=== PATIENT | female | born 1935 | race Caucasian/White ===

== ENCOUNTER 2016-06-01 08:04 | Inpatient (IN) ==
[2016-06-01] MEDS ORDERED: *HR* Morphine 2 MG/ML SYRINGE IVP PRN (09:42)
[2016-06-01] MEDS ORDERED: *HR* Dextrose 50 % in Water (Syg) 50 ML SYRINGE IVP PRN (09:42)
[2016-06-01] MEDS ORDERED: Dextrose Gel 15 GM PO PRN ×2 (09:42)
[2016-06-01] MEDS ORDERED: Ondansetron 4 MG/2 ML VIAL IVP PRN (09:42)
[2016-06-01] MEDS ORDERED: D5% in Water 1,000 ML IV PRN (09:42)
[2016-06-01] MEDS ORDERED: Naloxone 0.4 MG/ML INJ IVP PRN (09:42)
--- NOTE | 2016-06-01 11:36 | Internal Med History&Physical ---
<Thea Mcnally - Last Filed: 06/01/16 11:29> Date of Encounter: 06/01/16 Time of Encounter: 10:50 Assessment and Plan (1) Partial small bowel obstruction Current visit: No Status: Acute Pt had sudden onset sharp, constant,epigastric pain, n/v green and dk brown emesis last night at about 2200 at home. She states that she did not feel well for a few hours prior to that. Pt presented to [facility] for these symptoms and was transferred here. CT showed extensive colonic diverticulosis, mildly dilated proximal small bowel loops up to 3.1 cm with gradual transition to normal caliber loops in the mid abd, suggestive of low grade bowel obstruction. Pt states that her pain has subsided since the NG tube was placed. Abd distended , firm, with hyperactive bs. She is passing has and had a small bm on arrival here. NG to LIWS NPO LR @ 75ml/hr Consult Dr. Pelayo Protonix 40mg IV daily (2) Diabetes mellitus Current visit: No Status: Chronic Glucose 168. A1c 6.1% 1 month ago. Accucheck q6 and prn Sliding scale insulin Hypoglycemia protocol Qualifiers: Diabetes mellitus type: type 2 Diabetes mellitus complication status: with unspecified complications Diabetes mellitus skilled nursing insulin use: without skilled nursing use Qualified Code(s): E11.8 - Type 2 diabetes mellitus with unspecified complications (3) COPD (chronic obstructive pulmonary disease) Current visit: Yes Status: Chronic Pt states that she is well controlled on home medications. LSCTA ant and post. She wears home 02 2L. Continue 02 Continuous pulse ox Duoneb Budesonide neb Albuterol neb prn Qualifiers: COPD type: emphysema Emphysema type: unspecified Qualified Code(s): J43.9 - Emphysema, unspecified (4) Asthma Current visit: Yes Status: Acute Pt well controlled. Plan as above. Qualifiers: Asthma severity: unspecified severity Asthma complication type: uncomplicated Qualified Code(s): J45.909 - Unspecified asthma, uncomplicated (5) Anticoagulated on Coumadin Current visit: No Status: Chronic Pt denies history of stroke. CHADS2 score 3. INR therapeutic 2.8. Will hold pending surgical consult for determination of necessity of surgery. Will recheck daily. (6) Coronary artery disease Current visit: No Status: Chronic Denies chest pain. EKG shows paced rhythm. Stable. Qualifiers: Coronary Disease-Associated Artery/Lesion type: [place] artery [place] vs. transplanted heart: [place] heart Associated angina: without angina Qualified Code(s): I25.10 - Atherosclerotic heart disease of [place] coronary artery without angina pectoris (7) Pacemaker Current visit: No Status: Chronic Stable. EKG paced rhythm. (8) Paroxysmal atrial fibrillation Current visit: No Status: Chronic Plan as above. Internal Medicine - H&P: HPI Chief complaint: abd pain, n/v x 1 day Admitted From: Home Plans for Post Hospital Care: Home History of present illness: Ms. Rodas is a 80 year old female with history of COPD, DM, anemia, CAD, pacemaker, and afib, who began having nausea, vomiting, and sudden onset sharp epigastric pain at about 10pm last night. She had about 5 episodes of green and brown emesis prior to going to the ED. She denies fever, chills, or coffee ground emesis. CT shows small haital hernia, extensive diverticulosis, possible low grade bowel obstruction, reji renal cysts, and multiple scattered attenuating liver lesions. Follow up for those is recommended after pt's acute illness. Pt is now passing gas, had a small bowel movement and states that she feels better. NG on LIWS returning dk brown contents. I requested that the unit clerk call Dr. Pelayo to let him know that the pt has arrived. Past Med Surg Social Fam HX - Past Medical History Medical history: no medical history, atrial fibrillation, cancer, CHF, COPD, coronary artery disease, diabetes, GERD, hyperlipidemia, hypertension, pulmonary embolus, other Psychiatric history: no psych history - Past Surgical History Surgical History: angioplasty/stent, appendectomy, breast surgery, cataract, cholecystectomy, pacemaker/AICD - Social History Smoking Status: Former smoker Smokeless Tobacco Status: No Alcohol use: none Drug use: none - Family History Mother Living Status: Hx Family Cardiac Disorders: Yes (CHF) Hx Family Endocrine Disorder: Yes (Diabetes) Father Age: 87 Living Status: Age at : 87 Cause of : leukemia Hx Family Cardiac Disorders: Yes Hx Family Respiratory Disorders: Yes Hx Family Cancer: Yes Hx Family Endocrine Disorder: Yes Sister Living Status: Still Living Hx Family Cancer: Yes (Breast cancer) Internal Medicine - H&P: Meds Albuterol Sulfate [Albuterol Inhaler] 1 puff IH DAILY PRN 11/28/14 [History] Alendronate Sodium 70 mg PO QWEEK 11/28/14 [History] Atorvastatin [Lipitor] 80 mg PO HS 11/28/14 [History] Calcium Carbonate/Vitamin D3 [Calcium 250+D Tablet] 1 each PO BID 11/28/14 [ History] Clopidogrel [Plavix] 75 mg PO DAILY 11/28/14 [History] Ezetimibe [Zetia] 10 mg PO HS 11/28/14 [History] Formoterol Fumarate [Perforomist] 20 mcg IH BID 11/28/14 [History] Furosemide [Lasix] 20 mg PO DAILY 11/28/14 [History] GlipiZIDE [Glucotrol] 5 mg PO BIDWM 11/28/14 [History] Nitroglycerin 0.3 mg TD DAILY 11/28/14 [History] Sotalol HCl [Betapace] 120 mg PO BID 11/28/14 [History] Warfarin [Coumadin] 5 mg PO QMWF 02/23/15 [History] Budesonide 1 mg IH BID 04/28/16 [History] Cholecalciferol (D-3) [Vitamin D] 1,000 unit PO DAILY 04/28/16 [History] Diltiazem CD (24hr) [Cardizem CD] 120 mg PO BID 04/28/16 [History] Esomeprazole Magnesium [Nexium] 40 mg PO DAILY 04/28/16 [History] Isosorbide MONOnitrate (24 HR) [Imdur] 60 mg PO BID 04/28/16 [History] L.acidoph,Paracasei, B.lactis [Probiotic] 1 each PO 1200 04/28/16 [History] Warfarin [Coumadin] 7.5 mg PO QTUTHSA 04/28/16 [History] Esomeprazole Magnesium [Nexium] 40 mg PO DAILY 06/01/16 [History] Fish Oil/Dha/Epa [Fish Oil 1,200 mg Fish Oil] 2 each PO DAILY 06/01/16 [History] Tiotropium [Spiriva] 18 mcg IH 0700 06/01/16 [History] Allergies bacitracin [From Neosporin ([id number])] Allergy (Verified 06/01/16 00:13) Blister cetirizine Allergy (Verified 06/01/16 00:13) Confusion ciprofloxacin Allergy (Verified 06/01/16 00:13) Difficulty Breathing codeine Allergy (Verified 06/01/16 00:13) Drowsy diazepam [From Valium] Allergy (Verified 06/01/16 00:13) See Comments pt states it caused her to be in a trance miconazole [From Neosporin AF] Allergy (Verified 06/01/16 00:13) Blister Neomycin Allergy (Verified 06/01/16 00:13) Blister Penicillins Allergy (Verified 06/01/16 00:13) See Comments pt states she feels off balance when walking polymyxin B Allergy (Verified 06/01/16 00:13) Blister promethazine [From Phenergan] Allergy (Verified 06/01/16 00:) See Comments pt not sure, she states she received it while unconsious and her nurse told her to never take phenergan Sulfa (Sulfonamide Antibiotics) Allergy (Verified 06/01/16 00:13) Confusion All Systems PM: A 10-system review of systems was performed and is negative for pertinent findings except as documented above in the HPI. - Constitutional Constitutional: no chills, no fever(s), no weakness - Cardiovascular Cardiovascular ROS IM: chest pain, no diaphoresis, no dyspnea, no lightheadedness Additional comments: Pt states that abd pain radiated into chest last night. - Respiratory Respiratory: no cough, no dyspnea on exertion, no wheezing, no chest congestion - Gastrointestinal Gastrointestinal: abdominal pain, bloating, constipation, cramping, nausea, vomiting, no coffee ground emesis, no diarrhea, no dysphagia, no excessive flatus, no hematemesis, no hematochezia, no loose stools - Genitourinary Genitourinary: no dysuria - Integumentary Integumentary IM: rash - Constitutional Vitals: Temp Pulse Resp BP Pulse Ox 98.4 F 100 16 117/58 96 06/01/16 09:51 06/01/16 09:51 06/01/16 09:51 06/01/16 09:51 06/01/16 09:51 General appearance: Present: cooperative, A&O X 3, pleasant, no acute distress, answers questions appropriately - ENT ENT exam: Present: mucous membranes moist, normal exam, normal oropharynx - Neck Neck exam general surgery: Present: normal inspection. Absent: lymphadenopathy , tenderness - Respiratory Respiratory exam: Present: decreased breath sounds. Absent: rales, respiratory distress, rhonchi, wheezes, tachypnea - Cardiovascular Cardiovascular exam: Present: RRR, +S1, +S2. Absent: diastolic murmur, systolic murmur - GI/Abdominal GI/Abdominal exam: Present: distended, firm, hyperactive bowel sounds, tenderness - Rectal Rectal exam: Present: deferred - Extremities Exam Extremities exam: Present: normal capillary refill, normal inspection, pedal edema, warm, radial pulses palpable and symetrical. Absent: joint swelling, tenderness - Neurological Exam Neurological exam: Present: alert, oriented X3, strengths equal and symetr throughout. Absent: no focal deficits, facial droop, speech deficit Internal Med - H&P Results - EKG Data Rate: normal - EKG Data Prior EKG available for review: no Interpretation IM: normal EKG EKG comments: 06/01/16 11:39 EKG shows ventricular pacing. No prior EKGs available for comparison Rated 80 ID int 161ms QRS 118 <Nano Andujar E - Last Filed: 06/01/16 18:16> Date of Encounter: 06/01/16 Internal Medicine - H&P: HPI History of present illness: Ms. Rodas is a 80 year old female All Systems PM: A 10-system review of systems was performed and is negative for pertinent findings except as documented above in the HPI. - Constitutional Vitals: Temp Pulse Resp BP Pulse Ox 99.3 F 70 16 137/57 97 06/01/16 15:00 06/01/16 15:00 06/01/16 16:25 06/01/16 15:00 06/01/16 16:25 - Attending Attestation I examined this patient and reviewed laboratory, imaging and all diagnostic data. My medical decision-making was reviewed with SARTHAK Mcnally. I agree with the documented findings, disposition and treatment plan as described above. 80 yo F with pmh of COPD, DM, CAD, pacemaker, and afib who presented to [facility] ED with nausea, vomiting and abdominal pain. CTAP showed low grade bowel obstruction. NGT was inserted and 200 ml returned. On arrival to [facility] medicine floor, patient had a BM and is passing flatus. Abdomen is mildly distended and hyperactive bowel sounds. 1. partial SBO. IVF. Dr Pelayo is following, NGT removed. NPO. 2. Afib on anticoagulation with coumadin. INR is therapeutic. holding coumadin in case of surgery. 3. DM. ISS. npo
[2016-06-01] MEDS ORDERED: Albuterol 2.5 MG/3 ML NEBULIZER IH PRN (11:50)
[2016-06-01] MEDS ORDERED: Ipratropium/Albuterol Neb 3 ML ONE (11:59)
[2016-06-01] MEDS: Ipratropium/Albuterol Neb 3 ML IH SCH ×4 (12:03→23:45)
[2016-06-01] MEDS: Ringers Solution, Lactated 1,000 ML IVC SCH (12:15)
[2016-06-01] MEDS: Pantoprazole 40 MG VIAL IVP SCH (12:15)
[2016-06-01] MEDS: Insulin LISPRO 300 UNITS/3 ML VIAL SQ SCH ×2 (12:16→19:18)
--- NOTE | 2016-06-01 12:43 | General Surgery Consult Note ---
Date of Encounter: 06/01/16 Time of Encounter: 12:05 History of Present Illness Reason for consult: abdominal pain (Nausea, vomiting and radiologic evidence of possible low-grade bowel obstruction) Requesting physician: Jose Marrero History of present illness: 80-year-old female answered to [facility] after presenting to [facility] with new-onset nausea and vomiting followed by mid to upper abdominal pain. The patient indicates feeling somewhat poorly for approximately a week prior to the abrupt onset of severe symptoms, and once the symptoms radiated into her chest, she presented to [facility] for further evaluation and treatment. Patient describes several episodes of emesis last evening. Laboratories obtained early this morning demonstrated a white count of 10.6, hemoglobin 12.5, hematocrit 39.1. Platelet count 201,000. PT 31 with INR 2.8. Electrolytes BUN and creatinine were within normal limits ; blood sugar 168. Total bilirubin 0.4, AST 63, ALT 96, alkaline phosphatase 57. A CT of the abdomen and pelvis, which was personally reviewed with [facility], demonstrated evidence of previous cholecystectomy with mild prominence of the intrahepatic and extra hepatic biliary ducts consistent with prior cholecystectomy. Scattered hypoattenuating liver lesions are noted, these appear slightly larger when compared to previous exams (07/19/12). No obvious abnormalities to the pancreas were described, a small hiatal hernia was evident. The proximal small bowel loops were mildly dilated, measuring up to 3.1 cm. Gradual transition to normal caliber is described. The terminal ileum was unremarkable. Extensive pancolonic diverticulosis is noted. On my review of this CT - oral contrast administered for this study is evident within the colon. There was no free fluid, fluid collections or phlegmon, or obvious lymphadenopathy detected. Past medical history: Coronary artery disease, status post coronary stents. She was unaware of any previous history of NC. Diabetes mellitus; Atrial fibrillation with chronic anticoagulation; CHF; hypertension; hyperlipidemia; left breast cancer; asthma Surgical history: Open cholecystectomy, 1980; open tubal ligation 1967; excision ganglion cyst right ankle/foot; left mastectomy; pacer/AICD; cataract extraction Social history: Former smoker; quit many years ago; denies any alcohol or illicit drug use Family history: Notable for CHF, diabetes and breast cancer; father with history of leukemia. Physical examination: Age-appropriate woman resting comfortably in her hospital bed; afebrile at 98.4, pulse 96-100; respirations 16, blood pressure 117/58 Accu-Chek of 3; SPO2 on 2 L per nasal cannula 96%.. NG tube in place with poor drainage approximately 200 mL since insertion. Skin: Warm, no obvious jaundice Cardiac: Irregular rate Lungs: Clear to auscultation, no audible wheezes or rales Abdomen: Soft, nontender. No palpable intra-abdominal masses, hepatosplenomegaly, or rebound. Bowel sounds active. Patient describes flatus and a bowel movement since transfer to [facility]. Extremities without obvious clubbing cyanosis or edema. Impression: A 80-year-old female transferred to [facility] after presenting to [facility] with abrupt onset abdominal pain following several episodes of emesis. CT completed at [facility] demonstrated minimally dilated proximal small bowel with gradual transition to normal caliber mid and distal small bowel. Oral contrast administered for the study is evident within the proximal colon. Findings appear to be more likely due to a viral etiology but the possibility of a partial or low grade small bowel obstruction cannot be excluded. The patient is anticoagulated (PT 31 / INR 2.8 ) which will require reversal before any surgical intervention should such therapy be indicated. The presence of multiple medical comorbidities make the patient high risk for surgical intervention. Currently, the patient is improved with passage flatus and BM. Will follow with you. Please hold anticoagulation for now. Past Med Surg Social Fam HX - Past Medical History Medical history: no medical history, atrial fibrillation, cancer, CHF, COPD, coronary artery disease, diabetes, GERD, hyperlipidemia, hypertension, pulmonary embolus, other Psychiatric history: no psych history - Past Surgical History Surgical History: angioplasty/stent, appendectomy, breast surgery, cataract, cholecystectomy, pacemaker/AICD - Social History Smoking Status: Former smoker Smokeless Tobacco Status: No Alcohol use: none Drug use: none - Family History Mother Living Status: Hx Family Cardiac Disorders: Yes (CHF) Hx Family Endocrine Disorder: Yes (Diabetes) Father Age: 87 Living Status: Age at : 87 Cause of : leukemia Hx Family Cardiac Disorders: Yes Hx Family Respiratory Disorders: Yes Hx Family Cancer: Yes Hx Family Endocrine Disorder: Yes Sister Living Status: Still Living Hx Family Cancer: Yes (Breast cancer) Medications and Allergies Albuterol Sulfate [Albuterol Inhaler] 1 puff IH DAILY PRN 11/28/14 [History] Alendronate Sodium 70 mg PO QWEEK 11/28/14 [History] Atorvastatin [Lipitor] 80 mg PO HS 11/28/14 [History] Calcium Carbonate/Vitamin D3 [Calcium 250+D Tablet] 1 each PO BID 11/28/14 [ History] Clopidogrel [Plavix] 75 mg PO DAILY 11/28/14 [History] Ezetimibe [Zetia] 10 mg PO HS 11/28/14 [History] Formoterol Fumarate [Perforomist] 20 mcg IH BID 11/28/14 [History] Furosemide [Lasix] 20 mg PO DAILY 11/28/14 [History] GlipiZIDE [Glucotrol] 5 mg PO BIDWM 11/28/14 [History] Nitroglycerin 0.3 mg TD DAILY 11/28/14 [History] Sotalol HCl [Betapace] 120 mg PO BID 11/28/14 [History] Warfarin [Coumadin] 5 mg PO QMWF 02/23/15 [History] Budesonide 1 mg IH BID 04/28/16 [History] Cholecalciferol (D-3) [Vitamin D] 1,000 unit PO DAILY 04/28/16 [History] Diltiazem CD (24hr) [Cardizem CD] 120 mg PO BID 04/28/16 [History] Esomeprazole Magnesium [Nexium] 40 mg PO DAILY 04/28/16 [History] Isosorbide MONOnitrate (24 HR) [Imdur] 60 mg PO BID 04/28/16 [History] L.acidoph,Paracasei, B.lactis [Probiotic] 1 each PO 1200 04/28/16 [History] Warfarin [Coumadin] 7.5 mg PO QTUTHSA 04/28/16 [History] Esomeprazole Magnesium [Nexium] 40 mg PO DAILY 06/01/16 [History] Fish Oil/Dha/Epa [Fish Oil 1,200 mg Fish Oil] 2 each PO DAILY 06/01/16 [History] Tiotropium [Spiriva] 18 mcg IH 0700 06/01/16 [History] Allergies bacitracin [From Neosporin ([id number])] Allergy (Verified 06/01/16 00:13) Blister cetirizine Allergy (Verified 06/01/16 00:13) Confusion ciprofloxacin Allergy (Verified 06/01/16 00:13) Difficulty Breathing codeine Allergy (Verified 06/01/16 00:13) Drowsy diazepam [From Valium] Allergy (Verified 06/01/16 00:13) See Comments pt states it caused her to be in a trance miconazole [From Neosporin AF] Allergy (Verified 06/01/16 00:13) Blister Neomycin Allergy (Verified 06/01/16 00:13) Blister Penicillins Allergy (Verified 06/01/16 00:13) See Comments pt states she feels off balance when walking polymyxin B Allergy (Verified 06/01/16 00:13) Blister promethazine [From Phenergan] Allergy (Verified 06/01/16 00:13) See Comments pt not sure, she states she received it while unconsious and her nurse told her to never take phenergan Sulfa (Sulfonamide Antibiotics) Allergy (Verified 06/01/16 00:13) Confusion Review of Systems All systems PM: A 10-system review of systems was performed and is negative for pertinent findings except as documented above in the HPI. General Surgery Exam Initial Vital Signs Temp Pulse Resp BP Pulse Ox 98.4 F 100 16 117/58 96 06/01/16 09:51 06/01/16 09:51 06/01/16 09:51 06/01/16 09:51 06/01/16 09:51 Exam Initial Vital Signs Temp Pulse Resp BP Pulse Ox 98.4 F 100 16 117/58 96 06/01/16 09:51 06/01/16 09:51 06/01/16 09:51 06/01/16 09:51 06/01/16 09:51 Results - Labs Abnormal lab results POC Glucose 103 (58-89) H 06/01/16 11:51 All other labs normal. Consult Discharge Plan - Plan Referrals: Justice Tapia MD [Primary Care Provider] -
[2016-06-01] MEDS: Budesonide Neb 0.25 MG/2 ML IH SCH (22:44)
[2016-06-02] MEDS: Ringers Solution, Lactated 1,000 ML IVC SCH ×2 (00:26→15:03)
[2016-06-02] MEDS: Insulin LISPRO 300 UNITS/3 ML VIAL SQ SCH ×3 (00:27→20:34)
[2016-06-02] MEDS: Ipratropium/Albuterol Neb 3 ML IH SCH ×6 (04:01→22:24)
[2016-06-02 06:02] LABS: Basophils % 0.2 %; Eosinophils % 0.7 %; Hematocrit 35.8 % (35.3-44.9); Hemoglobin 11.3 g/dL (11.5-15.4); Immature Granulocytes % 0.3 % (0-4); Lymphocytes # 1.9 K/mcL (0.6-4.6); Lymphocytes % 31.7 %; Mean Corpuscular HGB Conc 31.6 g/dL (31.6-35.5); Mean Corpuscular Hemoglobin 27.9 pg (28.0-33.3); Mean Corpuscular Volume 88.4 fL (83.0-100.0); Monocytes # 0.6 K/mcL (0.0-1.3); Monocytes % 10.3 %; Neutrophils # 3.4 K/mcL (1.6-8.9); Platelet Count 194 K/mcL (140-400); Prothrombin Time 22.4 Seconds (9.4-12.1); Red Blood Count 4.05 M/mcL (3.82-4.97); Red Cell Distribution Width 15.4 % (11.5-14.5); Segmented Neutrophils % 56.8 %
[2016-06-02 06:16] LABS: Alanine Aminotransferase 58 Units/L (0-55); Albumin 2.8 g/dL (3.5-5.0); Alkaline Phosphatase 46 Units/L (38-126); Aspartate Amino Transferase 34 Units/L (5-34); BUN/Creatinine Ratio 15 (6-26); Bilirubin,Total 0.4 mg/dL (0.2-1.2); Blood Urea Nitrogen 9 mg/dL (7-20); Calcium 7.9 mg/dL (8.6-10.8); Carbon Dioxide 31 mEq/L (19-29); Chloride 102 mEq/L (98-109); Globulin 2.8 g/dL (2.4-3.5); Glucose 124 mg/dL (70-99); Magnesium 1.2 mg/dL (1.6-2.6); Osmolality,Calculated 296 (280-300); Phosphorous 2.6 mg/dL (2.3-4.7); Potassium 3.4 mEq/L (3.5-4.5); Sodium 143 mEq/L (136-145); Total Protein 5.6 g/dL (6.0-8.3); eGFR For African Americans > 60 (> 60); eGFR For Non-African Americans > 60 (> 60)
[2016-06-02] MEDS: Budesonide Neb 0.25 MG/2 ML IH SCH ×2 (07:52→20:08)
[2016-06-02] MEDS: Pantoprazole 40 MG VIAL IVP SCH (09:47)
[2016-06-02] MEDS ORDERED: Potassium Chloride Elixir 20 MEQ/15 ML UDC GTUBE ONE (11:18)
[2016-06-02] MEDS ORDERED: Magnesium Sulfate 2 GM in D5% in Water 100 ML IVPB ONE (11:18)
--- NOTE | 2016-06-02 15:52 | Internal Med Progress Note ---
Date of Encounter: 06/02/16 Time of Encounter: 12:00 - Assessment and plan (1) Small bowel obstruction Current Visit: Yes Status: Acute (2) Diabetes mellitus Current Visit: No Status: Chronic Qualifiers: Diabetes mellitus type: type 2 Diabetes mellitus complication status: with unspecified complications Diabetes mellitus care home insulin use: without care home use Qualified Code(s): E11.8 - Type 2 diabetes mellitus with unspecified complications (3) Paroxysmal atrial fibrillation Current Visit: No Status: Chronic (4) Hypokalemia Current Visit: Yes Status: Acute (5) Hypoalbuminemia Current Visit: Yes Status: Acute Assessment and plan: Plan Advance diet to full liquid diet, resume home medication, insulin sliding scale , add magnesium sulfate 2 g, potassium chloride 60 mEq. Check electrolytes next a.m.PT/OT, Ambulate .Possible discharge next AM - Time Spent With Patient 25 - 35 minutes - Subjective Interval history: patient denies any chest pain,patient denies any nausea or vomiting.had bowel movement.tolerating full liquid diet - Constitutional Vitals: Temp Pulse Resp BP Pulse Ox 98.5 F 70 18 143/70 96 06/02/16 11:19 06/02/16 11:19 06/02/16 11:19 06/02/16 11:19 06/02/16 11:19 General appearance: Present: cooperative, A&O X 3, pleasant, no acute distress, answers questions appropriately - Respiratory Respiratory exam: Present: decreased breath sounds. Absent: accessory muscle use, rales, rhonchi, wheezes - Cardiovascular Cardiovascular exam: Present: irregular rhythm, +S1, +S2. Absent: diastolic murmur, gallop, rubs, systolic murmur - GI/Abdominal GI/Abdominal exam: Present: hypoactive bowel sounds, soft, tenderness (mild left lower quadrant tendernes), no peritoneal signs. Absent: mass - Extremities Exam Extremities exam: Present: warm, radial pulses palpable and symetrical. Absent : calf tenderness, cyanotic, pedal edema - Skin Skin exam: Present: dry, intact Internal Medicine: Result - Labs CBC & Chem 7: 06/02/16 05:32 06/02/16 05:32 Labs: Short CBC 06/02/16 Range/Units 05:32 WBC 5.9 (4.3-11.1) K/mcL Hgb 11.3 L (11.5-15.4) g/dL Hct 35.8 (35.3-44.9) % Plt Count 194 (140-400) K/mcL Neutrophils # 3.4 (1.6-8.9) K/mcL BMP 06/02/16 05:32 Sodium 143 Potassium 3.4 L Chloride 102 Carbon Dioxide 31 H BUN 9 Creatinine 0.60 Glucose 124 H Calcium 7.9 L Liver Function 06/02/16 Range/Units 05:32 Total Bilirubin 0.4 (0.2-1.2) mg/dL AST 34 (5-34) Units/L ALT 58 H (0-55) Units/L Alkaline Phosphatase 46 (38-126) Units/L Albumin 2.8 L (3.5-5.0) g/dL - ABG Interpretation ABG results: PT/INR, D-dimer PT 22.4 Seconds (9.4-12.1) H 06/02/16 05:32 Consult Discharge Plan - Plan Referrals: Justice Tapia MD [Primary Care Provider] -
[2016-06-02] MEDS ORDERED: *HR* Warfarin 7.5 MG TABLET PO SCH (18:00)
--- NOTE | 2016-06-02 19:34 | General Surgery Progress Note ---
Date of Encounter: 06/02/16 Time of Encounter: 19:30 Subjective Patient reports: feels better, tolerating liquids well, bowel movement Narrative: General Surgery: delayed note - patient seen and examined at approximately 1300 and again this evening. Patient has been afebrile, no recurrent nausea vomiting since admission. Abdominal pain resolved.. Diet advanced earlier today to full liquids, the patient has tolerated well. Since last encounter with the patient (1300 hrs.) the patient has remained well and reports multiple bowel movements. This evening - maximum temperature has been 99.4; patient has remained hemodynamically stable Abdomen: Soft, nontender with active bowel sounds. Recommendations: Advance diet to regular Resume anticoagulation as it is not anticipated the patient will require surgical intervention. Plan: I will sign off but be available to you should the patient's status change. Further management per Primary Team / Hospitalists Thank you for this consultation. Objective Vital Signs - Last 8 Hours Temp Pulse Resp BP Pulse Ox 06/02/16 16:19 16 96 06/02/16 15:44 99.4 F 70 16 143/54 96 Intake and Output 06/02/16 06/02/16 06/02/16 07:59 15:59 23:59 Intake Total 707 / 707 1400 / 1400 120 / 120 Output Total 525 / 525 550 / 550 300 / 300 Balance 182 / 182 850 / 850 -180 / -180 Intake: IV Fluids 707 / 707 700 / 700 Lactated Ringers 1,000 ML 707 / 707 700 / 700 @ 75 mls/hr IVC .[id number] [facility] Rx#:[id number] Oral 0 / 0 700 / 700 120 / 120 Output: Urine 525 / 525 550 / 550 300 / 300 Other: Meal Lunch Dinner Percent of Meal Consumed 25% 10% Stool Size Moderate Small Stool Consistency soft loose Stool Color Brown Brown Green # Voids 1 # Bowel Movements 1 Blood Glucose* 127 207 - Labs 06/02/16 05:32 06/02/16 05:32 Diabetes panel 06/02/16 Range/Units 05:32 Sodium 143 (136-145) mEq/L Potassium 3.4 L (3.5-4.5) mEq/L Chloride 102 (98-109) mEq/L Carbon Dioxide 31 H (19-29) mEq/L BUN 9 (7-20) mg/dL Creatinine 0.60 (0.57-1.11) mg/dL Glucose 124 H (70-99) mg/dL Calcium 7.9 L (8.6-10.8) mg/dL AST 34 (5-34) Units/L ALT 58 H (0-55) Units/L Alkaline Phosphatase 46 (38-126) Units/L Albumin 2.8 L (3.5-5.0) g/dL Calcium panel 06/02/16 Range/Units 05:32 Calcium 7.9 L (8.6-10.8) mg/dL Phosphorus 2.6 (2.3-4.7) mg/dL Albumin 2.8 L (3.5-5.0) g/dL Pituitary panel 06/02/16 Range/Units 05:32 Sodium 143 (136-145) mEq/L Potassium 3.4 L (3.5-4.5) mEq/L Chloride 102 (98-109) mEq/L Carbon Dioxide 31 H (19-29) mEq/L BUN 9 (7-20) mg/dL Creatinine 0.60 (0.57-1.11) mg/dL Glucose 124 H (70-99) mg/dL Calcium 7.9 L (8.6-10.8) mg/dL Adrenal panel 06/02/16 Range/Units 05:32 Sodium 143 (136-145) mEq/L Potassium 3.4 L (3.5-4.5) mEq/L Chloride 102 (98-109) mEq/L Carbon Dioxide 31 H (19-29) mEq/L BUN 9 (7-20) mg/dL Creatinine 0.60 (0.57-1.11) mg/dL Glucose 124 H (70-99) mg/dL Calcium 7.9 L (8.6-10.8) mg/dL Total Bilirubin 0.4 (0.2-1.2) mg/dL AST 34 (5-34) Units/L ALT 58 H (0-55) Units/L Alkaline Phosphatase 46 (38-126) Units/L Albumin 2.8 L (3.5-5.0) g/dL Consult Discharge Plan - Plan Referrals: Justice Tapia MD [Primary Care Provider] -
[2016-06-02] MEDS: Magnesium Oxide 400 MG TABLET PO SCH (20:34)
[2016-06-02] MEDS: Diltiazem CD (24hr) 120 MG CAPSULE PO SCH (20:34)
[2016-06-03] MEDS: Ipratropium/Albuterol Neb 3 ML IH SCH ×6 (03:59→23:35)
[2016-06-03] MEDS: Ringers Solution, Lactated 1,000 ML IVC SCH (04:21)
[2016-06-03 05:45] LABS: Basophils % 0.4 %; Eosinophils % 0.6 %; Hematocrit 33.9 % (35.3-44.9); Hemoglobin 10.4 g/dL (11.5-15.4); Lymphocytes # 1.3 K/mcL (0.6-4.6); Lymphocytes % 25.4 %; Mean Corpuscular HGB Conc 30.7 g/dL (31.6-35.5); Mean Corpuscular Hemoglobin 27.4 pg (28.0-33.3); Mean Corpuscular Volume 89.4 fL (83.0-100.0); Mean Platelet Volume 10.7 fL (9.4-12.4); Monocytes # 0.6 K/mcL (0.0-1.3); Monocytes % 12.3 %; Nucleated Red Blood Cells 0.4 /100 WBC (0); Platelet Count 196 K/mcL (140-400); Red Blood Count 3.79 M/mcL (3.82-4.97); Red Cell Distribution Width 15.6 % (11.5-14.5); Segmented Neutrophils % 60.3 %
[2016-06-03 05:46] LABS: INR 1.5; Prothrombin Time 16.5 Seconds (9.4-12.1)
[2016-06-03 06:05] LABS: BUN/Creatinine Ratio 10 (6-26); Calcium 7.9 mg/dL (8.6-10.8); Carbon Dioxide 31 mEq/L (19-29); Chloride 106 mEq/L (98-109); Glucose 130 mg/dL (70-99); Magnesium 1.5 mg/dL (1.6-2.6); Osmolality,Calculated 295 (280-300); Potassium 4.1 mEq/L (3.5-4.5); Sodium 143 mEq/L (136-145); eGFR For African Americans > 60 (> 60); eGFR For Non-African Americans > 60 (> 60)
[2016-06-03 06:18] LABS: Blood Urea Nitrogen 5 mg/dL (7-20)
[2016-06-03] MEDS: Budesonide Neb 0.25 MG/2 ML IH SCH ×2 (07:59→21:04)
[2016-06-03] MEDS: Insulin LISPRO 300 UNITS/3 ML VIAL SQ SCH ×4 (08:07→20:23)
[2016-06-03] MEDS: Diltiazem CD (24hr) 120 MG CAPSULE PO SCH ×2 (08:18→20:22)
[2016-06-03] MEDS: Magnesium Oxide 400 MG TABLET PO SCH ×2 (08:18→20:22)
[2016-06-03] MEDS ORDERED: Magnesium Sulfate 2 GM in D5% in Water 100 ML IVPB ONE (09:21)
[2016-06-03] MEDS ORDERED: Furosemide 20 MG/2 ML VIAL IVP SCH (12:27)
[2016-06-03] MEDS ORDERED: Furosemide 40 MG/4 ML VIAL IVP ONE (12:30)
--- NOTE | 2016-06-03 16:14 | Internal Med Progress Note ---
Date of Encounter: 06/03/16 Time of Encounter: 11:14 - Assessment and plan (1) Small bowel obstruction Current Visit: Yes Status: Acute (2) Diabetes mellitus Current Visit: No Status: Chronic Qualifiers: Diabetes mellitus type: type 2 Diabetes mellitus complication status: with unspecified complications Diabetes mellitus usp insulin use: without usp use Qualified Code(s): E11.8 - Type 2 diabetes mellitus with unspecified complications (3) Paroxysmal atrial fibrillation Current Visit: No Status: Chronic (4) Hypoalbuminemia Current Visit: Yes Status: Acute (5) Volume overload Current Visit: Yes Status: Acute Qualifiers: Hypervolemia type: unspecified Qualified Code(s): E87.70 - Fluid overload, unspecified - Time Spent With Patient add Lasix 40 mg IV now, close monitoring of her condition, check chest x-ray, continue monitoring over next 24 . Possible discharge next a.m., monitor intake and output and weight.pharmacy to dose warfarin. Resume all home medication. Discontinue IV fluid. Possible discharge next a.m. 25 - 35 minutes - Subjective Interval history: patient denies any chest pain,patient denies any nausea or vomiting.Patient is complaining of shortness of breath and orthopnea.she is tolerating her meals - Constitutional Vitals: Temp Pulse Resp BP Pulse Ox 98.3 F 75 16 136/60 93 L 06/03/16 14:50 06/03/16 14:50 06/03/16 14:50 06/03/16 14:50 06/03/16 14:50 General appearance: Present: cooperative, A&O X 3, pleasant, no acute distress, answers questions appropriately - Head Head exam: Present: atraumatic, normocephalic - Neck Neck exam general surgery: Present: supple, trachea midline. Absent: lymphadenopathy - Respiratory Respiratory exam: Present: decreased breath sounds, respiratory distress, rhonchi. Absent: accessory muscle use, rales, wheezes - Cardiovascular Cardiovascular exam: Present: irregular rhythm, +S1, +S2. Absent: diastolic murmur, gallop, rubs, systolic murmur - GI/Abdominal GI/Abdominal exam: Present: normal bowel sounds, soft, tenderness (mild diffuse abdominal tenderness), no peritoneal signs. Absent: distended - Extremities Exam Extremities exam: Present: pedal edema, warm, radial pulses palpable and symetrical. Absent: calf tenderness, cyanotic - Neurological Exam Neurological exam: Present: CN II-XII intact, oriented X3, no focal deficits. Absent: pronater drift, facial droop, speech deficit - Skin Skin exam: Present: dry, intact Internal Medicine: Result - Labs CBC & Chem 7: 06/03/16 05:04 06/03/16 05:04 Labs: Short CBC 06/03/16 Range/Units 05:04 WBC 5.0 (4.3-11.1) K/mcL Hgb 10.4 L (11.5-15.4) g/dL Hct 33.9 L (35.3-44.9) % Plt Count 196 (140-400) K/mcL Neutrophils # 3.0 (1.6-8.9) K/mcL BMP 06/03/16 05:04 Sodium 143 Potassium 4.1 Chloride 106 Carbon Dioxide 31 H BUN 5 L Creatinine 0.52 L Glucose 130 H Calcium 7.9 L - ABG Interpretation ABG results: PT/INR, D-dimer PT 16.5 Seconds (9.4-12.1) H 06/03/16 05:04 Consult Discharge Plan - Plan Referrals: Justice Tapia MD [Primary Care Provider] -
[2016-06-03] MEDS ORDERED: Warfarin perPT PO PRN (18:00)
[2016-06-03] MEDS ORDERED: *HR* Warfarin 5 MG TABLET PO SCH (18:00)
[2016-06-04 05:40] VITALS: BP 116/58
[2016-06-04 05:41] LABS: INR 1.3; Prothrombin Time 14.2 Seconds (9.4-12.1)
[2016-06-04] MEDS: Ipratropium/Albuterol Neb 3 ML IH SCH ×3 (05:55→11:45)
[2016-06-04 06:23] LABS: Basophils % 0.2 %; Eosinophils % 0.7 %; Hematocrit 32.8 % (35.3-44.9); Hemoglobin 10.5 g/dL (11.5-15.4); Immature Platelets 4.9 % (1.1-6.1); Lymphocytes # 1.1 K/mcL (0.6-4.6); Lymphocytes % 26.4 %; Mean Corpuscular Hemoglobin 28.1 pg (28.0-33.3); Mean Corpuscular Volume 87.7 fL (83.0-100.0); Mean Platelet Volume 11.3 fL (9.4-12.4); Monocytes # 0.6 K/mcL (0.0-1.3); Monocytes % 13.4 %; Neutrophils # 2.4 K/mcL (1.6-8.9); Platelet Count 200 K/mcL (140-400); Red Blood Count 3.74 M/mcL (3.82-4.97); Red Cell Distribution Width 15.3 % (11.5-14.5); Segmented Neutrophils % 58.3 %
[2016-06-04 06:34] LABS: BUN/Creatinine Ratio 12 (6-26); Blood Urea Nitrogen 7 mg/dL (7-20); Carbon Dioxide 37 mEq/L (19-29); Chloride 100 mEq/L (98-109); Glucose 102 mg/dL (70-99); Magnesium 1.6 mg/dL (1.6-2.6); Osmolality,Calculated 294 (280-300); Phosphorous 2.9 mg/dL (2.3-4.7); Potassium 3.6 mEq/L (3.5-4.5); Sodium 143 mEq/L (136-145); eGFR For African Americans > 60 (> 60); eGFR For Non-African Americans > 60 (> 60)
[2016-06-04 06:58] LABS: Platelet Estimate Normal (Normal)
[2016-06-04] MEDS: Budesonide Neb 0.25 MG/2 ML IH SCH (07:47)
[2016-06-04] MEDS: Insulin LISPRO 300 UNITS/3 ML VIAL SQ SCH (08:07)
[2016-06-04] MEDS ORDERED: Furosemide 20 MG/2 ML VIAL IVP SCH (09:00)
[2016-06-04] MEDS ORDERED: Furosemide 20 MG TABLET PO SCH (09:00)
--- NOTE | 2016-06-04 09:05 | Discharge Summary ---
Date of Encounter: 06/04/16 Time of Encounter: 08:00 - Discharge Diagnosis (1) Small bowel obstruction Priority: Primary Status: Acute Comments: Patient need to have Follow up with evp and chief operating officer for her multiple liver lesion with change in size (2) Diabetes mellitus Priority: Secondary Status: Chronic Qualifiers: Diabetes mellitus type: type 2 Diabetes mellitus complication status: with unspecified complications Diabetes mellitus nursing home insulin use: without nursing home use Qualified Code(s): E11.8 - Type 2 diabetes mellitus with unspecified complications (3) Paroxysmal atrial fibrillation Priority: Secondary Status: Chronic (4) Hypoalbuminemia Priority: Secondary Status: Acute (5) Volume overload Priority: Secondary Status: Acute Qualifiers: Hypervolemia type: unspecified Qualified Code(s): E87.70 - Fluid overload, unspecified - Discharge Medications Prescriptions: Magnesium Oxide [Mag-Ox] 400 mg PO BID #60 tablet Home Medications: Albuterol Sulfate [Albuterol Inhaler] 1 puff IH DAILY PRN 11/28/14 [History] Alendronate Sodium 70 mg PO QWEEK 11/28/14 [History] Atorvastatin [Lipitor] 80 mg PO HS 11/28/14 [History] Calcium Carbonate/Vitamin D3 [Calcium 250+D Tablet] 1 each PO BID 11/28/14 [ History] Clopidogrel [Plavix] 75 mg PO DAILY 11/28/14 [History] Ezetimibe [Zetia] 10 mg PO HS 11/28/14 [History] Formoterol Fumarate [Perforomist] 20 mcg IH BID 11/28/14 [History] Furosemide [Lasix] 20 mg PO DAILY 11/28/14 [History] GlipiZIDE [Glucotrol] 5 mg PO BIDWM 11/28/14 [History] Nitroglycerin 0.3 mg TD DAILY 11/28/14 [History] Sotalol HCl [Betapace] 120 mg PO BID 11/28/14 [History] Warfarin [Coumadin] 5 mg PO QMWF 02/23/15 [History] Budesonide 1 ml IH BID 04/28/16 [History] Cholecalciferol (D-3) [Vitamin D] 1,000 unit PO DAILY 04/28/16 [History] Diltiazem CD (24hr) [Cardizem CD] 120 mg PO BID 04/28/16 [History] Isosorbide MONOnitrate (24 HR) [Imdur] 60 mg PO BID 04/28/16 [History] L.acidoph,Paracasei, B.lactis [Probiotic] 1 each PO 1200 04/28/16 [History] Warfarin [Coumadin] 7.5 mg PO SUTUTHSA 04/28/16 [History] Esomeprazole Magnesium [Nexium] 40 mg PO DAILY 06/01/16 [History] Fish Oil/Dha/Epa [Fish Oil 1,200 mg Fish Oil] 2 each PO DAILY 06/01/16 [History] Cyanocobalamin/FA/Pyridoxine [Folbic Tablet] 1 tab PO DAILY 06/02/16 [History] Enalapril Maleate 10 mg PO BID 06/02/16 [History] Magnesium Oxide [Mag-Ox] 400 mg PO BID #60 tablet 06/04/16 [Rx] Allergies/Adverse Reactions: Allergies bacitracin [From Neosporin ([id number])] Allergy (Verified 06/02/16 12:17) Blister cetirizine Allergy (Verified 06/02/16 12:17) Confusion ciprofloxacin Allergy (Verified 06/02/16 12:17) Difficulty Breathing codeine Allergy (Verified 06/02/16 12:17) Drowsy diazepam [From Valium] Allergy (Verified 06/02/16 12:17) See Comments pt states it caused her to be in a trance miconazole [From Neosporin AF] Allergy (Verified 06/02/16 12:17) Blister Neomycin Allergy (Verified 06/02/16 12:17) Blister Penicillins Allergy (Verified 06/02/16 12:17) See Comments pt states she feels off balance when walking polymyxin B Allergy (Verified 06/02/16 12:17) Blister promethazine [From Phenergan] Allergy (Verified 06/02/16 12:17) See Comments pt not sure, she states she received it while unconsious and her nurse told her to never take phenergan Sulfa (Sulfonamide Antibiotics) Allergy (Verified 06/02/16 12:17) Confusion Date of admission: 06/01/16 16:07 Primary care physician: Justice Tapia MD Consults: 06/01/16 09:42 Consult to Surgery [CONS] Routine Consulting Provider: [facility] Reason for Consult: KIERSTENO. [facility] called Dr Pelayo Call Completed: Yes 06/01/16 10:47 Consult to Nutrition [CONS] Routine Comment: Consulting Provider: NUTRITION Reason for Dietary Consult: Other Other:: 10 pound weight loss Discharging clinician: Adan Powell - Patient Status Disposition: Home, Self-Care Condition: Good Functional capacity at discharge: independent ambulation Overall status at discharge: patient is progressing back to baseline - Discharge Instructions Follow Up With: Justice Tapia MD [Primary Care Provider] - (Patient need to have Follow up with evp and chief operating officer for her multiple liver lesion with change in size) - Diet and Activity Activity: resume usual activities as tolerated Diet: diabetic diet, low fat, low cholesterol, low salt diet Hospital course: 80-year-old female admitted to the hospital was complaining of abdominal pain associated with her current episode of nausea and vomiting ,Laboratories obtained early this morning demonstrated a white count of 10.6, hemoglobin 12.5 , hematocrit 39.1. Platelet count 201,000. PT 31 with INR 2.8. Electrolytes BUN and creatinine were within normal limits; blood sugar 168. Total bilirubin 0.4, AST 63, ALT 96, alkaline phosphatase 57. A CT of the abdomen and pelvis, which was personally reviewed with [facility], demonstrated evidence of previous cholecystectomy with mild prominence of the intrahepatic and extra hepatic biliary ducts consistent with prior cholecystectomy. Scattered hypoattenuating liver lesions are noted, these appear slightly larger when compared to previous exams (07/19/12). No obvious abnormalities to the pancreas were described, a small hiatal hernia was evident. The proximal small bowel loops were mildly dilated, measuring up to 3.1 cm. Gradual transition to normal caliber is described. The terminal ileum was unremarkable. Extensive pancolonic diverticulosis is noted.There was no free fluid, fluid collections or phlegmon, or obvious lymphadenopathy detected. We will continue to monitor the patient, surgery was consulted. Recommended conservative management, anticoagulant was on hold for possible need for surgery, patient started to pass some gas had a bowel movement had been marketed improvement of her symptoms. By just started advanced as tolerated. Patient had symptom of fluid overload secondary to IV fluid, responded well to diuretics, and quadrant was on hold persurgery request, once stable we resumed anticoagulant, had 1 dose of Lovenox for bridging. Patient is feeling back to her baseline today, counseling patient about deep breathing, counseling about bowel regimen, counseling about constipation and risk of recurrent small bowel obstruction Patiently to follow up with evp and chief operating officer as an outpatient for her liver lesions. - Time Spent with Patient Total time spent providing and/or coordinating discharge services: - Constitutional Vitals: Temp Pulse Resp BP Pulse Ox 98.1 F 74 18 116/58 95 06/04/16 05:38 06/04/16 05:38 06/04/16 07:47 06/04/16 05:38 06/04/16 07:47 General appearance: Present: cooperative, A&O X 3, pleasant, no acute distress, answers questions appropriately - Neck Neck exam general surgery: Present: supple, trachea midline. Absent: lymphadenopathy - Respiratory Respiratory exam: Present: decreased breath sounds, CTAB. Absent: accessory muscle use, rhonchi, wheezes - Cardiovascular Cardiovascular exam: Present: RRR, +S1, +S2. Absent: diastolic murmur, gallop, rubs, systolic murmur - GI/Abdominal GI/Abdominal exam: Present: normal bowel sounds, soft, no peritoneal signs. Absent: distended, tenderness - Skin Skin exam: Present: dry, intact
[2016-06-04] MEDS ORDERED: *HR* Enoxaparin 100 MG/ML SYRINGE SQ STA (09:06)
[2016-06-04] MEDS: Magnesium Oxide 400 MG TABLET PO SCH (09:20)
[2016-06-04] MEDS: Diltiazem CD (24hr) 120 MG CAPSULE PO SCH (09:21)
== END 2016-06-04 13:54 | disposition home or self-care (01) | DRG 390 ==
LOC: 3ANU
PROVIDERS: ADMIT Internal Medicine; ATTEND Internal Medicine

== ENCOUNTER 2016-09-28 02:30 | Inpatient (IN) ==
--- NOTE | 2016-09-28 09:26 | Internal Med History&Physical ---
Date of Encounter: 09/28/16 Time of Encounter: 09:24 Assessment and Plan (1) Chronic respiratory failure with hypoxia Current visit: Yes Status: Acute We will provide oxygen by nasal cannula to maintain saturation above 92%. (2) COPD (chronic obstructive pulmonary disease) Current visit: Yes Status: Acute No evidence of acute exacerbation. Continue with inhaled bronchodilators as needed. Qualifiers: COPD type: chronic bronchitis Chronic bronchitis type: simple Qualified Code(s): J41.0 - Simple chronic bronchitis (3) Coronary artery disease Current visit: No Status: Chronic She has significant history of CAD with 16 stents placed. We will continue with aspirin and Plavix and beta iman. Continue with statin. Consult cardiology. Qualifiers: Coronary Disease-Associated Artery/Lesion type: [place] artery [place] vs. transplanted heart: nondalton heart Associated angina: without angina Qualified Code(s): I25.10 - Atherosclerotic heart disease of nondalton coronary artery without angina pectoris (4) Pacemaker Current visit: No Status: Chronic (5) Anticoagulated on Coumadin Current visit: No Status: Chronic Hold warfarin for now. She was started on IV heparin drip for treatment of non- STEMI. Monitor. Daily INR. (6) Paroxysmal atrial fibrillation Current visit: No Status: Chronic (7) NSTEMI (non-ST elevated myocardial infarction) Current visit: Yes Status: Acute Patient had chest pain which has improved with nitroglycerin, EKG is paced. Troponin at 0.1. Collectively these findings support a diagnosis of non-ST elevation MA. Plan: She was started on IV heparin drip per ACS protocol. She is currently anticoagulated with warfarin and INR was 2.4 this morning. I will hold heparin as she is therapeutically anticoagulated with warfarin and addition of heparin would subject her to unnecessary bleeding risk. We will monitor INR and resume heparin when the INR drops below the therapeutic range. Will obtain echocardiogram. Consult cardiology. Continue Plavix. Nitropaste every 6 hours. Monitor on telemetry. Internal Medicine - H&P: HPI Chief complaint: Chest pain Admitted From: Intrahospital Transfer Plans for Post Hospital Care: Home History of present illness: Ms. Rodas is a 80 year old female with past medical history significant for coronary artery disease status post multiple stent placement, atrial fibrillation on anticoagulation with Coumadin and congestive heart failure who was transferred from an outside hospital where she presented for evaluation of chest pain. Patient states that for the last 2 days she felt weaker than usual and last night around 11 PM she woke up with severe, 7/10 retrosternal chest pain described as pressure associated with shortness of breath and worse with taking deep breaths. She was taken to [facility] where initial workup revealed a troponin of 0.1. She was given aspirin and nitroglycerin and transferred to our hospital for further care. The patient reports that her chest pain right now is 3/10. Review of systems positive for chronic shortness of breath, dyspnea on exertion and lower extremity swelling. The remainder of the temporary review of systems was negative. Past Med Surg Social Fam HX - Past Medical History Medical history: atrial fibrillation, cancer, CHF, COPD, coronary artery disease , diabetes, GERD, hyperlipidemia, hypertension, pulmonary embolus, other Psychiatric history: no psych history - Past Surgical History Surgical History: angioplasty/stent, appendectomy, breast surgery, cataract, cholecystectomy, pacemaker/AICD - Social History Smoking Status: Former smoker Smokeless Tobacco Status: No Alcohol use: none Drug use: none - Family History Mother Living Status: Hx Family Cardiac Disorders: Yes (CHF) Hx Family Endocrine Disorder: Yes (Diabetes) Father History Unknown: Yes Adopted: No Family Member Ethnicity: Non- Living Status: Age at : 87 Cause of : leukemia Hx Family Cardiac Disorders: No Hx Family Respiratory Disorders: Yes Hx Family Cancer: Yes Hx Family GI Disorders: No Hx Family Genitourinary Disorders: No Hx Family Endocrine Disorder: No Hx Family Musculoskeletal Disorders: No Hx Family Neuromuscular Disorders: No Hx Family Neurologic Disorders: No Hx Family HEENT Disorders: No Hx Family Autoimmune Disorders: No Hx Family Reproductive Disorders: No Hx Family Psychosocial Disorders: No Hx Family Medical Disorders: No Sister Living Status: Still Living Hx Family Cancer: Yes (Breast cancer) Internal Medicine - H&P: Meds Albuterol Sulfate [Albuterol Inhaler] 1 puff IH DAILY PRN 11/28/14 [History] Alendronate Sodium 70 mg PO QWEEK 11/28/14 [History] Atorvastatin [Lipitor] 80 mg PO HS 11/28/14 [History] Calcium Carbonate/Vitamin D3 [Calcium 250+D Tablet] 1 each PO BID 11/28/14 [ History] Clopidogrel [Plavix] 75 mg PO DAILY 11/28/14 [History] Ezetimibe [Zetia] 10 mg PO HS 11/28/14 [History] Formoterol Fumarate [Perforomist] 20 mcg IH BID 11/28/14 [History] Furosemide [Lasix] 20 mg PO DAILY 11/28/14 [History] GlipiZIDE [Glucotrol] 5 mg PO BIDWM 11/28/14 [History] Nitroglycerin 0.3 mg TD DAILY 11/28/14 [History] Sotalol HCl [Betapace] 120 mg PO BID 11/28/14 [History] Warfarin [Coumadin] 7 mg PO QMWF 02/23/15 [History] Budesonide 1 ml IH BID 04/28/16 [History] Cholecalciferol (D-3) [Vitamin D] 1,000 unit PO DAILY 04/28/16 [History] Diltiazem CD (24hr) [Cardizem CD] 120 mg PO BID 04/28/16 [History] Isosorbide MONOnitrate (24 HR) [Imdur] 60 mg PO BID 04/28/16 [History] Warfarin [Coumadin] 7.5 mg PO SUTUTHSA 04/28/16 [History] Esomeprazole Magnesium [Nexium] 40 mg PO DAILY 06/01/16 [History] Fish Oil/Dha/Epa [Fish Oil 1,200 mg Fish Oil] 2 each PO DAILY 06/01/16 [History] Cyanocobalamin/FA/Pyridoxine [Folbic Tablet] 1 tab PO DAILY 06/02/16 [History] Enalapril Maleate 10 mg PO BID 06/02/16 [History] Allergies bacitracin [From Neosporin ([id number])] Allergy (Verified 09/28/16 01:13) Blister cetirizine Allergy (Verified 09/28/16 01:13) Confusion ciprofloxacin Allergy (Verified 09/28/16 01:13) Difficulty Breathing codeine Allergy (Verified 09/28/16 01:13) Drowsy diazepam [From Valium] Allergy (Verified 09/28/16 01:13) See Comments pt states it caused her to be in a trance miconazole [From Neosporin AF] Allergy (Verified 09/28/16 01:13) Blister Neomycin Allergy (Verified 09/28/16 01:13) Blister Penicillins Allergy (Verified 09/28/16 01:13) See Comments pt states she feels off balance when walking polymyxin B Allergy (Verified 09/28/16 01:13) Blister promethazine [From Phenergan] Allergy (Verified 09/28/16 01:13) See Comments pt not sure, she states she received it while unconsious and her nurse told her to never take phenergan Sulfa (Sulfonamide Antibiotics) Allergy (Verified 07/15/16 08:41) Confusion All Systems PM: A 10-system review of systems was performed and is negative for pertinent findings except as documented above in the HPI. - Constitutional Vitals: Temp Pulse Resp BP Pulse Ox 97.9 F 75 18 113/63 96 09/28/16 06:38 09/28/16 06:38 09/28/16 06:38 09/28/16 06:38 09/28/16 06:38 General appearance: Present: A&O X 3, no acute distress - Eye Eye exam: Present: PERRL, conjuntiva pink, sclera anicteric Pupils: Present: PERRL - Respiratory Respiratory exam: Present: rales. Absent: accessory muscle use, rhonchi, wheezes - Cardiovascular Cardiovascular exam: Present: RRR, +S1, +S2. Absent: diastolic murmur, gallop, rubs, systolic murmur - GI/Abdominal GI/Abdominal exam: Present: normal bowel sounds, soft, no peritoneal signs. Absent: distended, tenderness - Extremities Exam Extremities exam: Present: pedal edema (Trace), warm, radial pulses palpable and symetrical. Absent: calf tenderness, cyanotic - Neurological Exam Neurological exam: Present: CN II-XII intact, oriented X3, no focal deficits. Absent: pronater drift, facial droop, speech deficit - Skin Skin exam: Present: dry, intact Internal Med - H&P Results - Labs CBC & Chem 7: 09/28/16 08:53 09/28/16 08:53 - EKG Data -: EKG Interpreted by Myself (V paced rhythm at 89 bpm with no intrinsic complexes)
[2016-09-28] MEDS ORDERED: Acetaminophen 325 MG TABLET PO PRN (09:38)
[2016-09-28] MEDS ORDERED: Ondansetron 4 MG/2 ML VIAL IVP PRN (09:38)
[2016-09-28] MEDS ORDERED: Naloxone 0.4 MG/ML INJ IVP PRN (09:38)
[2016-09-28 09:50] LABS: BUN/Creatinine Ratio 32 (6-26); Blood Urea Nitrogen 20 mg/dL (7-20); Carbon Dioxide 33 mEq/L (19-29); Chloride 104 mEq/L (98-109); Glucose 108 mg/dL (70-99); Magnesium 1.6 mg/dL (1.6-2.6); Osmolality,Calculated 301 (280-300); Potassium 3.6 mEq/L (3.5-4.5); Sodium 144 mEq/L (136-145); eGFR For African Americans > 60 (> 60); eGFR For Non-African Americans > 60 (> 60)
[2016-09-28] MEDS ORDERED: *HR* Heparin 5,000 UNIT/ML VIAL IVP PRN ×2 (10:00)
[2016-09-28] MEDS ORDERED: Heparin 25,000 UNIT/500 ML D5W 25,000 UNIT/500 ML MLS IVC SCH (10:00)
[2016-09-28 10:11] LABS: Hematocrit 32.7 % (35.3-44.9); Hemoglobin 10.2 g/dL (11.5-15.4); Mean Corpuscular HGB Conc 31.2 g/dL (31.6-35.5); Mean Corpuscular Hemoglobin 26.6 pg (28.0-33.3); Mean Corpuscular Volume 85.4 fL (83.0-100.0); Platelet Count 229 K/mcL (140-400); Red Blood Count 3.83 M/mcL (3.82-4.97); Red Cell Distribution Width 13.6 % (11.5-14.5)
[2016-09-28 10:17] LABS: INR 2.4
--- NOTE | 2016-09-28 10:48 | Cardiology Consult Note ---
Date of Encounter: 09/28/16 Time of Encounter: 10:46 Assessment and Plan (1) Paroxysmal atrial fibrillation Current Visit: No Status: Chronic Patient has a history of PAF anticoagulated on coumadin. Rhythm is presently paced. She is on sotalol and cardizem. Coumadin will be held in anticipation of [facility]. (2) Elevated troponin Current Visit: Yes Status: Acute Patient has chest pain that is somewhat atypical consisting both of chest tightness which has resolved but ongoing abdominal pain. She is also tender to palpation of the mid epigastric region which has persisted since her admission. However, troponin elevation is concerning for NSTEMI. She has a history of PCI with in-stent restenosis documented on most recent [facility] in 2013. We discussed proceeding with [facility]. The R/B/A of the procedure were discussed with the patient who expressed understanding and verbalized agreement. However, we will wait until her INR level lowers to <2 (presently 2.4). Recommend restarting heparin when INR <2. Continue statin and isosorbide. Discussion w patient/family: The assessment and plan as outlined above was discussed with the patient and/or family members who expressed understanding and agreement. All questions were answered. Thank you for involving us in the care of your patient. Please call with any questions. History of Present Illness Consult date: 09/28/16 Requesting physician: Tayo Bush Consult reason: Chest pain Chief complaint: Chest pain History of present illness: Ms. Rodas is a 80 year old female presenting with chest pain. Patient states that she woke up yesterday feeling weak and just not herself. She decided to lay down for bed at 7:30PM and then woke up suddenly at 11PM with chest tightness located substernally without radiation. She went to [place] [facility] then was transferred to [place]. Her peak troponin was 0.1. There were no acute ECG findings-paced rhythm. At the bedside the patient describes ongoing chest pain that has lessened in severity. She is in no acute distress. Past Med Surg Social Fam HX - Past Medical History Attestation: Yes The following information was validated with the patient. Medical history: atrial fibrillation, cancer, CHF, COPD, coronary artery disease , diabetes, GERD, hyperlipidemia, hypertension, pulmonary embolus, other Psychiatric history: no psych history - Past Surgical History Surgical History: angioplasty/stent, appendectomy, breast surgery, cataract, cholecystectomy, pacemaker/AICD - Social History Smoking Status: Former smoker Smokeless Tobacco Status: No Alcohol use: none Drug use: none - Family History Mother Living Status: Hx Family Cardiac Disorders: Yes (CHF) Hx Family Endocrine Disorder: Yes (Diabetes) Father History Unknown: Yes Adopted: No Family Member Ethnicity: Non- Living Status: Age at : 87 Cause of : leukemia Hx Family Cardiac Disorders: No Hx Family Respiratory Disorders: Yes Hx Family Cancer: Yes Hx Family GI Disorders: No Hx Family Genitourinary Disorders: No Hx Family Endocrine Disorder: No Hx Family Musculoskeletal Disorders: No Hx Family Neuromuscular Disorders: No Hx Family Neurologic Disorders: No Hx Family HEENT Disorders: No Hx Family Autoimmune Disorders: No Hx Family Reproductive Disorders: No Hx Family Psychosocial Disorders: No Hx Family Medical Disorders: No Sister Living Status: Still Living Hx Family Cancer: Yes (Breast cancer) Medications and Allergies Albuterol Sulfate [Albuterol Inhaler] 1 puff IH DAILY PRN 11/28/14 [History] Alendronate Sodium 70 mg PO QWEEK 11/28/14 [History] Atorvastatin [Lipitor] 80 mg PO HS 11/28/14 [History] Calcium Carbonate/Vitamin D3 [Calcium 250+D Tablet] 1 each PO BID 11/28/14 [ History] Clopidogrel [Plavix] 75 mg PO DAILY 11/28/14 [History] Ezetimibe [Zetia] 10 mg PO HS 11/28/14 [History] Formoterol Fumarate [Perforomist] 20 mcg IH BID 11/28/14 [History] Furosemide [Lasix] 20 mg PO DAILY 11/28/14 [History] GlipiZIDE [Glucotrol] 5 mg PO BIDWM 11/28/14 [History] Nitroglycerin 0.3 mg TD DAILY 11/28/14 [History] Sotalol HCl [Betapace] 120 mg PO BID 11/28/14 [History] Warfarin [Coumadin] 7 mg PO QMWF 02/23/15 [History] Budesonide 1 ml IH BID 04/28/16 [History] Cholecalciferol (D-3) [Vitamin D] 1,000 unit PO DAILY 04/28/16 [History] Diltiazem CD (24hr) [Cardizem CD] 120 mg PO BID 04/28/16 [History] Isosorbide MONOnitrate (24 HR) [Imdur] 60 mg PO BID 04/28/16 [History] Warfarin [Coumadin] 7.5 mg PO SUTUTHSA 04/28/16 [History] Esomeprazole Magnesium [Nexium] 40 mg PO DAILY 06/01/16 [History] Fish Oil/Dha/Epa [Fish Oil 1,200 mg Fish Oil] 2 each PO DAILY 06/01/16 [History] Cyanocobalamin/FA/Pyridoxine [Folbic Tablet] 1 tab PO DAILY 06/02/16 [History] Enalapril Maleate 10 mg PO BID 06/02/16 [History] Allergies bacitracin [From Neosporin ([id number])] Allergy (Verified 09/28/16 01:13) Blister cetirizine Allergy (Verified 09/28/16 01:13) Confusion ciprofloxacin Allergy (Verified 09/28/16 01:13) Difficulty Breathing codeine Allergy (Verified 09/28/16 01:13) Drowsy diazepam [From Valium] Allergy (Verified 09/28/16 01:13) See Comments pt states it caused her to be in a trance miconazole [From Neosporin AF] Allergy (Verified 09/28/16 01:13) Blister Neomycin Allergy (Verified 09/28/16 01:13) Blister Penicillins Allergy (Verified 09/28/16 01:13) See Comments pt states she feels off balance when walking polymyxin B Allergy (Verified 09/28/16 01:13) Blister promethazine [From Phenergan] Allergy (Verified 09/28/16 01:13) See Comments pt not sure, she states she received it while unconsious and her nurse told her to never take phenergan Sulfa (Sulfonamide Antibiotics) Allergy (Verified 07/15/16 08:41) Confusion All Systems Review: A 10-system review of systems was performed and is negative for pertinent findings except as documented above in the HPI. - Cardiovascular Cardiovascular: as per HPI Physical Examination Vital signs reviewed. General: Conversant, No Apparent Distress HEENT: Atraumatic, Mucus Membranes Moist Neck: No JVD, Other (right sided carotid bruit) Cardiac: Reg Rate and Rhythm, No Murmur, Other Lungs: Normal Breath Sounds, No Wheeze, Rales, Rhonchi Neuro: Alert and responsive, No focal deficits noted Abdomen: Soft, Other (tender to palpation in mid epigastrum with normal bowel sounds) Extremities: No Clubbing, Normal Pulses, Other (no significant LE edema) Results 09/28/16 08:53 09/28/16 08:53 Lab Results 09/28/16 09/28/16 09/28/16 08:53 08:53 08:53 WBC Hgb Hct Plt Count INR APTT 57.3 H Sodium 144 Potassium 3.6 Chloride 104 Carbon Dioxide 33 H BUN 20 Creatinine 0.63 Glucose 108 H Calcium 9.0 Magnesium 1.6 Troponin I 0.06 H* 09/28/16 09/28/16 08:53 08:53 WBC 6.1 Hgb 10.2 L Hct 32.7 L Plt Count 229 INR 2.4 APTT Sodium Potassium Chloride Carbon Dioxide BUN Creatinine Glucose Calcium Magnesium Troponin I - Imaging and Cardiology Cardiac cath: report reviewed (2013) - EKG Interpretation EKG results cardiology: personally reviewed (paced rhythm, no acute findings) Consult Discharge Plan - Plan Referrals: Justice Tapia MD [Primary Care Provider] -
[2016-09-28] MEDS: Pantoprazole 40 MG VIAL IVP SCH (10:50)
[2016-09-28] MEDS: Diltiazem CD (24hr) 120 MG CAPSULE PO SCH ×2 (10:50→20:55)
[2016-09-28] MEDS ORDERED: GI Cocktail 40 ML EACH PO ONE (11:19)
[2016-09-28] MEDS: Beclomethasone 80mcg MDI IH SCH ×2 (11:22→22:27)
[2016-09-28] MEDS: Nitroglycerin 1 INCH/GM PACKET TP SCH (12:09)
[2016-09-28] MEDS: Aspirin 81 MG TAB.CHEW PO SCH (12:09)
[2016-09-28 17:08] LABS: INR 2.4; Prothrombin Time 26.2 Seconds (9.4-12.1)
[2016-09-28] MEDS: Isosorbide MONOnitrate (24 HR) 30 MG TAB.ER.24H PO SCH (20:55)
[2016-09-28] MEDS: Formoterol Fumarate [Perforomist] 20 MCG IH SCH (20:56)
[2016-09-29] MEDS: Nitroglycerin 1 INCH/GM PACKET TP SCH ×2 (05:57→11:56)
[2016-09-29 06:14] LABS: Basophils % 0.2 %; Eosinophils # 0.1 K/mcL (0.0-0.6); Eosinophils % 1.7 %; Hemoglobin 9.7 g/dL (11.5-15.4); Immature Granulocytes % 0.2 % (0-4); Lymphocytes # 1.6 K/mcL (0.6-4.6); Lymphocytes % 25.6 %; Mean Corpuscular HGB Conc 30.3 g/dL (31.6-35.5); Mean Corpuscular Volume 85.8 fL (83.0-100.0); Mean Platelet Volume 10.7 fL (9.4-12.4); Monocytes # 0.7 K/mcL (0.0-1.3); Monocytes % 10.9 %; Neutrophils # 3.7 K/mcL (1.6-8.9); Platelet Count 206 K/mcL (140-400); Red Blood Count 3.73 M/mcL (3.82-4.97); Red Cell Distribution Width 13.5 % (11.5-14.5); Segmented Neutrophils % 61.4 %
[2016-09-29 06:20] LABS: INR 2.1
[2016-09-29 06:33] LABS: BUN/Creatinine Ratio 23 (6-26); Blood Urea Nitrogen 14 mg/dL (7-20); Calcium 8.5 mg/dL (8.6-10.8); Carbon Dioxide 36 mEq/L (19-29); Chloride 104 mEq/L (98-109); Chol/HDL Ratio 2.9 (0-4.9); Cholesterol 121 mg/dL (< 200); Glucose 108 mg/dL (70-99); HDL Cholesterol 42 mg/dL (40-59); LDL Cholesterol,Calculated 53 mg/dL (0-99); Magnesium 1.6 mg/dL (1.6-2.6); Osmolality,Calculated 301 (280-300); Potassium 3.8 mEq/L (3.5-4.5); Sodium 145 mEq/L (136-145); Triglycerides 132 mg/dL (< 150); eGFR For African Americans > 60 (> 60); eGFR For Non-African Americans > 60 (> 60)
[2016-09-29] MEDS: Formoterol Fumarate [Perforomist] 20 MCG IH SCH (06:57)
[2016-09-29] MEDS: Pantoprazole 40 MG VIAL IVP SCH ×2 (08:08→08:13)
[2016-09-29] MEDS: Aspirin 81 MG TAB.CHEW PO SCH (08:08)
[2016-09-29] MEDS: Isosorbide MONOnitrate (24 HR) 30 MG TAB.ER.24H PO SCH ×2 (08:09→21:15)
[2016-09-29] MEDS: Diltiazem CD (24hr) 120 MG CAPSULE PO SCH ×2 (08:09→21:15)
--- NOTE | 2016-09-29 10:52 | Cardiology Progress Note ---
Date of Encounter: 09/29/16 Time of Encounter: 10:50 Assessment and Plan (1) Paroxysmal atrial fibrillation Current Visit: No Status: Chronic Patient has a history of PAF anticoagulated on coumadin. Rhythm is presently paced. She is on sotalol and cardizem. Coumadin is being held in anticipation of [facility]. (2) Elevated troponin Current Visit: Yes Status: Acute Patient had episodes of chest tightness overnight that she feels is different in quality than her stomach discomfort/nausea that improved with GI cocktail. Her troponin peaked at 0.10 which is concerning for NSTEMI in setting of known CAD. We have held her coumadin in anticipation of [facility] but INR still >2. We discussed proceeding with [facility] tomorrow. The patient has agreed. Continue aspirin, plavix, statin and imdur. Recommend using SL NTG prn. Will not add beta iman since she is already on sotalol for antiarrhythmic therapy. Discussion w patient/family: The assessment and plan as outlined above was discussed with the patient and/or family members who expressed understanding and agreement. All questions were answered. Thank you for involving us in the care of your patient. Please call with any questions. Subjective Principal diagnosis: Elevated troponin, chest pain Interval history: Patient reports having a few episodes of chest tightness when walking to the bathroom overnight. She did also report improvement in nausea and stomach discomfort from GI cocktail given yesterday. Objective Vital Signs, Last 4 Hours Temp Pulse Resp BP 09/29/16 08:10 98.0 F 73 18 134/76 General: Conversant, No Apparent Distress HEENT: Mucus Membranes Moist Neck: No JVD, Normal carotid pulses Cardiac: Reg Rate and Rhythm, Normal S1 and S2, No Murmur Lungs: Normal Breath Sounds, No Wheeze, Rales, Rhonchi Neuro: Alert and responsive, No focal deficits noted Abdomen: Soft, Other (tender to palpation in midepigatrum) Results 09/29/16 05:27 09/29/16 05:27 Lab Results 09/28/16 09/28/16 09/28/16 16:28 16:28 20:39 WBC Hgb Hct Plt Count INR 2.4 Sodium Potassium Chloride Carbon Dioxide BUN Creatinine Glucose Calcium Magnesium Troponin I 0.03 0.03 09/29/16 09/29/16 09/29/16 05:27 05:27 05:27 WBC 6.1 Hgb 9.7 L Hct 32.0 L Plt Count 206 INR 2.1 Sodium 145 Potassium 3.8 Chloride 104 Carbon Dioxide 36 H BUN 14 Creatinine 0.60 Glucose 108 H Calcium 8.5 L Magnesium 1.6 Troponin I - Imaging and Cardiology Echo: report reviewed - EKG Interpretation EKG results cardiology: other (24h telemetry demonstrates average heart rate 76 bpm, mainly paced, no concerning dysrhythmia) Consult Discharge Plan - Plan Referrals: Justice Tapia MD [Primary Care Provider] - 10/07/16 2:30 pm (please follow up as schedule....)
[2016-09-29] MEDS: Albuterol 2.5 MG/3 ML NEBULIZER IH SCH ×2 (11:14→17:35)
[2016-09-29] MEDS: Beclomethasone 80mcg MDI IH SCH ×2 (11:14→22:04)
--- NOTE | 2016-09-29 15:58 | Internal Med Progress Note ---
Date of Encounter: 09/29/16 Time of Encounter: 10:00 - Assessment and plan (1) Diabetes mellitus Current Visit: No Status: Chronic Assessment and plan: On by mouth medication at home. Will place patient on sliding scale. Qualifiers: Diabetes mellitus type: type 2 Diabetes mellitus complication status: with unspecified complications Diabetes mellitus terminal operations manager insulin use: without terminal operations manager use Qualified Code(s): E11.8 - Type 2 diabetes mellitus with unspecified complications (2) Coronary artery disease Current Visit: No Status: Chronic Assessment and plan: Patient has multiple stent previously. Elevated troponin. Cardiology consult appreciated. Plan for [facility], waiting for INR < 2.0. Continue medical treatment with aspirin, Plavix, nitrates, beta iman, and atorvastatin. Qualifiers: Coronary Disease-Associated Artery/Lesion type: [place] artery [place] vs. transplanted heart: [place] heart Associated angina: without angina Qualified Code(s): I25.10 - Atherosclerotic heart disease of [place] coronary artery without angina pectoris (3) Paroxysmal atrial fibrillation Current Visit: No Status: Chronic Assessment and plan: Rate is controlled. On Coumadin which is on hold now for [facility]. (4) COPD (chronic obstructive pulmonary disease) Current Visit: No Status: Chronic Qualifiers: COPD type: emphysema Emphysema type: unspecified Qualified Code(s): J43.9 - Emphysema, unspecified (5) NSTEMI (non-ST elevated myocardial infarction) Current Visit: Yes Status: Acute Assessment and plan: Plan for [facility]. Continue medical treatment, may restart heparin drip if INR < 2.0 (6) DVT prophylaxis Current Visit: Yes Status: Acute Assessment and plan: Patient is on Coumadin now - Time Spent With Patient 25 - 35 minutes - Subjective Interval history: Patient is a 80-year-old female admitted for chest pain. Patient has history of CAD S/P stent. She has elevated troponin, which is considered NSTEMI. Past medical history is significant for A. fib on Coumadin, CAD, DM, CHF. Patient was seen and examined. Feels comfortable, no more chest pain or shortness of breath. Coumadin is on hold. LHC is planned as INR is getting lower than 2.0. Continue medical treatment for CAD and close monitoring. - Constitutional Vitals: Temp Pulse Resp BP Pulse Ox 97.9 F 66 16 138/68 97 09/29/16 11:28 09/29/16 11:28 09/29/16 11:28 09/29/16 11:28 09/29/16 11:28 General appearance: Present: A&O X 3, no acute distress, answers questions appropriately - Head Head exam: Present: atraumatic, normocephalic - Eye Eye exam: Present: PERRL, conjuntiva pink, sclera anicteric Pupils: Present: PERRL - Neck Neck exam general surgery: Present: supple, trachea midline. Absent: lymphadenopathy - Respiratory Respiratory exam: Present: CTAB. Absent: accessory muscle use, rales, rhonchi, wheezes - Cardiovascular Cardiovascular exam: Present: RRR, +S1, +S2. Absent: diastolic murmur, gallop, rubs, systolic murmur - GI/Abdominal GI/Abdominal exam: Present: normal bowel sounds, soft, no peritoneal signs. Absent: distended, tenderness - Extremities Exam Extremities exam: Present: warm, radial pulses palpable and symetrical. Absent : calf tenderness, cyanotic, pedal edema - Neurological Exam Neurological exam: Present: CN II-XII intact, oriented X3, no focal deficits. Absent: pronater drift, facial droop, speech deficit - Skin Skin exam: Present: dry, intact Internal Medicine: Result - Labs CBC & Chem 7: 09/29/16 05:27 09/29/16 05:27 Labs: Short CBC 09/29/16 Range/Units 05:27 WBC 6.1 (4.3-11.1) K/mcL Hgb 9.7 L (11.5-15.4) g/dL Hct 32.0 L (35.3-44.9) % Plt Count 206 (140-400) K/mcL Neutrophils # 3.7 (1.6-8.9) K/mcL BMP 09/29/16 05:27 Sodium 145 Potassium 3.8 Chloride 104 Carbon Dioxide 36 H BUN 14 Creatinine 0.60 Glucose 108 H Calcium 8.5 L Cardiac Enzymes 09/28/16 09/28/16 Range/Units 16:28 20:39 Troponin I 0.03 0.03 (0-0.03) ng/mL - ABG Interpretation ABG results: PT/INR, D-dimer PT 23.0 Seconds (9.4-12.1) H 09/29/16 05:27 Consult Discharge Plan - Plan Referrals: Justice Tapia MD [Primary Care Provider] - 10/07/16 2:30 pm (please follow up as schedule....)
[2016-09-29] MEDS ORDERED: *HR* Dextrose 50 % in Water (Syg) 50 ML SYRINGE IVP PRN (16:04)
[2016-09-29] MEDS ORDERED: D5% in Water 1,000 ML IVC PRN (16:04)
[2016-09-29] MEDS ORDERED: Dextrose Gel 15 GM PO PRN ×2 (16:04)
[2016-09-29] MEDS: Insulin LISPRO 300 UNITS/3 ML VIAL SQ SCH ×2 (17:17→21:15)
[2016-09-30] MEDS: Nitroglycerin 1 INCH/GM PACKET TP SCH ×2 (04:54→11:39)
[2016-09-30 05:07] LABS: Basophils % 0.2 %; Eosinophils # 0.1 K/mcL (0.0-0.6); Eosinophils % 1.3 %; Hematocrit 32.2 % (35.3-44.9); Immature Granulocytes % 0.5 % (0-4); Lymphocytes # 1.5 K/mcL (0.6-4.6); Lymphocytes % 24.6 %; Mean Corpuscular HGB Conc 31.1 g/dL (31.6-35.5); Mean Corpuscular Hemoglobin 26.6 pg (28.0-33.3); Mean Corpuscular Volume 85.6 fL (83.0-100.0); Mean Platelet Volume 10.2 fL (9.4-12.4); Monocytes # 0.6 K/mcL (0.0-1.3); Monocytes % 9.8 %; Neutrophils # 3.8 K/mcL (1.6-8.9); Platelet Count 216 K/mcL (140-400); Red Blood Count 3.76 M/mcL (3.82-4.97); Red Cell Distribution Width 13.5 % (11.5-14.5); Segmented Neutrophils % 63.6 %
[2016-09-30 05:11] LABS: INR 1.4; Prothrombin Time 14.9 Seconds (9.4-12.1)
[2016-09-30 05:26] LABS: BUN/Creatinine Ratio 21 (6-26); Blood Urea Nitrogen 13 mg/dL (7-20); Calcium 8.7 mg/dL (8.6-10.8); Carbon Dioxide 35 mEq/L (19-29); Chloride 102 mEq/L (98-109); Glucose 118 mg/dL (70-99); Osmolality,Calculated 295 (280-300); Potassium 3.9 mEq/L (3.5-4.5); Sodium 142 mEq/L (136-145); eGFR For African Americans > 60 (> 60); eGFR For Non-African Americans > 60 (> 60)
[2016-09-30] MEDS ORDERED: *HR* Heparin 5,000 UNIT/ML VIAL IVP ONE (07:21)
[2016-09-30] MEDS ORDERED: *HR* Heparin 5,000 UNIT/ML VIAL IVP PRN ×2 (07:21)
[2016-09-30] MEDS: Insulin LISPRO 300 UNITS/3 ML VIAL SQ SCH ×4 (07:58→23:14)
[2016-09-30] MEDS: Isosorbide MONOnitrate (24 HR) 30 MG TAB.ER.24H PO SCH ×2 (08:06→22:44)
[2016-09-30] MEDS: Diltiazem CD (24hr) 120 MG CAPSULE PO SCH ×2 (08:06→22:45)
[2016-09-30] MEDS: Aspirin 81 MG TAB.CHEW PO SCH (08:06)
[2016-09-30] MEDS: Heparin 25,000 UNIT/500 ML D5W 25,000 UNIT/500 ML MLS IVC SCH (08:07)
[2016-09-30] MEDS: Beclomethasone 80mcg MDI IH SCH ×2 (08:35→21:32)
[2016-09-30] MEDS: Albuterol 2.5 MG/3 ML NEBULIZER IH SCH ×4 (08:43→21:33)
[2016-09-30 09:14] LABS: Hemoglobin 10.8 g/dL (11.5-15.4); Mean Corpuscular HGB Conc 30.9 g/dL (31.6-35.5); Mean Corpuscular Hemoglobin 26.5 pg (28.0-33.3); Mean Platelet Volume 10.7 fL (9.4-12.4); Platelet Count 230 K/mcL (140-400); Red Blood Count 4.07 M/mcL (3.82-4.97); Red Cell Distribution Width 13.3 % (11.5-14.5)
--- NOTE | 2016-09-30 09:29 | Event Note ---
Date of Encounter: 09/30/16 Time of Encounter: 09:25 - Cardiology Event Note Patient's INR is 1.4 today. Renal function is normal. She will proceed with [facility] for elevated troponin, chest pain and history of CAD-NSTEMI. She did describe episodes of chest tightness overnight. The R/B/A of the procedure were again discussed. Patient expressed understanding and agreement to proceed.
--- NOTE | 2016-09-30 09:37 | Pre-Sedation Evaluation ---
Pre-sedation evaluation - Pre-sedation checklist Date of procedure: 09/30/16 Procedure: [facility] Recent Vitals: Last Vital Signs Temp 97.5 F L 09/30/16 07:17 Pulse 74 09/30/16 07:17 Resp 16 09/30/16 07:17 BP 149/73 09/30/16 07:17 Pulse Ox 97 09/30/16 08:23 H&P (including ROS) documented in medical record: Yes Previous reaction to sedatives/anesthetics: No Dietary Status: NPO after Midnight Dentition: No loose teeth or bridges ASA Classification *see protocol: CLASS II-Mild systemic disease Plan of Care: Pt appropriate candidate for procedure/moderate/conscious sedation , Risks/benefits of procedure/sedation discussed w/ patient/family
[2016-09-30] MEDS: 0.9 % Sodium Chloride 1,000 ML IVC SCH (11:33)
[2016-09-30] MEDS ORDERED: *HR* Heparin 10,000 UNIT/10 ML VIAL ONE (11:51)
[2016-09-30] MEDS ORDERED: 0.9 % Sodium Chloride 1,000 ML ONE (11:51)
[2016-09-30] MEDS ORDERED: Nitroglycerin 1,000 MCG/10 ML VIAL IV ONE (11:51)
[2016-09-30] MEDS ORDERED: Verapamil 5 MG/2 ML VIAL ONE (11:51)
[2016-09-30] MEDS ORDERED: Heparin 1,000 UNITS/500 mL NS 500 ML ONE (11:51)
[2016-09-30] MEDS ORDERED: *HR* Midazolam HCl 2 MG/2 ML VIAL ONE (13:14)
[2016-09-30] MEDS ORDERED: *HR* FentaNYL (PF) 100 MCG/2 ML VIAL ONE (13:14)
--- NOTE | 2016-09-30 14:04 | Invasive Diagnostic Lab Proc ---
Name: Antoinette Rodas Date of Study: 09/30/2016 Date: 1935 Ht: 59.8in Medical Record#: [id number] Age: 80 Wt: 151.68lb Gender: Female BSA: 1.66 Order #: [id number] BMI: 29.78 Physicians Procedure Physician: Timothy Mckeon MD, FACC Referring MD: Referring MD: Staff Name Position Time In Malia Lopez RT (R) Monitor 01:16 PM Jeaneth Yoo RN Manager Traffic 01:16 PM [facility] Sc[facility] 01:16 PM Indications Indication Non-Stemi Procedures Performed Procedure L HRT ARTERY/VENTRICLE ANGIO Pre-Procedure Checklist Informed consent is complete signed and on chart. H\\T\\P is on chart. ID band is on and ID verified with patient. Patient NPO for procedure The procedure was described for the patient and questions were answered. ECG is on chart. Plan of Care Patient will tolerate the procedure without complications. Adequate level of comfort will be maintained. Hemodynamics will remain stable Patient will recover from procedure without complications. Respiratory function will be maintained. Cardiac rhythm will remain stable. Patient temperature will be maintained. Patient and/or family have verbalized understanding of the procedure. Patient Education Chief Complaint/Reason for Test: Cardiac Cath Developmental Category: Geriatric (65+ years) Developmentally Appropriate for Age: Yes Learning Barriers: None Education Needs: Procedure Education Method: Verbal Information Taught: Cardiac Cath Educational Evaluation: Able to repeat information Intravenous Access Time IV Size Location DC'd Fluid/Drip Rate Units RN 09:44 AM 22g 1" Patent On Arrival Rt Hand 0.9NaCl Allergies Bacitracin Cipro Codeine Valium Miconazole PCN Neomycin Polymyxin Phenergan Sulfa Vital Signs Time BP (mmHg) HR (bpm) O2 Sat. RR (bpm) LOC / % 5 = Fully awake and oriented or at pre-proc level 01:17 PM / % 4 = Oriented but drowsy 01:17 PM / % 4 = Oriented but drowsy 01:32 PM / % 4 = Oriented but drowsy Procedural Medications Time Medication Dose Units Method Given By 01:18 PM Oxygen 2 L/min nasal cannula Jeaneth Yoo RN 01:18 PM Versed 2 mg Intravenous Jeaneth Yoo RN 01:18 PM Fentanyl 25 mcg Intravenous Jeaneth Yoo RN 01:33 PM Lidocaine 2% 19 ml Subcutaneous Timothy Mckeon MD, [facility] Patsy Score Preprocedure Postprocedure Activity 2- Moves 4 extremities sustained head lift Activity 2- Moves 4 extremities sustained head lift Circulation 2- SBP +/= 20 points of pre-anesthetic level Circulation 2- SBP +/= 20 points of pre-anesthetic level Consciousness 2- Awake and alert oriented x 3 Consciousness 2- Awake and alert oriented x 3 O2 Saturation 2- Able to maintain O2 satruation of 92% on room air O2 Saturation 2- Able to maintain O2 satruation of 92% on room air Respiratory 2- Able to deep breathe and cough well Respiratory 2- Able to deep breathe and cough well Total Score 10 Total Score 10 Contrast Agent: Isovue Diagnostic Contrast: 57 ml Total Contrast: 57 ml Fluoro Dose: 148 mGy Procedure Log Time Note Enter By 01:16 PM 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 Bilateral groin prepped with Chloraprep by Elisa Hurley RT (R), safety strap applied then patient was draped. Skin intact. [email or web address] :17 PM Physican paged/called 13:17. [email or web address] 01:17 PM Physician arrived 13:17 [email or web address] :17 PM Cholo and keith completed 3 :17 PM Sign in performed according to hospital policy. [email or web address] 01:17 PM Procedure start 13:17 [email or web address] :[email or web address] PM Time: 13:17 Patient comfortable and pain free: Yes [email or web address] :17 PM Time: 13:17LOC: 4 = Oriented but drowsy [email or web address] 01:18 PM Time: 13:18 Oxygen on at 2 L/min per nasal cannula by Jeaneth Yoo RN [email or web address] 01:18 PM Time: 13:18 Versed 2 mg Intravenous Given by Jeaneth Yoo RN [email or web address] 01:18 PM Time: 13:18 Fentanyl 25 mcg Intravenous Given by Jeaneth Yoo RN [email or web address] 01:32 PM Time out performed according to hospital policy [email or web address] 01:32 PM Time: 13:17LOC: 4 = Oriented but drowsy [email or web address] 01:33 PM Time: 13:33 19 ml Lidocaine 2% to right groin Subcutaneous Given by Timothy Mckeon MD, [facility] [email or web address] 01:34 PM 0.035 150cm VSI Maxwell-Torque wire [id number] [email or web address] 01:35 PM Wire removed [email or web address] 01:35 PM Manual presurre held by Dr. Mckeon. [email or web address] 01:38 PM Access obtained by percutaneous puncture. 5Fr 10cm Terumo [place] sheath placed in right Femoral artery. [id number] [email or web address] 01:38 PM 5Fr FL 4 catheter inserted over the wire DN [email or web address] 01:39 PM LCA angiography performed in multiple views. [email or web address] 01:41 PM Catheter removed [email or web address] 01:41 PM 5Fr FR 4 catheter inserted over the wire DNC [email or web address] 01:41 PM Lesion found in Mid Circumflex. Pre Stenosis: 50 Pre LEIF Flow: 3: Complete and Brisk Flow/Perfusion [email or web address] 01:41 PM Lesion found in Distal Circumflex. Pre Stenosis: 60 Pre LEIF Flow: [email or web address] 01:43 PM Catheter removed [email or web address] 01:43 PM RCA angiography performed in multiple views. [email or web address] 01:43 PM Coronary Dominance: Co-dominant [email or web address] 01:44 PM Catheter removed [email or web address] 01:44 PM 5Fr Pigtail catheter inserted over the wire DN [email or web address] 01:44 PM Lesion found in Mid RCA. Pre Stenosis: 30 Pre LEIF Flow: 3: Complete and Brisk Flow/Perfusion [email or web address] 01:44 PM Lesion found in Distal RCA. Pre Stenosis: 40 Pre LEIF Flow: 3: Complete and Brisk Flow/Perfusion [email or web address] 01:46 PM Catheter selectively placed in left ventricle [email or web address] 01:47 PM Bolus angiogram of left Ventricle complete: 8 ml/sec for a total of 24 mls [email or web address] 01:47 PM Catheter removed [email or web address] 01:47 PM Bolus angiogram of right Femoral complete: 4 ml/sec for a total of 7 mls [email or web address] 01:48 PM Time: 13:32LOC: 4 = Oriented but drowsy [email or web address] 01:48 PM Procedure completed at 13:48 [email or web address] 01:48 PM Sign out completed: Radiation Dose 147.82 mGy Fluoro Time: 2.2 Isovue 370 - 56.7ml contrast ml given by Timothy Mckeon MD, FACC. Complications: NoneCardiac Rehab Consult needed: NoConfirmed administered medications: Yes [email or web address] 01:49 PM Arterial sheath pulled, Mynx closure device used and was Successful S/N. [email or web address] 01:49 PM Post ECG Paced [email or web address] 01:49 PM Post Blood Pressure 154/66 [email or web address] 01:49 PM Information taught Cardiac Cath and Mynx [email or web address] 01:49 PM Education needs Procedure, Plan of Care, and Disease Process [email or web address] 01:49 PM Learning barriers :None [email or web address] 01:50 PM Education Methods Verbal [email or web address] 01:51 PM Site status No bleeding/hematoma - Rt Groin as reported by Sites, Elisa RT (R) at 13:51 [email or web address] 01:51 PM Opsite applied [email or web address] 01:51 PM Delay to floor No [email or web address] 01:51 PM Family placed in consult room. [email or web address] 01:51 PM Complications: None [email or web address] 01:51 PM Fluoro Time: 2.2 [email or web address] 01:51 PM Isovue 370 - 200ml contrast 56.7 ml given by Timothy Mckeon MD, FACC. [email or web address] 01:51 PM Radiation Dose 147.82 mGy [email or web address] 01:58 PM Report given to Janie JORGE Pt taken to 2A Room #24. 13:58 [email or web address] 01:58 PM Patient out of room: 13:58 [email or web address] Complications Complication None None Hemodynamics Pressures Site Systolic/A Wave Diastolic/V Wave Mean AO 134 64 93 AO 129 76 100 AO 127 63 91 LV 139 3 13 LV 132 23 54 Post Procedure Information Blood Pressure: 154/66 mmHg Rhythm: Paced Post procedural instructions were given Closure Device Time Device Success/Fail 09/30/2016 1:51:00 PM MynxGrip Yes Site Checks Time Location Status Staff Sheath In? Note 01:51 PM Rt Groin No bleeding/hematoma Sites, Elisa RT (R) Pulses Time Site Pre-Procedure Post-Procedure Note 09/30/2016 9:44:00 AM Bilateral DP 2+ 2+ 09/30/2016 9:44:00 AM Bilateral radial 2+ Updated by Malia Lopez RT(R) on 09/30/2016 2:00:20 PM electronically signed on 09/30/2016 2:00:57 PM with status of Final
--- NOTE | 2016-09-30 15:10 | Invasive Diagnostic Lab ---
Name: Antoinette Rodas Date of Study: 09/30/2016 Date: 1935 Ht: 152.0 cm /59.8 in Medical Record#: [id number] Age: 80 Wt: 68.8 kg / 151.68 lb Account/Order#: [id number] Gender: Female BSA: 1.66 Order #: [id number] Fluoro Dose: 148 mGy BMI: 29.78 Procedure Physician: Timothy Mckeon MD, FACC Referring MD: Referring MD: Procedures Performed: LEFT HEART CATH Indications: Non-Stemi Impressions: There is mild three vessel coronary artery disease. The left ventricle is normal and has normal contractility EF 60% Patent LAD, LCx, and OM stents Recommendations: Optimal medical therapy of patient's disease. Aggressive risk factor modification. History/Risk Factors: a fib cancer COPD CAD GERD PE PPM/AICD Diabetes Hypertension Dyslipidemia CHF Family History of CAD Chronic Lung Disease Previous PCI Procedure Access obtained in the right Femoral artery by percutaneous puncture Complications: None, None Contrast: Isovue 57ml Closure Device: MynxGrip Hemodynamics: Pressures Site Systolic/ A Wave Diastolic/ V Wave End Diastolic/ Mean HR AO 134 64 93 AO 129 76 100 AO 127 63 91 LV 139 3 13 LV 132 23 54 LV Ventriculography Ejection Method: LV Gram Ejection Fraction: 60% Wall Motion: [place] Anterobasal Normal Anterolateral Normal Apical: Normal Inferoapical Normal Inferobasal Normal Coronary Dominance: Co-dominant Lesion Findings/Interventions * Left Main Coronary Artery The LMCA is angiographically free of disease. * Left Anterior Descending The LAD has mid 30% stenosis. Patent proximal stent. The 1st Diagonal is angiographically free of disease. * Circumflex There is a 50% stenosis in the Mid Circumflex - instent restenosis. The lesion has a LEIF flow of 3. OM patent stent There is a 50-60% stenosis in the Distal Circumflex. * Right Coronary Artery There is a 30% stenosis in the Mid RCA. The lesion has a LEIF flow of 3. There is a 40% stenosis in the Distal RCA. The lesion has a LEIF flow of 3. Updated by RT Collins(R) on 09/30/2016 1:59:22 PM Timothy Mckeon MD, FACC electronically signed on 09/30/2016 3:05:49 PM with status of Final
--- NOTE | 2016-09-30 15:55 | Event Note ---
Date of Encounter: 09/30/16 Time of Encounter: 15:52 - Cardiology Event Note C did not reveal any new cardiac findings to explain patient's symptoms. Recommend continuing cardiac meds (asa, statin, nitrate, sotalol for AF). Recommend restarting coumadin for anticoagulation of AFIB. Consider treatment for dyspepsia. She's been having mid epigastric discomfort that improved with a GI cocktail that may be contributing to "chest tightness." We will sign off. Recommend outpatient follow up.
[2016-09-30] MEDS ORDERED: *HR* Warfarin 7.5 MG TABLET PO ONE (16:30)
--- NOTE | 2016-09-30 16:34 | Internal Med Progress Note ---
Date of Encounter: 09/30/16 Time of Encounter: 10:00 - Assessment and plan (1) Diabetes mellitus Current Visit: No Status: Chronic Assessment and plan: On by mouth medication at home. Will place patient on sliding scale. Qualifiers: Diabetes mellitus type: type 2 Diabetes mellitus complication status: with unspecified complications Diabetes mellitus automobile sales consultant insulin use: without automobile sales consultant use Qualified Code(s): E11.8 - Type 2 diabetes mellitus with unspecified complications (2) Coronary artery disease Current Visit: No Status: Chronic Assessment and plan: Patient has multiple stent previously. Elevated troponin. Cardiology consult appreciated. LHC done, no positive finding. Continue medical treatment with aspirin, Plavix, nitrates, beta iman, and atorvastatin. Qualifiers: Coronary Disease-Associated Artery/Lesion type: [place] artery [place] vs. transplanted heart: [place] heart Associated angina: without angina Qualified Code(s): I25.10 - Atherosclerotic heart disease of [place] coronary artery without angina pectoris (3) Paroxysmal atrial fibrillation Current Visit: No Status: Chronic Assessment and plan: Rate is controlled. On Coumadin now, INR subtherapeutic, bridged by heparin drip. (4) COPD (chronic obstructive pulmonary disease) Current Visit: No Status: Chronic Assessment and plan: Stable, cont home med. Qualifiers: COPD type: emphysema Emphysema type: unspecified Qualified Code(s): J43.9 - Emphysema, unspecified (5) NSTEMI (non-ST elevated myocardial infarction) Current Visit: Yes Status: Acute Assessment and plan: LHC find no stenosis to explain pt's symptoms. Three stes of troponin 0.06/0.03/ 0.03 (6) DVT prophylaxis Current Visit: Yes Status: Acute Assessment and plan: Patient is on Coumadin/heparin drip now - Subjective Interval history: Patient is a 80-year-old female admitted for chest pain. Patient has history of CAD S/P stent. She has elevated troponin, which is considered NSTEMI. Past medical history is significant for A. fib on Coumadin, CAD, DM, CHF. Patient was seen and examined. Feels comfortable, no more chest pain or shortness of breath. LHC done today, no positive finding. Will cont medical management for CAD. Cont heparin drip and coumadin until INR therapeutic. - Constitutional Vitals: Temp Pulse Resp BP Pulse Ox 97.4 F L 67 18 151/74 98 09/30/16 15:59 09/30/16 15:59 09/30/16 15:59 09/30/16 15:59 09/30/16 15:59 General appearance: Present: A&O X 3, no acute distress, answers questions appropriately - Head Head exam: Present: atraumatic, normocephalic - Eye Eye exam: Present: PERRL, conjuntiva pink, sclera anicteric Pupils: Present: PERRL - Neck Neck exam general surgery: Present: supple, trachea midline. Absent: lymphadenopathy - Respiratory Respiratory exam: Present: CTAB. Absent: accessory muscle use, rales, rhonchi, wheezes - Cardiovascular Cardiovascular exam: Present: RRR, +S1, +S2. Absent: diastolic murmur, gallop, rubs, systolic murmur - GI/Abdominal GI/Abdominal exam: Present: normal bowel sounds, soft, no peritoneal signs. Absent: distended, tenderness - Extremities Exam Extremities exam: Present: warm, radial pulses palpable and symetrical. Absent : calf tenderness, cyanotic, pedal edema - Neurological Exam Neurological exam: Present: CN II-XII intact, oriented X3, no focal deficits. Absent: pronater drift, facial droop, speech deficit - Skin Skin exam: Present: dry, intact Internal Medicine: Result - Labs CBC & Chem 7: 09/30/16 08:16 09/30/16 04:44 Labs: Short CBC 09/30/16 09/30/16 Range/Units 04:44 08:16 WBC 6.0 6.1 (4.3-11.1) K/mcL Hgb 10.0 L 10.8 L (11.5-15.4) g/dL Hct 32.2 L 35.0 L (35.3-44.9) % Plt Count 216 230 (140-400) K/mcL Neutrophils # 3.8 (1.6-8.9) K/mcL BMP 09/30/16 04:44 Sodium 142 Potassium 3.9 Chloride 102 Carbon Dioxide 35 H BUN 13 Creatinine 0.63 Glucose 118 H Calcium 8.7 - ABG Interpretation ABG results: PT/INR, D-dimer PT 14.9 Seconds (9.4-12.1) H 09/30/16 04:44 Consult Discharge Plan - Plan Referrals: Justice Tapia MD [Primary Care Provider] - 10/07/16 2:30 pm (please follow up as schedule....)
[2016-09-30] MEDS ORDERED: Warfarin perPT PO PRN (18:00)
[2016-09-30] MEDS ORDERED: Simethicone 80 MG TAB.CHEW PO PRN (19:28)
[2016-10-01 03:41] LABS: Basophils % 0.3 %; Eosinophils # 0.1 K/mcL (0.0-0.6); Eosinophils % 1.9 %; Hematocrit 32.6 % (35.3-44.9); Hemoglobin 10.1 g/dL (11.5-15.4); Immature Granulocytes % 0.5 % (0-4); Lymphocytes # 1.5 K/mcL (0.6-4.6); Lymphocytes % 23.2 %; Mean Corpuscular Hemoglobin 26.6 pg (28.0-33.3); Mean Platelet Volume 10.3 fL (9.4-12.4); Monocytes # 0.7 K/mcL (0.0-1.3); Monocytes % 11.1 %; Platelet Count 208 K/mcL (140-400); Red Blood Count 3.79 M/mcL (3.82-4.97); Red Cell Distribution Width 13.5 % (11.5-14.5)
[2016-10-01 03:42] LABS: INR 1.2; Prothrombin Time 12.7 Seconds (9.4-12.1)
[2016-10-01 03:50] LABS: BUN/Creatinine Ratio 21 (6-26); Blood Urea Nitrogen 13 mg/dL (7-20); Calcium 8.7 mg/dL (8.6-10.8); Carbon Dioxide 33 mEq/L (19-29); Chloride 103 mEq/L (98-109); Glucose 95 mg/dL (70-99); Osmolality,Calculated 294 (280-300); Potassium 3.9 mEq/L (3.5-4.5); Sodium 142 mEq/L (136-145); eGFR For African Americans > 60 (> 60); eGFR For Non-African Americans > 60 (> 60)
[2016-10-01] MEDS: Albuterol 2.5 MG/3 ML NEBULIZER IH SCH ×2 (04:15→09:43)
[2016-10-01] MEDS: 0.9 % Sodium Chloride 1,000 ML IVC SCH (05:09)
[2016-10-01] MEDS: Insulin LISPRO 300 UNITS/3 ML VIAL SQ SCH ×2 (07:54→11:40)
[2016-10-01] MEDS: Diltiazem CD (24hr) 120 MG CAPSULE PO SCH (08:00)
[2016-10-01] MEDS: Aspirin 81 MG TAB.CHEW PO SCH (08:00)
[2016-10-01] MEDS: Isosorbide MONOnitrate (24 HR) 30 MG TAB.ER.24H PO SCH (08:00)
[2016-10-01] MEDS: Nitroglycerin 1 INCH/GM PACKET TP SCH (08:01)
[2016-10-01] MEDS: Heparin 25,000 UNIT/500 ML D5W 25,000 UNIT/500 ML MLS IVC SCH (08:01)
[2016-10-01] MEDS: Beclomethasone 80mcg MDI IH SCH (09:43)
[2016-10-01 10:42] VITALS: BP 128/70
[2016-10-01] MEDS ORDERED: *HR* Enoxaparin 80 MG/0.8 ML SYRINGE SQ SCH (11:00)
--- NOTE | 2016-10-01 13:35 | Discharge Summary ---
Date of Encounter: 10/01/16 Time of Encounter: 11:00 - Discharge Diagnosis (1) Diabetes mellitus Priority: Secondary Status: Chronic Qualifiers: Diabetes mellitus type: type 2 Diabetes mellitus complication status: with unspecified complications Diabetes mellitus supervisor intermediates insulin use: without supervisor intermediates use Qualified Code(s): E11.8 - Type 2 diabetes mellitus with unspecified complications (2) Coronary artery disease Priority: Secondary Status: Chronic Qualifiers: Coronary Disease-Associated Artery/Lesion type: [place] artery [place] vs. transplanted heart: [place] heart Associated angina: without angina Qualified Code(s): I25.10 - Atherosclerotic heart disease of [place] coronary artery without angina pectoris (3) Paroxysmal atrial fibrillation Priority: Secondary Status: Chronic (4) COPD (chronic obstructive pulmonary disease) Priority: Secondary Status: Chronic Qualifiers: COPD type: emphysema Emphysema type: unspecified Qualified Code(s): J43.9 - Emphysema, unspecified (5) NSTEMI (non-ST elevated myocardial infarction) Priority: Primary Status: Acute (6) DVT prophylaxis Priority: Secondary Status: Acute - Discharge Medications Prescriptions: Enoxaparin [Lovenox] 70 mg SQ Q12H #4 syringe Home Medications: Albuterol Sulfate [Albuterol Inhaler] 1 puff IH DAILY PRN 11/28/14 [History] Alendronate Sodium 70 mg PO QWEEK 11/28/14 [History] Atorvastatin [Lipitor] 80 mg PO HS 11/28/14 [History] Calcium Carbonate/Vitamin D3 [Calcium 250+D Tablet] 1 each PO BID 11/28/14 [ History] Clopidogrel [Plavix] 75 mg PO DAILY 11/28/14 [History] Ezetimibe [Zetia] 10 mg PO HS 11/28/14 [History] Formoterol Fumarate [Perforomist] 20 mcg IH BID 11/28/14 [History] Furosemide [Lasix] 20 mg PO DAILY 11/28/14 [History] GlipiZIDE [Glucotrol] 5 mg PO BIDWM 11/28/14 [History] Nitroglycerin 0.3 mg TD DAILY 11/28/14 [History] Sotalol HCl [Betapace] 120 mg PO BID 11/28/14 [History] Warfarin [Coumadin] 7 mg PO QMWF 02/23/15 [History] Budesonide 1 ml IH BID 04/28/16 [History] Cholecalciferol (D-3) [Vitamin D] 1,000 unit PO DAILY 04/28/16 [History] Diltiazem CD (24hr) [Cardizem CD] 120 mg PO BID 04/28/16 [History] Isosorbide MONOnitrate (24 HR) [Imdur] 60 mg PO BID 04/28/16 [History] Warfarin [Coumadin] 7.5 mg PO SUTUTHSA 04/28/16 [History] Esomeprazole Magnesium [Nexium] 40 mg PO DAILY 06/01/16 [History] Fish Oil/Dha/Epa [Fish Oil 1,200 mg Fish Oil] 2 each PO DAILY 06/01/16 [History] Cyanocobalamin/FA/Pyridoxine [Folbic Tablet] 1 tab PO DAILY 06/02/16 [History] Enalapril Maleate 10 mg PO BID 06/02/16 [History] Enoxaparin [Lovenox] 70 mg SQ Q12H #4 syringe 10/01/16 [Rx] Allergies/Adverse Reactions: Allergies bacitracin [From Neosporin ([id number])] Allergy (Verified 09/28/16 01:13) Blister cetirizine Allergy (Verified 09/28/16 01:13) Confusion ciprofloxacin Allergy (Verified 09/28/16 01:13) Difficulty Breathing codeine Allergy (Verified 09/28/16 01:13) Drowsy diazepam [From Valium] Allergy (Verified 09/28/16 01:13) See Comments pt states it caused her to be in a trance miconazole [From Neosporin AF] Allergy (Verified 09/28/16 01:13) Blister Neomycin Allergy (Verified 09/28/16 01:13) Blister Penicillins Allergy (Verified 09/28/16 01:13) See Comments pt states she feels off balance when walking polymyxin B Allergy (Verified 09/28/16 01:13) Blister promethazine [From Phenergan] Allergy (Verified 09/28/16 01:13) See Comments pt not sure, she states she received it while unconsious and her nurse told her to never take phenergan Sulfa (Sulfonamide Antibiotics) Allergy (Verified 07/15/16 08:41) Confusion Procedures/tests Complete & Pending: Procedures Performed prior 72 hours Category Date Time Status Left Heart Cath [CL Cardiac Catheterization] [CL] [employer] 09/29/16 11:00 Completed Routine Date of admission: 09/28/16 09:38 Primary care physician: Justice Tapia MD Consults: 09/28/16 09:40 Consult to Physician [CONS] Routine Consulting Provider: Vinny Celeste Reason for Consult: Non-ST elevation myocardial infarction Time Notified: 09:41 Call Completed: Yes Discharging clinician: Giancarlo Valente Anticipated date of discharge: 10/01/16 - Patient Status Disposition: Home, Self-Care Condition: Good Functional capacity at discharge: independent ambulation Overall status at discharge: patient is back to baseline - Discharge Instructions Follow Up With: Justice Tapia MD [Primary Care Provider] - 10/07/16 2:30 pm (please follow up as schedule....) - Diet and Activity Activity: increase activity as tolerated Diet: diabetic diet Interval History: Ms. Rodas is a 80 year old female with past medical history significant for coronary artery disease status post multiple stent placement, atrial fibrillation on anticoagulation with Coumadin and congestive heart failure who was transferred from an outside hospital where she presented for evaluation of chest pain. Patient states that for the last 2 days she felt weaker than usual and last night around 11 PM she woke up with severe, 7/10 retrosternal chest pain described as pressure associated with shortness of breath and worse with taking deep breaths. She was taken to [facility] where initial workup revealed a troponin of 0.1. She was given aspirin and nitroglycerin and transferred to our hospital for further care. The patient reports that her chest pain right now is 3/10. Hospital course: Ms. Rodas is a 80 year old female admitted for chest pain with elevated troponin. Consider NSTEMI because patient have several stent placed previously. Cardiology consult was called and saw patient. LHC has been done, no intervention is necessary. After LHC, patient had no further chest pain. Patient is on Coumadin for A. fib, which is interrupted because of LHC. Today INR is 1.2. Patient will resume Coumadin and bridged by Lovenox and discharged home. I saw and examined the patient. Patient is awake alert, oriented 3. Denies chest pain or shortness of breath. Vitals are stable. Patient said she has used to Lovenox subcutaneously previously and now how to inject it by herself. Patient will receive 1 dose of Lovenox today and prescribe 4 dose of Lovenox, continue Coumadin and follow up at the anticoagulation clinic on Wednesday. - Time Spent with Patient Total time spent providing and/or coordinating discharge services: 25 min Less than 30 minutes - Constitutional Vitals: Temp Pulse Resp BP Pulse Ox 97.5 F L 63 14 128/70 98 10/01/16 10:40 10/01/16 10:40 10/01/16 10:40 10/01/16 10:40 10/01/16 10:40 General appearance: Present: A&O X 3, no acute distress, answers questions appropriately - Head Head exam: Present: atraumatic, normocephalic - Eye Eye exam: Present: PERRL, conjuntiva pink, sclera anicteric Pupils: Present: PERRL - Neck Neck exam general surgery: Present: supple, trachea midline. Absent: lymphadenopathy - Respiratory Respiratory exam: Present: CTAB. Absent: accessory muscle use, rales, rhonchi, wheezes - Cardiovascular Cardiovascular exam: Present: RRR, +S1, +S2. Absent: diastolic murmur, gallop, rubs, systolic murmur - GI/Abdominal GI/Abdominal exam: Present: normal bowel sounds, soft, no peritoneal signs. Absent: distended, tenderness - Extremities Exam Extremities exam: Present: warm, radial pulses palpable and symetrical. Absent : calf tenderness, cyanotic, pedal edema - Neurological Exam Neurological exam: Present: CN II-XII intact, oriented X3, no focal deficits. Absent: pronater drift, facial droop, speech deficit - Skin Skin exam: Present: dry, intact
[2016-10-01] MEDS ORDERED: *HR* Warfarin 7.5 MG TABLET PO ONE (18:00)
== END 2016-10-01 15:00 | disposition home or self-care (01) | DRG 281 ==
LOC: 2ANU → SUATTDRO 09:38
PROVIDERS: ADMIT Hospitalist; ATTEND Internal Medicine

== ENCOUNTER 2017-08-24 09:04 | Observation (INO) ==
[2017-08-24] MEDS ORDERED: Ondansetron 4 MG/2 ML VIAL IVP PRN (13:00)
--- NOTE | 2017-08-24 13:28 | Internal Med History&Physical ---
<Bree Gentile - Last Filed: 08/24/17 17:25> Date of Encounter: 08/24/17 Internal Medicine - H&P: HPI History of present illness: Ms. Rodas is a 81 year old female Internal Medicine - H&P: Meds Albuterol Sulfate [Albuterol Inhaler] 1 puff IH DAILY PRN 11/28/14 [History] Alendronate Sodium 70 mg PO QWEEK 11/28/14 [History] Atorvastatin [Lipitor] 80 mg PO HS 11/28/14 [History] Calcium Carbonate/Vitamin D3 [Calcium 250+D Tablet] 1 each PO BID 11/28/14 [ History] Clopidogrel [Plavix] 75 mg PO DAILY 11/28/14 [History] Ezetimibe [Zetia] 10 mg PO HS 11/28/14 [History] Formoterol Fumarate [Perforomist] 20 mcg IH BID 11/28/14 [History] Furosemide [Lasix] 20 mg PO DAILY 11/28/14 [History] GlipiZIDE [Glucotrol] 5 mg PO BIDWM 11/28/14 [History] Nitroglycerin 0.3 mg TD DAILY 11/28/14 [History] Sotalol HCl [Betapace] 120 mg PO BID 11/28/14 [History] Warfarin [Coumadin] 7 mg PO DAILY 02/23/15 [History] Cholecalciferol (D-3) [Vitamin D] 1,000 unit PO DAILY 04/28/16 [History] Diltiazem CD (24hr) [Cardizem CD] 120 mg PO BID 04/28/16 [History] Isosorbide MONOnitrate (24 HR) [Imdur] 60 mg PO BID 04/28/16 [History] Esomeprazole Magnesium [Nexium] 40 mg PO DAILY 06/01/16 [History] Fish Oil/Dha/Epa [Fish Oil 1,200 mg Fish Oil] 2 each PO DAILY 06/01/16 [History] Cyanocobalamin/FA/Pyridoxine [Folbic Tablet] 1 tab PO DAILY 06/02/16 [History] Enalapril Maleate 10 mg PO BID 06/02/16 [History] Vit A/Vit C/Vit E/Zinc/Copper [Preservision Areds Tablet] 1 each PO DAILY [History] Budesonide Neb [Pulmicort Neb] 0.25 mg IH BID 08/24/17 [History] Ferrous Sulfate [Iron] 325 mg PO DAILY 08/24/17 [History] Loratadine [Allergy Relief] 10 mg PO DAILY 08/24/17 [History] Tiotropium [Spiriva] 18 mcg IH DAILY 08/24/17 [History] 3 Allergy/AdvReac Type Severity Reaction Status Date / Time bacitracin Allergy Blister Verified 08/24/17 05:53 [From Neosporin ([id number])] cetirizine Allergy Confusion Verified 08/24/17 05:53 ciprofloxacin Allergy Difficulty Verified 08/24/17 05:53 Breathing codeine Allergy Drowsy Verified 08/24/17 05:53 diazepam [From Valium] Allergy See Verified 08/24/17 05:53 Comments miconazole Allergy Blister Verified 08/24/17 05:53 [From Neosporin AF] Neomycin Allergy Blister Verified 08/24/17 05:53 Penicillins Allergy See Verified 08/24/17 05:53 Comments polymyxin B Allergy Blister Verified 08/24/17 05:53 promethazine [From Phenergan] Allergy See Verified 08/24/17 05:53 Comments Sulfa (Sulfonamide Allergy Confusion Verified 08/24/17 05:53 Antibiotics) All Systems PM: A 10-system review of systems was performed and is negative for pertinent findings except as documented above in the HPI. - Constitutional Vitals: Temp Pulse Resp BP Pulse Ox 98.1 F 88 16 150/70 97 08/24/17 16:09 08/24/17 16:09 08/24/17 16:09 08/24/17 16:09 08/24/17 16:09 Internal Med - H&P Results - Labs Labs: Cardiac Enzymes 08/24/17 Range/Units 13:22 Troponin I < 0.03 (< 0.04) ng/mL - Attending Attestation examined the pt. reviewed the note. not convinced much about pneumonia at this time but continue zithromax. needs the cardiac work up. cash sales audit clerk on board. - Time Spent With Patient Total time spent is greater than 50% in coordination of care (as documented) at patient's floor/unit and/or counseling patient: <Jeaneth Sung - Last Filed: 08/25/17 10:52> Date of Encounter: 08/24/17 Time of Encounter: 13:17 Internal Medicine - H&P: HPI Admitted From: Home Plans for Post Hospital Care: Home History of present illness: Ms. Rodas is a 81 year old female who presented to [place] with complaints of chest pain that began at 11 PM last evening. 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 Patient sees Dr. Melo You cash sales audit clerk and states she had a stress test done 3-4 years ago. She indicated when she is stressed it has to be chemical. EKG showed paced rhythm rate of 104. First pacer placed in 1997, patient currently on third pacer, no defibrillator. Reports chest pain began midsternal radiation to bilateral shoulders and back. She indicated she has a history of angina and began Zetia many years ago that has controlled this. She reports the pain was sharp and deep and constricting, states she was slightly short of breath during episodes. She denied having history of [place]. Patient has indicated when she lies down at night she has chest pain, almost nightly she indicated she is supposed to have an appointment with Dr. Stratton due to her severe GERD. Consult to Dr. Peres for cardiology. Patient has nitro paste on and will continue every 6 hours. The [facility] CXR showed bibasilar actelectasis and/or pneumonia. Azithromycin and rocephin started. Past Med Surg Social Fam HX - Past Medical History Medical history: atrial fibrillation, cancer, CHF, COPD, coronary artery disease , diabetes, GERD, hyperlipidemia, hypertension, pulmonary embolus, other Psychiatric history: no psych history - Past Surgical History Surgical History: angioplasty/stent, appendectomy, breast surgery, cataract, cholecystectomy, pacemaker/AICD - Social History Smoking Status: Former smoker Smokeless Tobacco Status: No Alcohol use: none Drug use: none - Family History Mother Living Status: Hx Family Cardiac Disorders: Yes (CHF) Hx Family Endocrine Disorder: Yes (Diabetes) Father Adopted: No Family Member Ethnicity: Non- Living Status: Hx Family Cardiac Disorders: No Hx Family Respiratory Disorders: Yes Hx Family Cancer: Yes Hx Family GI Disorders: No Hx Family Endocrine Disorder: No Hx Family Neuromuscular Disorders: No Hx Family Neurologic Disorders: No Hx Family HEENT Disorders: No Hx Family Autoimmune Disorders: No Sister Living Status: Still Living Hx Family Cancer: Yes (Breast cancer) All Systems PM: A 10-system review of systems was performed and is negative for pertinent findings except as documented above in the HPI. - Constitutional Constitutional: no chills, no fever(s), no night sweats - EENT Eyes: no change in vision, no discharge, no pain, no photophobia Ears: no ear discharge, no ear pain, no tinnitus Nose, mouth and throat: no dysphagia, no nasal discharge, no neck pain, no sore throat - Cardiovascular Cardiovascular ROS IM: dyspnea (With chest pain), no chest pain, no diaphoresis , no lightheadedness, no palpitations, no syncope - Respiratory Respiratory: no cough, no dyspnea, no wheezing, no excessive phlegm production - Gastrointestinal Gastrointestinal: bloating, excessive flatus, heartburn, nausea (With chest pain ), no diarrhea, no hematemesis, no hematochezia, no melena, no vomiting - Genitourinary Genitourinary: no change in urinary stream, no dysuria, no flank pain, no hematuria - Musculoskeletal Musculoskeletal ROS IM: no numbness, no tingling - Integumentary Integumentary IM: no rash, no unusual bruising - Neurological Neurological ROS: no confusion, no convulsions, no focal weakness, no numbness, no tingling, no tremor(s) - Hematologic/Lymphatic Hematologic/Lymphatic: no easy bruising - Constitutional Vitals: Temp Pulse Resp BP Pulse Ox 97.8 F 77 16 128/65 98 08/24/17 11:02 08/24/17 11:02 08/24/17 11:02 08/24/17 11:02 08/24/17 11:02 General appearance: Present: A&O X 3, answers questions appropriately - Head Head exam: Present: atraumatic, normocephalic - Eye Eye exam: Present: PERRL, conjuntiva pink, sclera anicteric Pupils: Present: PERRL - Neck Neck exam general surgery: Present: supple, trachea midline. Absent: lymphadenopathy - Respiratory Respiratory exam: Present: decreased breath sounds (Home O2 2 L daily), CTAB. Absent: accessory muscle use, rales, rhonchi, wheezes - Cardiovascular Cardiovascular exam: Present: RRR, +S1, +S2. Absent: diastolic murmur, gallop, rubs, systolic murmur - GI/Abdominal GI/Abdominal exam: Present: distended, normal bowel sounds, soft, tenderness, no peritoneal signs - Extremities Exam Extremities exam: Present: warm, radial pulses palpable and symmetrical. Absent : calf tenderness, cyanotic, pedal edema - Neurological Exam Neurological exam: Present: CN II-XII intact, oriented X3, no focal deficits. Absent: pronater drift, facial droop, speech deficit - Skin Skin exam: Present: dry, intact Internal Med - H&P Results - Labs CBC & Chem 7: 08/25/17 02:01 08/25/17 02:01 - Assessment and plan (1) Pneumonia Current Visit: Yes Status: Acute Assessment and plan: Patient chest x-ray showed bibasilar atelectasis versus pneumonia. We will treat with azithromycin and Rocephin. Qualifiers: Pneumonia type: due to unspecified organism Laterality: bilateral Lung location: unspecified part of lung Qualified Code(s): J18.9 - Pneumonia, unspecified organism (2) COPD (chronic obstructive pulmonary disease) Current Visit: No Status: Acute Assessment and plan: Patient uses home O2 2 L daily. We will continue home meds Qualifiers: COPD type: chronic bronchitis Chronic bronchitis type: simple Qualified Code(s): J41.0 - Simple chronic bronchitis (3) Pacemaker Current Visit: No Status: Chronic Assessment and plan: EKG showed paced rhythm with rate of 104. Patient baseline rhythm is atrial fibrillation patient currently on warfarin and Plavix. (4) Diabetes mellitus Current Visit: No Status: Chronic Assessment and plan: We will continue home meds Accu-Cheks before meals at bedtime. Blood sugar 126 on admission. Patient only takes glyburide no insulin. 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
[2017-08-24] MEDS ORDERED: Azithromycin 500 MG in D5% in Water 250 ML IVPB SCH (15:00)
--- NOTE | 2017-08-24 15:27 | Cardiology Consult Note ---
Date of Encounter: 08/24/17 Time of Encounter: 15:25 Assessment and Plan (1) Chest pain Current Visit: Yes Status: Acute Negative LHC a year ago with preserved EF and atypical chest pain. Negative CE' s on admission. Will consider chemical stress test prior to discharge Qualifiers: Chest pain type: unspecified Qualified Code(s): R07.9 - Chest pain, unspecified Discussion w patient/family: The assessment and plan as outlined above was discussed with the patient and/or family members who expressed understanding and agreement. All questions were answered. Thank you for involving us in the care of your patient. Please call with any questions. History of Present Illness Consult date: 08/24/17 Consult reason: Chest Pain Chief complaint: Chest pain History of present illness: Ms. Rodas is a 81 year old female with extensive hx of CAD presents with atypical chest pain. Patient with a LHC 09/2016 unremarkable with patent stents and preserved EF. Patient also has GERD likely culprit as her pain starts while laying in bed relieved with NTG. Past Med Surg Social Fam HX - Past Medical History Medical history: atrial fibrillation, cancer, CHF, COPD, coronary artery disease , diabetes, GERD, hyperlipidemia, hypertension, pulmonary embolus, other Psychiatric history: no psych history - Past Surgical History Surgical History: angioplasty/stent, appendectomy, breast surgery, cataract, cholecystectomy, pacemaker/AICD - Social History Smoking Status: Former smoker Smokeless Tobacco Status: No Alcohol use: none Drug use: none - Family History Mother Living Status: Hx Family Cardiac Disorders: Yes (CHF) Hx Family Endocrine Disorder: Yes (Diabetes) Father Adopted: No Family Member Ethnicity: Non- Living Status: Hx Family Cardiac Disorders: No Hx Family Respiratory Disorders: Yes Hx Family Cancer: Yes Hx Family GI Disorders: No Hx Family Endocrine Disorder: No Hx Family Neuromuscular Disorders: No Hx Family Neurologic Disorders: No Hx Family HEENT Disorders: No Hx Family Autoimmune Disorders: No Sister Living Status: Still Living Hx Family Cancer: Yes (Breast cancer) Medications and Allergies Albuterol Sulfate [Albuterol Inhaler] 1 puff IH DAILY PRN 11/28/14 [History] Alendronate Sodium 70 mg PO QWEEK 11/28/14 [History] Atorvastatin [Lipitor] 80 mg PO HS 11/28/14 [History] Calcium Carbonate/Vitamin D3 [Calcium 250+D Tablet] 1 each PO BID 11/28/14 [ History] Clopidogrel [Plavix] 75 mg PO DAILY 11/28/14 [History] Ezetimibe [Zetia] 10 mg PO HS 11/28/14 [History] Formoterol Fumarate [Perforomist] 20 mcg IH BID 11/28/14 [History] Furosemide [Lasix] 20 mg PO DAILY 11/28/14 [History] GlipiZIDE [Glucotrol] 5 mg PO BIDWM 11/28/14 [History] Nitroglycerin 0.3 mg TD DAILY 11/28/14 [History] Sotalol HCl [Betapace] 120 mg PO BID 11/28/14 [History] Warfarin [Coumadin] 7 mg PO DAILY 02/23/15 [History] Budesonide 1 ml IH BID 04/28/16 [History] Cholecalciferol (D-3) [Vitamin D] 1,000 unit PO DAILY 04/28/16 [History] Diltiazem CD (24hr) [Cardizem CD] 120 mg PO BID 04/28/16 [History] Isosorbide MONOnitrate (24 HR) [Imdur] 60 mg PO BID 04/28/16 [History] Esomeprazole Magnesium [Nexium] 40 mg PO DAILY 06/01/16 [History] Fish Oil/Dha/Epa [Fish Oil 1,200 mg Fish Oil] 2 each PO DAILY 06/01/16 [History] Cyanocobalamin/FA/Pyridoxine [Folbic Tablet] 1 tab PO DAILY 06/02/16 [History] Enalapril Maleate 10 mg PO BID 06/02/16 [History] Vit A/Vit C/Vit E/Zinc/Copper [Preservision Areds Tablet] 1 each PO DAILY [History] Miconazole/Skin Cleanser No.17 [Monistat 3 Combo Pack] 1 each VG ONCE #1 kit 02/27 [Rx] 3 Allergy/AdvReac Type Severity Reaction Status Date / Time bacitracin Allergy Blister Verified 08/24/17 05:53 [From Neosporin ([id number])] cetirizine Allergy Confusion Verified 08/24/17 05:53 ciprofloxacin Allergy Difficulty Verified 08/24/17 05:53 Breathing codeine Allergy Drowsy Verified 08/24/17 05:53 diazepam [From Valium] Allergy See Verified 08/24/17 05:53 Comments miconazole Allergy Blister Verified 08/24/17 05:53 [From Neosporin AF] Neomycin Allergy Blister Verified 08/24/17 05:53 Penicillins Allergy See Verified 08/24/17 05:53 Comments polymyxin B Allergy Blister Verified 08/24/17 05:53 promethazine [From Phenergan] Allergy See Verified 08/24/17 05:53 Comments Sulfa (Sulfonamide Allergy Confusion Verified 08/24/17 05:53 Antibiotics) All Systems Review: The remainder of the systems were reviewed and are negative Physical Examination General: Conversant, No Apparent Distress HEENT: Atraumatic, Normocephaly, Mucus Membranes Moist Neck: No JVD, Normal carotid pulses Cardiac: Reg Rate and Rhythm, Normal S1 and S2, No Murmur Lungs: Normal Breath Sounds, No Wheeze, Rales, Rhonchi Neuro: Alert and responsive, No focal deficits noted Abdomen: Soft, Non-Tender Skin: No rashes noted on visualized skin Musculoskeletal: No Chest Wall Tenderness Extremities: No Clubbing, No Cyanosis, No Edema, Normal Pulses Results Lab Results 08/24/17 13:22 Troponin I < 0.03 Consult Discharge Plan - Plan Referrals: Justice Tapia MD [Primary Care Provider] -
[2017-08-24] MEDS: Azithromycin 500 MG in D5% in Water 250 ML IVPB SCH ×2 (16:40→18:13)
[2017-08-24] MEDS ORDERED: NON-FORMULARY MEDICATION 1 EACH EACH (Alendronate Sodium [Alendronate Sodium] 70 MG) PO SCH (22:00)
[2017-08-24] MEDS ORDERED: Lisinopril 20 MG TABLET PO SCH (23:15)
[2017-08-25] MEDS: Diltiazem CD (24hr) 120 MG CAPSULE PO SCH ×2 (00:39→09:17)
[2017-08-25] MEDS: Isosorbide MONOnitrate (24 HR) 30 MG TAB.ER.24H PO SCH ×2 (00:40→09:18)
[2017-08-25 02:37] LABS: Basophils % 0.3 %; Eosinophils # 0.2 K/mcL (0.0-0.6); Eosinophils % 2.2 %; Hematocrit 28.5 % (35.3-44.9); Hemoglobin 8.5 g/dL (11.5-15.4); Immature Granulocytes % 0.3 % (0-4); Lymphocytes # 2.2 K/mcL (0.6-4.6); Lymphocytes % 30.4 %; Mean Corpuscular HGB Conc 29.8 g/dL (31.6-35.5); Mean Corpuscular Hemoglobin 23.4 pg (28.0-33.3); Mean Corpuscular Volume 78.3 fL (83.0-100.0); Mean Platelet Volume 10.2 fL (9.4-12.4); Monocytes # 0.7 K/mcL (0.0-1.3); Monocytes % 9.4 %; Neutrophils # 4.1 K/mcL (1.6-8.9); Nucleated Red Blood Cells 0.4 /100 WBC (0); Platelet Count 262 K/mcL (140-400); Red Blood Count 3.64 M/mcL (3.82-4.97); Red Cell Distribution Width 16.8 % (11.5-14.5); Segmented Neutrophils % 57.4 %
[2017-08-25 02:49] LABS: INR 1.5; Prothrombin Time 16.2 Seconds (9.4-12.1)
[2017-08-25 03:00] LABS: Alanine Aminotransferase 19 Units/L (7-52); Albumin 3.6 g/dL (3.5-5.7); Alkaline Phosphatase 49 Units/L (34-104); Aspartate Amino Transferase 16 Units/L (13-39); BUN/Creatinine Ratio 32 (6-26); Bilirubin,Total 0.3 mg/dL (0.3-1.0); Blood Urea Nitrogen 17 mg/dL (8-23); Calcium 9.1 mg/dL (8.6-10.3); Carbon Dioxide 34 mEq/L (23-29); Chloride 106 mEq/L (98-107); Globulin 1.8 g/dL (2.4-3.5); Glucose 105 mg/dL (70-105); Magnesium 1.7 mg/dL (1.6-2.6); Osmolality,Calculated 304 (280-300); Potassium 4.2 mEq/L (3.5-5.1); Sodium 146 mEq/L (136-145); Total Protein 5.4 g/dL (6.4-8.9); eGFR For African Americans > 60 (> 60); eGFR For Non-African Americans > 60 (> 60)
[2017-08-25] MEDS ORDERED: Regadenoson 0.4 MG/5 ML SYRINGE IVP ONE (05:27)
[2017-08-25] MEDS ORDERED: Nitroglycerin 1 INCH/GM PACKET TP SCH (06:00)
[2017-08-25] MEDS ORDERED: Budesonide Neb 0.25 MG/2 ML ONE (07:46)
[2017-08-25] MEDS ORDERED: *HR* GlipiZIDE 5 MG TABLET PO SCH (08:00)
[2017-08-25] MEDS ORDERED: Aspirin 81 MG TAB.CHEW PO SCH (09:00)
[2017-08-25] MEDS ORDERED: Lisinopril 20 MG TABLET PO SCH (09:00)
[2017-08-25] MEDS ORDERED: Loratadine 10 MG TABLET PO SCH (09:00)
[2017-08-25] MEDS ORDERED: Nitroglycerin 0.3 MG PATCH.TD24 TD SCH (09:00)
[2017-08-25] MEDS ORDERED: FISH OIL PO SCH (09:00)
[2017-08-25] MEDS ORDERED: Multivit/Ca/Min/Fe/FA 1 TAB TABLET PO SCH (09:00)
[2017-08-25] MEDS ORDERED: EPA PO SCH (09:00)
[2017-08-25] MEDS ORDERED: Tiotropium 18 MCG inhalation IH SCH ×2 (09:00→10:00)
[2017-08-25] MEDS ORDERED: Cholecalciferol (D-3) 1,000 UNIT TABLET PO SCH (09:00)
[2017-08-25] MEDS ORDERED: Levofloxacin 500 MG/100 ML 500 MG/100 ML BAG IVPB SCH (09:00)
[2017-08-25] MEDS ORDERED: cefTRIAXone 1,000 MG in Water for inj. (sterile) 20 ML 10 ML IVP SCH (09:00)
[2017-08-25] MEDS ORDERED: DHA PO SCH (09:00)
[2017-08-25] MEDS ORDERED: Levofloxacin 250 MG/50 ML 250 MG/50 ML BAG IVPB SCH (09:00)
[2017-08-25] MEDS ORDERED: (Formoterol Fumarate [Perforomist] 20 MCG) IH SCH (09:00)
[2017-08-25] MEDS ORDERED: Furosemide 20 MG TABLET PO SCH (09:00)
[2017-08-25] MEDS ORDERED: Vitamin B Complex/Vit C/Vit E 1 EACH TABLET PO SCH (09:00)
[2017-08-25] MEDS ORDERED: Dextrose Gel 15 GM/37.5 ML TUBE PO PRN ×2 (09:18)
[2017-08-25] MEDS ORDERED: *HR* Dextrose 50 % in Water (Syg) 50 ML SYRINGE IVP PRN (09:18)
[2017-08-25] MEDS ORDERED: D5% in Water 1,000 ML IVC PRN (09:18)
[2017-08-25] MEDS ORDERED: Budesonide Neb 0.25 MG/2 ML IH SCH (10:00)
[2017-08-25] MEDS: Albuterol 2.5 MG/3 ML NEBULIZER IH SCH ×2 (10:45→15:16)
[2017-08-25] MEDS: Insulin LISPRO 300 UNITS/3 ML VIAL SQ SCH ×2 (12:23→17:03)
[2017-08-25] MEDS: Doxycycline 100 MG in 0.9 % Sodium Chloride Mini Bag 100 ML IVPB SCH ×2 (12:24→17:04)
--- NOTE | 2017-08-25 14:45 | Event Note ---
Date of Encounter: 08/25/17 Time of Encounter: 14:42 - Cardiology Event Note Stress test today was negative for ischemia or infarct. Device interrogated due to being tachycardic this morning. On Sotalol 120mg BID for PAF. Device interrogation revealed pacemaker mediated tachycardia and device visitor services representative recommends adjusting PVARP settings. Device rep is coming this afternoon to adjust. Once that is completed, okay to d/c home from a cardiac standpoint. Will coordinate outpt follow-up with Cardiology/EP in 2-3 weeks. Cardiology signing off. Reconsult PRN.
[2017-08-25 16:18] VITALS: BP 135/75
--- NOTE | 2017-08-25 17:09 | Discharge Summary ---
- NOTES TO OUTPATIENT PROVIDER Notes to Outpatient Provider: f/u with PCP in one week. Please go for BMP in 2 days on Wednesday Orders not resulted at time of discharge: Pending orders 08/25/17 06:00 NM nataly perf SPECT multi [NM] Routine ECG 12 lead ECG [ECG] AM 0600 08/26/17 04:00 Complete Blood Count [HEME] AM 0400 Comprehensive Metabolic Panel AM 0400 PT/INR [Prothrombin Time INR] [COAG] AM 04008/27/17 04:00 Complete Blood Count [HEME] AM 0400 Comprehensive Metabolic Panel AM 0400 PT/INR [Prothrombin Time INR] [COAG] AM 0400 08/28/17 04:00 PT/INR [Prothrombin Time INR] [COAG] AM 0400 Date of Encounter: 08/25/17 Time of Encounter: 17:07 - Discharge Diagnosis (1) Chest pain Priority: Primary Status: Acute Qualifiers: Chest pain type: unspecified Qualified Code(s): R07.9 - Chest pain, unspecified (2) Mild bibasilar atelectasis Priority: Primary Status: Acute (3) Pneumonia Priority: Primary Status: Acute Qualifiers: Pneumonia type: due to unspecified organism Laterality: bilateral Lung location: unspecified part of lung Qualified Code(s): J18.9 - Pneumonia, unspecified organism (4) COPD (chronic obstructive pulmonary disease) Priority: Secondary Status: Acute Qualifiers: COPD type: chronic bronchitis Chronic bronchitis type: simple Qualified Code(s): J41.0 - Simple chronic bronchitis (5) Chronic respiratory failure with hypoxia Priority: Secondary Status: Acute (6) Paroxysmal atrial fibrillation Priority: Secondary Status: Chronic Hospital course: Ms. Rodas is a 81 year old female who presented to [place] with complaints of chest pain that began at 11 PM night before. 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 Patient has indicated when she lies down at night she has chest pain, almost nightly she indicated she is supposed to have an appointment with Dr. Stratton due to her severe GERD. [facility] CXR showed bibasilar actelectasis and/or pneumonia. Azithromycin and rocephin started. Pt was admitted in the hospital and placed her on cardiac montior and checked serial troponin. All her trops were negative, she was evaluated by Card who recommend stress test. Her pharmacological stress test came back as negative for ischemia. She does have tachycardia during stress test time, so Card interogate her pacemaker which showed mediated tachycardia and so adjusted PVARP settings. Also recommend to continue her Sotalol 120mg BID. Her CXR findings seems more like atelectasis, however since she felt better with abx, will continue pO Keflex 4 more days. She does have slightly elevated Na, recommend to hydrate well. Also gave Rx for BMP in 2 days - Time Spent with Patient Total time spent providing and/or coordinating discharge services: - Discharge Medications Home Medications: Albuterol Sulfate [Albuterol Inhaler] 1 puff IH DAILY PRN 11/28/14 [History] Alendronate Sodium 70 mg PO QWEEK 11/28/14 [History] Atorvastatin [Lipitor] 80 mg PO HS 11/28/14 [History] Calcium Carbonate/Vitamin D3 [Calcium 250+D Tablet] 1 each PO BID 11/28/14 [ History] Clopidogrel [Plavix] 75 mg PO DAILY 11/28/14 [History] Ezetimibe [Zetia] 10 mg PO HS 11/28/14 [History] Formoterol Fumarate [Perforomist] 20 mcg IH BID 11/28/14 [History] Furosemide [Lasix] 20 mg PO DAILY 11/28/14 [History] GlipiZIDE [Glucotrol] 5 mg PO BIDWM 11/28/14 [History] Nitroglycerin 0.3 mg TD DAILY 11/28/14 [History] Sotalol HCl [Betapace] 120 mg PO BID 11/28/14 [History] Warfarin [Coumadin] 7 mg PO DAILY 02/23/15 [History] Cholecalciferol (D-3) [Vitamin D] 1,000 unit PO DAILY 04/28/16 [History] Diltiazem CD (24hr) [Cardizem CD] 120 mg PO BID 04/28/16 [History] Isosorbide MONOnitrate (24 HR) [Imdur] 60 mg PO BID 04/28/16 [History] Esomeprazole Magnesium [Nexium] 40 mg PO DAILY 02/20/17 [History] Fish Oil/Dha/Epa [Fish Oil 1,200 mg Fish Oil] 2 each PO DAILY 06/01/16 [History] Cyanocobalamin/FA/Pyridoxine [Folbic Tablet] 1 tab PO DAILY 06/02/16 [History] Enalapril Maleate 10 mg PO BID 06/02/16 [History] Vit A/Vit C/Vit E/Zinc/Copper [Preservision Areds Tablet] 1 each PO DAILY [History] Budesonide Neb [Pulmicort Neb] 0.25 mg IH BID 08/24/17 [History] Ferrous Sulfate [Iron] 325 mg PO DAILY 08/24/17 [History] Loratadine [Allergy Relief] 10 mg PO DAILY 08/24/17 [History] Tiotropium [Spiriva] 18 mcg IH DAILY 08/24/17 [History] Cephalexin [Keflex] 500 mg PO TID #12 capsule 08/25/17 [Rx] Allergies/Adverse Reactions: 3 Allergy/AdvReac Type Severity Reaction Status Date / Time bacitracin Allergy Blister Verified 08/24/17 05:53 [From Neosporin ([id number])] cetirizine Allergy Confusion Verified 08/24/17 05:53 ciprofloxacin Allergy Difficulty Verified 08/24/17 05:53 Breathing codeine Allergy Drowsy Verified 08/24/17 05:53 diazepam [From Valium] Allergy See Verified 08/24/17 05:53 Comments miconazole Allergy Blister Verified 08/24/17 05:53 [From Neosporin AF] Neomycin Allergy Blister Verified 08/24/17 05:53 Penicillins Allergy See Verified 08/24/17 05:53 Comments polymyxin B Allergy Blister Verified 08/24/17 05:53 promethazine [From Phenergan] Allergy See Verified 08/24/17 05:53 Comments Sulfa (Sulfonamide Allergy Confusion Verified 08/24/17 05:53 Antibiotics) Date of admission: 08/24/17 10:28 Primary care physician: Justice Tapia MD Consults: 08/24/17 13:00 Consult to Cardiology [CONS] Routine Comment: Consulting Provider: Cardiology [place] Reason for Consult: Chest pain Time Notified: 13:08 Call Completed: No - Constitutional Vitals: Temp Pulse Resp BP Pulse Ox 99.3 F 82 20 135/75 97 08/25/17 16:16 08/25/17 16:16 08/25/17 16:16 08/25/17 16:16 08/25/17 16:16 General appearance: Present: A&O X 3, answers questions appropriately - Head Head exam: Present: atraumatic, normal inspection - Neck Neck exam general surgery: Present: supple - Respiratory Respiratory exam: Present: chest wall tenderness. Absent: respiratory distress , rhonchi, wheezes - Cardiovascular Cardiovascular exam: Present: irregular rhythm, +S1, +S2. Absent: tachycardia - GI/Abdominal GI/Abdominal exam: Present: normal bowel sounds, soft. Absent: rebound, rigid, tenderness - Extremities Exam Extremities exam: Absent: pedal edema, tenderness - Patient Status Disposition: Home, Self-Care Condition: Good Overall status at discharge: patient is back to baseline - Discharge Instructions Follow Up With: Justice Tapia MD [Primary Care Provider] - - Diet and Activity Activity: increase activity as tolerated Diet: low salt diet
[2017-08-25] MEDS ORDERED: *HR* Warfarin 5 MG TABLET PO SCH (18:00)
[2017-08-25] MEDS ORDERED: Warfarin perPT PO PRN (18:00)
[2017-08-25] MEDS ORDERED: Insulin LISPRO 300 UNITS/3 ML VIAL SQ SCH (21:00)
== END 2017-08-25 18:06 | disposition home or self-care (01) ==
LOC: 2ANU
PROVIDERS: ADMIT General Practice; ATTEND General Practice

== ENCOUNTER 2018-04-15 07:50 | Inpatient (IN) ==
[2018-04-15] MEDS ORDERED: Naloxone 0.4 MG/ML INJ IVP PRN (12:35)
[2018-04-15] MEDS ORDERED: Acetaminophen 325 MG TABLET PO PRN (12:35)
[2018-04-15] MEDS ORDERED: Ondansetron 4 MG/2 ML VIAL IVP PRN (12:35)
[2018-04-15] MEDS: Ipratropium/Albuterol Neb 3 ML IH SCH ×3 (15:29→23:26)
[2018-04-15 16:01] LABS: Adenovirus Not Detected (Not Detect); Bordetella Pertussis Not Detected (Not Detect); Chlamydophila pneumoniae Not Detected (Not Detect); Coronavirus 229E Not Detected (Not Detect); Coronavirus HKU1 Not Detected (Not Detect); Coronavirus NL63 Not Detected (Not Detect); Coronavirus OC43 Not Detected (Not Detect); Human Metapneumovirus Not Detected (Not Detect); Human Rhinovirus/Enterovirus Not Detected (Not Detect); Influenza A Subtype 2009 H1 Not Detected (Not Detect); Influenza A Untypeable Not Detected (Not Detect); Influenza B Not Detected (Not Detect); Mycoplasma pneumoniae Not Detected (Not Detect); Parainfluenza Virus 1 Not Detected (Not Detect); Parainfluenza Virus 2 Not Detected (Not Detect); Parainfluenza Virus 3 Not Detected (Not Detect); Parainfluenza Virus 4 Not Detected (Not Detect); Respiratory Syncytial Virus Not Detected (Not Detect)
[2018-04-15] MEDS: Cefepime HCl 1,000 MG in Water for inj. (sterile) 20 ML 10 ML IVP SCH (16:36)
[2018-04-15] MEDS ORDERED: *HR* Dextrose 50 % in Water (Syg) 50 ML SYRINGE IVP PRN (16:58)
[2018-04-15] MEDS ORDERED: Dextrose Gel 15 GM/37.5 ML TUBE PO PRN ×2 (16:58)
[2018-04-15] MEDS ORDERED: D5% in Water 1,000 ML IVC PRN (16:58)
[2018-04-15] MEDS ORDERED: Nitroglycerin 0.4 MG TAB.SUBL SL ONE (17:00)
[2018-04-15] MEDS ORDERED: Warfarin perPT PO PRN (18:00)
[2018-04-15] MEDS ORDERED: *HR* Warfarin 4 MG TABLET PO ONE (18:00)
--- NOTE | 2018-04-15 18:02 | Internal Med History&Physical ---
Date of Encounter: 04/15/18 Time of Encounter: 17:00 Internal Medicine - H&P: HPI Chief complaint: Shortness of breath and chest pressure Admitted From: Emergency Dept Plans for Post Hospital Care: Home History of present illness: Ms. Rodas is a 82 year old female with known history of CAD and multiple stents, paroxysmal atrial fibrillation on Coumadin for anti coag, diabetes mellitus, COPD and chronic hypoxic resp failure on 2 lit oxygen dependent pt who was recently discharged from [facility] [place] after she was treated for pneumonia, now she presented to [place] ER with worsening shortness of breath and chest pressure. Patient also complaining about cough with expectoration. Her chest x-ray showed bilateral lower lobe infiltrates as well as left pleural effusion. She is currently on 3 lit O2 with SPo2 @ 92. She also complaining about intermittent chest pressure for a while, which seems to progressive worsening now. She feels like of chest tightness. She does take Nitro patch on a daily basis at home, which she is off since last night. Patient started complaining about chest pain this evening which improved with sublingual Nitro. Past Med Surg Social Fam HX - Past Medical History Medical history: atrial fibrillation, cancer, CHF, COPD, coronary artery disease, diabetes, GERD, hyperlipidemia, hypertension, pulmonary embolus, other Additional medical history: MACULAR DEGENERATION Psychiatric history: no psych history - Past Surgical History Surgical History: angioplasty/stent, appendectomy, breast surgery, cataract, cholecystectomy, pacemaker/AICD Additional surgical history: Left mastectomy, Cardiac stents X 5, PACEMAKER, RT FOOT SURG, BASAL CELL SURG FROM FACE, Multiple heart caths - Social History Smoking Status: Former smoker Smokeless Tobacco Status: No Alcohol use: none Drug use: none - Family History Mother Living Status: Hx Family Cardiac Disorders: Yes Hx Family Endocrine Disorder: Yes Father Adopted: No Family Member Ethnicity: Non- Living Status: Hx Family Cardiac Disorders: No Hx Family Respiratory Disorders: Yes Hx Family Cancer: Yes Hx Family GI Disorders: No Hx Family Endocrine Disorder: No Hx Family Neuromuscular Disorders: No Hx Family Neurologic Disorders: No Hx Family HEENT Disorders: No Hx Family Autoimmune Disorders: No Sister Living Status: Still Living Hx Family Cancer: Yes (Breast cancer) Internal Medicine - H&P: Meds Albuterol Sulfate [Albuterol Inhaler] 2 puff IH Q4H PRN 11/28/14 [History] Alendronate Sodium 70 mg PO QWEEK 11/28/14 [History] Atorvastatin [Lipitor] 80 mg PO HS 11/28/14 [History] Calcium Carbonate/Vitamin D3 [Calcium 250+D Tablet] 1 each PO BID 11/28/14 [History] Clopidogrel [Plavix] 75 mg PO DAILY 11/28/14 [History] Ezetimibe [Zetia] 10 mg PO HS 11/28/14 [History] Formoterol Fumarate [Perforomist] 20 mcg IH BID 11/28/14 [History] Furosemide [Lasix] 20 mg PO DAILY 11/28/14 [History] GlipiZIDE [Glucotrol] 5 mg PO BIDWM 11/28/14 [History] Nitroglycerin 0.2 mg TD DAILY 11/28/14 [History] Sotalol HCl [Betapace] 120 mg PO BID 11/28/14 [History] Warfarin [Coumadin] 8 mg PO DAILY 02/23/15 [History] Cholecalciferol (D-3) [Vitamin D] 1,000 unit PO DAILY 04/28/16 [History] Diltiazem CD (24hr) [Cardizem CD] 120 mg PO BID 04/28/16 [History] Isosorbide MONOnitrate (24 HR) [Imdur] 90 mg PO BID 04/28/16 [History] Esomeprazole Magnesium [Nexium] 40 mg PO DAILY 06/01/16 [History] Fish Oil/Dha/Epa [Fish Oil 1,200 mg Fish Oil] 2 each PO DAILY 06/01/16 [History] Tiotropium [Spiriva] 18 mcg IH DAILY 08/24/17 [History] Aspirin [Lo-Dose Aspirin EC] 81 mg PO DAILY 01/18/18 [History] Cyanocobalamin/Folic AC/Vit B6 [Folbic Tablet] 1 each PO DAILY 01/18/18 [History] Budesonide Neb [Pulmicort Neb] 0.25 mg IH BIDR 03/30/18 [History] Nitroglycerin 0.1 mg TD DAILY 03/30/18 [History] Acetaminophen [Tylenol] 650 mg PO Q6HR PRN tablet 04/04/18 [Rx] Potassium Chloride 10 meq PO BIDWM #60 tab.er.prt 04/04/18 [Rx] Allergy/AdvReac Type Severity Reaction Status Date / Time bacitracin Allergy Blister Verified 04/15/18 05:32 [From Neosporin ([id number])] cetirizine Allergy Confusion Verified 04/15/18 05:32 ciprofloxacin Allergy Difficulty Verified 04/15/18 05:32 Breathing codeine Allergy Drowsy Verified 04/15/18 05:32 diazepam [From Valium] Allergy See Verified 04/15/18 05:32 Comments miconazole Allergy Blister Verified 04/15/18 05:32 [From Neosporin AF] Neomycin Allergy Blister Verified 04/15/18 05:32 Penicillins Allergy See Verified 04/15/18 05:32 Comments polymyxin B Allergy Blister Verified 04/15/18 05:32 promethazine [From Phenergan] Allergy See Verified 04/15/18 05:32 Comments ranolazine [From Ranexa] Allergy See Verified 03/23/18 17:06 Comments Sulfa (Sulfonamide Allergy Confusion Verified 08/24/17 05:53 Antibiotics) All Systems PM: A 10-system review of systems was performed and is negative for pertinent findings except as documented above in the HPI. Review of systems: All the systems are reviewed everything is benign except the systems and symptoms I mentioned in the history of present illness - Constitutional Vitals: Temp Pulse Resp BP Pulse Ox 99.0 F 96 18 167/70 93 04/15/18 16:20 04/15/18 16:20 04/15/18 16:20 04/15/18 16:20 04/15/18 16:20 General appearance: Present: cooperative, mild distress (With chest pain), A&O X 3, answers questions appropriately Exam: See below - Head Head exam: Present: atraumatic, normal inspection - Neck Neck exam general surgery: Present: supple - Respiratory Respiratory exam: Present: decreased breath sounds, wheezes (Mild). Absent: rales, respiratory distress, rhonchi - Cardiovascular Cardiovascular exam: Present: RRR, +S1, +S2. Absent: tachycardia - GI/Abdominal GI/Abdominal exam: Present: normal bowel sounds, soft. Absent: rebound, rigid, tenderness - Back Exam Back exam: Absent: CVA tenderness (L), CVA tenderness (R) - Neurological Exam Neurological exam: Present: alert, oriented X3 - Psychiatric Psychiatric exam: Present: normal affect, normal mood - Skin Skin exam: Absent: rash Internal Med - H&P Results - Labs Labs: Cardiac Enzymes 04/15/18 Range/Units 15:23 Troponin I < 0.03 (< 0.04) ng/mL - Assessment and plan (1) Bilateral pneumonia Current Visit: No Status: Acute Assessment and plan: Admit the pt into tele reviewed her chest x-ray showed bilateral lower lobe infiltrates mostly bacterial pneumonia will check sputum culture, respiratory viral panel, step pneumonia and Legionella antigen since patient finished 7 days course of azithromycin, no need of atypical coverage now started her on empirical abx Cefepime will f/u sputum cx cont Duoneb Qualifiers: Pneumonia type: due to unspecified organism Lung location: lower lobe of lung Qualified Code(s): J18.1 - Lobar pneumonia, unspecified organism (2) Acute and chronic respiratory failure with hypoxia Current Visit: Yes Status: Acute Assessment and plan: Due to pneumonia and COPD exacerbation continue symptomatic and supportive care with the bronchodilator, antibiotic and oral steroids (3) Acute exacerbation of chronic obstructive pulmonary disease (COPD) Current Visit: No Status: Acute Assessment and plan: Mild COPD exacerbation due to PNA cont STEFANIE Duoneb and Steroid INH started her on low dose systemic steroids too try to wean her off the O2 to baseline (4) Chest pain Current Visit: No Status: Acute Assessment and plan: place pt on rn cardiac rehab check serial troponin so far negative troponin EKG reviewed no acute ischemic changes noticed patient has been having intermittent chest pain for a while and her CP seems to be more like angina equivalent also patient is chronic Nitro dependent.. so resumed her Nitro patch if pain does not improve will start her on Nitro gtt Consulted card for further eval Will defer to cardiology regarding further workup Qualifiers: Chest pain type: unspecified Qualified Code(s): R07.9 - Chest pain, unspecified (5) Coronary artery disease Current Visit: No Status: Chronic Assessment and plan: Resumed all home medications Qualifiers: Coronary Disease-Associated Artery/Lesion type: unspecified vessel or lesion type [place] vs. transplanted heart: [place] heart Associated angina: angina presence unspecified Qualified Code(s): I25.10 - Atherosclerotic heart disease of [place] coronary artery without angina pectoris (6) Diabetes mellitus Current Visit: No Status: Chronic Assessment and plan: On insulin sliding scale ADA diet Qualifiers: Diabetes mellitus type: type 2 Diabetes mellitus correction insulin use: without correction use Diabetes mellitus complication status: with unspecified complications Qualified Code(s): E11.8 - Type 2 diabetes mellitus with unspecified complications (7) Paroxysmal atrial fibrillation Current Visit: No Status: Chronic Assessment and plan: Rate controlled with Sotalol and cardizem on Coumadin for anti coag PT / INR in AM (8) Chronic diastolic CHF (congestive heart failure) Current Visit: Yes Status: Acute Assessment and plan: Not in exacerbation resumed all home meds reviewed her 2D Echo from 08/27 will repeat another 2D Echo now - Time Spent With Patient Total time spent is greater than 50% in coordination of care (as documented) at patient's floor/unit and/or counseling patient:
[2018-04-15] MEDS: Diltiazem CD (24hr) 120 MG CAPSULE PO SCH (19:58)
[2018-04-15] MEDS: Isosorbide MONOnitrate (24 HR) 60 MG TAB.ER.24H PO SCH (19:58)
[2018-04-15] MEDS: Nitroglycerin 0.4 MG TAB.SUBL SL PRN (20:07)
[2018-04-15] MEDS: Insulin LISPRO 300 UNITS/3 ML VIAL SQ SCH (20:19)
[2018-04-15] MEDS: predniSONE 20 MG TABLET PO SCH (20:19)
[2018-04-15] MEDS: Nitroglycerin 0.3 MG PATCH.TD24 TD SCH (20:25)
[2018-04-15] MEDS: (Ezetimibe [Zetia] 10 MG) PO SCH (20:40)
[2018-04-15] MEDS: Budesonide Neb 0.25 MG/2 ML IH SCH (23:26)
[2018-04-16] MEDS: Cefepime HCl 1,000 MG in Water for inj. (sterile) 20 ML 10 ML IVP SCH ×3 (01:31→16:33)
[2018-04-16] MEDS: Ipratropium/Albuterol Neb 3 ML IH SCH ×5 (03:40→20:48)
[2018-04-16 04:35] LABS: Basophils % 0.1 %
[2018-04-16 04:41] LABS: INR 2.5; Prothrombin Time 28.7 Seconds (9.4-12.1)
[2018-04-16 04:43] LABS: Hematocrit 28.3 % (35.3-44.9); Hemoglobin 8.2 g/dL (11.5-15.4); Immature Granulocytes % 0.6 % (0-4); Immature Platelets 1.9 % (1.1-6.1); Lymphocytes % 9.8 %; Mean Corpuscular Hemoglobin 21.4 pg (28.0-33.3); Mean Corpuscular Volume 73.7 fL (83.0-100.0); Monocytes # 0.3 K/mcL (0.0-1.3); Monocytes % 2.6 %; Neutrophils # 8.8 K/mcL (1.6-8.9); Platelet Count 449 K/mcL (140-400); Red Blood Count 3.84 M/mcL (3.82-4.97); Red Cell Distribution Width 17.9 % (11.5-14.5); Segmented Neutrophils % 86.9 %
[2018-04-16 04:55] LABS: BUN/Creatinine Ratio 33 (6-26); Blood Urea Nitrogen 17 mg/dL (8-23); Calcium 8.8 mg/dL (8.6-10.3); Carbon Dioxide 31 mEq/L (23-29); Chloride 104 mEq/L (98-107); Chol/HDL Ratio 2.9 (0-4.9); Cholesterol 155 mg/dL (< 200); Glucose 174 mg/dL (70-105); HDL Cholesterol 53 mg/dL (40-59); LDL Cholesterol,Calculated 82 mg/dL (0-99); Osmolality,Calculated 296 (280-300); Potassium 3.9 mEq/L (3.5-5.1); Sodium 140 mEq/L (136-145); Triglycerides 101 mg/dL (< 150); eGFR For Non-African Americans > 60 (> 60)
[2018-04-16] MEDS: Budesonide Neb 0.25 MG/2 ML IH SCH ×2 (07:28→20:48)
[2018-04-16] MEDS ORDERED: Nitroglycerin 0.1 MG PATCH.TD24 TD SCH (07:30)
[2018-04-16] MEDS: Isosorbide MONOnitrate (24 HR) 60 MG TAB.ER.24H PO SCH ×2 (08:39→21:17)
[2018-04-16] MEDS: Diltiazem CD (24hr) 120 MG CAPSULE PO SCH ×2 (08:40→21:17)
[2018-04-16] MEDS: Cholecalciferol (D-3) 1,000 UNIT TABLET PO SCH (08:40)
[2018-04-16] MEDS: Loratadine 10 MG TABLET PO SCH (08:41)
[2018-04-16] MEDS: Nitroglycerin 0.3 MG PATCH.TD24 TD SCH (08:41)
[2018-04-16] MEDS: Aspirin Enteric Coated 81 MG Tablet PO SCH (08:41)
[2018-04-16] MEDS: Furosemide 20 MG TABLET PO SCH (08:41)
[2018-04-16] MEDS: predniSONE 20 MG TABLET PO SCH (08:41)
[2018-04-16] MEDS: Insulin LISPRO 300 UNITS/3 ML VIAL SQ SCH ×4 (08:42→21:48)
[2018-04-16] MEDS: (Formoterol Fumarate [Perforomist] 20 MCG) IH SCH ×3 (08:43→21:48)
[2018-04-16] MEDS: CYANOCOBALAMIN PO SCH (08:43)
[2018-04-16] MEDS: FOLIC AC PO SCH (08:43)
[2018-04-16] MEDS: VIT B6 PO SCH (08:43)
--- NOTE | 2018-04-16 10:50 | Internal Med Progress Note ---
Hospitalist Progress Note - Encounter Date of Encounter: 04/16/18 Time of Encounter: 10:30 - Subjective Interval History: Ms Rodas is currently admitted for respiratory failure and pneumonia. She remains moderate to high risk due to potential for worsening clinical and respiratory status. Ms Rodas is beginning to feel better. She is up in chair. She feels like she is breathing better and can get better air down in L lung. No fever or chills. On steroids and aerosols. No further chest pain. - Exam Vitals: Temp Pulse Resp BP Pulse Ox 98.4 F 89 14 148/68 94 04/16/18 06:46 04/16/18 06:46 04/16/18 07:27 04/16/18 06:46 04/16/18 07:27 Exam: General: Alert and oriented. Comfortable at this time. Up in chair. Skin: Normal color, no rash, no lesions. H: Normocephalic. EENT: EOMI, pupils equal. Mucus membranes moist. No lesion. Cardiovascular: Normal S1 & S2, no murmurs or gallops. Pulse regular. Not tachycardic at this time. Lungs: Normal breath sounds. Crackles heard in L base area. No wheeze or rhonchi. Abdomen: Soft, non-tender, no rigidity. Normal bowel sounds. Extremities: No deformity, no edema or tenderness, no joint swelling or clubbing. Neurological: Normal cognition and motor skills. Pulses: Carotid and radial pulses normal +2. Rest of the physical exam is non contributory - Assessment and Plan (1) Acute and chronic respiratory failure with hypoxia Current Visit: Yes Status: Acute Assessment and Plan: Related to acute pneumonia and COPD. Continue IV Cefipime, steroids, aerosols. Wean oxygen as able. (2) Bilateral pneumonia Current Visit: No Status: Suspected Assessment and Plan: Pt presented to ED with recurrent respiratory symptoms. Respiratory panel is negative, strep and legionella negative. Overall slowly improving with IV Cefipime which will continue today. Increase activity. (3) Acute exacerbation of chronic obstructive pulmonary disease (COPD) Current Visit: No Status: Acute Assessment and Plan: Respiratory symptoms related to acute pneumonia. Continue steroids, aerosols, abx. (4) Diabetes mellitus Current Visit: No Status: Chronic Assessment and Plan: On insulin sliding scale ADA diet Blood sugars elevated now - most likely due to steroids. (5) Coronary artery disease Current Visit: No Status: Chronic Assessment and Plan: Had chest pain at presentation but has resolved with treatment of pneumonia. Troponin negative. Will arrange cardiology follow up. (6) Paroxysmal atrial fibrillation Current Visit: No Status: Chronic Assessment and Plan: Rate controlled with Sotalol and cardizem on Coumadin for anti coag INR therapeutic. (7) Chest pain Current Visit: No Status: Acute Assessment and Plan: At this time her chest pain has improved. Spoke with cardiology - will defer any further work up to outpatient. (8) Chronic diastolic CHF (congestive heart failure) Current Visit: Yes Status: Acute Assessment and Plan: Not in exacerbation On home meds. Echo ordered. DVT Prophylaxis: Coumadin - Time Spent with Patient Total time spent is greater than 50% in coordination of care (as documented) at patient's floor/unit and/or counseling patient: Internal Medicine: Result - Labs CBC & Chem 7: 04/16/18 03:51 04/16/18 03:51 Labs: Short CBC 04/16/18 Range/Units 03:51 WBC 10.1 (4.3-11.1) K/mcL Hgb 8.2 L (11.5-15.4) g/dL Hct 28.3 L (35.3-44.9) % Plt Count 449 H (140-400) K/mcL Neutrophils # 8.8 (1.6-8.9) K/mcL BMP 04/16/18 03:51 Sodium 140 Potassium 3.9 Chloride 104 Carbon Dioxide 31 H BUN 17 Creatinine 0.51 L Glucose 174 H Calcium 8.8 Cardiac Enzymes 04/15/18 04/15/18 Range/Units 15:23 20:47 Troponin I < 0.03 < 0.03 (< 0.04) ng/mL - ABG Interpretation ABG results: PT/INR, D-dimer PT 28.7 Seconds (9.4-12.1) H 04/16/18 03:51 Consult Discharge Plan - Plan Referrals: Justice Tapia MD [Primary Care Provider] - (2) Bilateral pneumonia Qualifiers: Pneumonia type: due to other aerobic Gram-negative bacteria Lung location: lower lobe of lung Qualified Code(s): J15.6 - Pneumonia due to other Gram- negative bacteria (4) Diabetes mellitus Qualifiers: Diabetes mellitus type: type 2 Diabetes mellitus usp insulin use: without barrel handler use Diabetes mellitus complication status: with hyperglycemia Qualified Code(s): E11.65 - Type 2 diabetes mellitus with hyperglycemia (5) Coronary artery disease Qualifiers: Coronary Disease-Associated Artery/Lesion type: [place] artery [place] vs. transplanted heart: [place] heart Associated angina: without angina Qualified Code(s): I25.10 - Atherosclerotic heart disease of [place] coronary artery without angina pectoris (7) Chest pain Qualifiers: Chest pain type: unspecified Qualified Code(s): R07.9 - Chest pain, unspecified
[2018-04-16] MEDS ORDERED: *HR* Warfarin 4 MG TABLET PO ONE (18:00)
[2018-04-16] MEDS: Latanoprost 2.5 ML BOTTLE BOTH EYES SCH (21:21)
[2018-04-16] MEDS: (Ezetimibe [Zetia] 10 MG) PO SCH (21:48)
[2018-04-17] MEDS: Ipratropium/Albuterol Neb 3 ML IH SCH ×7 (00:31→23:10)
[2018-04-17] MEDS: Budesonide Neb 0.25 MG/2 ML IH SCH ×2 (07:18→20:00)
[2018-04-17] MEDS: Isosorbide MONOnitrate (24 HR) 60 MG TAB.ER.24H PO SCH ×2 (08:14→21:25)
[2018-04-17] MEDS: Loratadine 10 MG TABLET PO SCH (08:14)
[2018-04-17] MEDS: Aspirin Enteric Coated 81 MG Tablet PO SCH (08:15)
[2018-04-17] MEDS: Nitroglycerin 0.3 MG PATCH.TD24 TD SCH (08:16)
[2018-04-17] MEDS: Cholecalciferol (D-3) 1,000 UNIT TABLET PO SCH (08:16)
[2018-04-17] MEDS: Diltiazem CD (24hr) 120 MG CAPSULE PO SCH ×2 (08:16→21:24)
[2018-04-17] MEDS: Furosemide 20 MG TABLET PO SCH (08:16)
[2018-04-17] MEDS: Cefepime HCl 1,000 MG in Water for inj. (sterile) 20 ML 10 ML IVP SCH ×4 (08:16→23:59)
[2018-04-17] MEDS: (Formoterol Fumarate [Perforomist] 20 MCG) IH SCH ×2 (08:17→23:59)
[2018-04-17] MEDS: FOLIC AC PO SCH (08:17)
[2018-04-17] MEDS: VIT B6 PO SCH (08:17)
[2018-04-17] MEDS: CYANOCOBALAMIN PO SCH (08:17)
[2018-04-17] MEDS: Insulin LISPRO 300 UNITS/3 ML VIAL SQ SCH ×4 (08:17→21:31)
[2018-04-17] MEDS: predniSONE 20 MG TABLET PO SCH (08:20)
[2018-04-17 09:33] LABS: Red Cell Distribution Width 18.2 % (11.5-14.5)
[2018-04-17 09:34] LABS: Hematocrit 31.5 % (35.3-44.9); Hemoglobin 8.7 g/dL (11.5-15.4); Mean Corpuscular HGB Conc 27.6 g/dL (31.6-35.5); Mean Corpuscular Hemoglobin 21.3 pg (28.0-33.3); Mean Platelet Volume 9.8 fL (9.4-12.4); Platelet Count 418 K/mcL (140-400); Red Blood Count 4.09 M/mcL (3.82-4.97)
[2018-04-17 09:43] LABS: INR 2.4; Prothrombin Time 27.5 Seconds (9.4-12.1)
[2018-04-17 09:45] LABS: BUN/Creatinine Ratio 37 (6-26); Blood Urea Nitrogen 22 mg/dL (8-23); Carbon Dioxide 30 mEq/L (23-29); Chloride 103 mEq/L (98-107); Glucose 120 mg/dL (70-105); Magnesium 1.9 mg/dL (1.6-2.6); Osmolality,Calculated 297 (280-300); Potassium 3.8 mEq/L (3.5-5.1); Sodium 141 mEq/L (136-145); eGFR For Non-African Americans > 60 (> 60)
--- NOTE | 2018-04-17 12:05 | Internal Med Progress Note ---
Hospitalist Progress Note - Encounter Date of Encounter: 04/17/18 Time of Encounter: 11:30 - Subjective Interval History: Ms Rodas is currently admitted for respiratory failure and pneumonia. She remains moderate to high risk due to potential for worsening clinical and respiratory status. Ms Rodas is up in the chair. No further chest pain after nitro patches applied. Has a lot of chest congestion and can't get secretions mobilized. No fever or chills. No abd pain. - Exam Vitals: Temp Pulse Resp BP Pulse Ox 97.8 F 72 15 139/77 95 04/17/18 11:03 04/17/18 11:03 04/17/18 11:03 04/17/18 11:03 04/17/18 11:03 Exam: General: Alert and oriented. Comfortable at this time. Up in chair. Skin: Normal color, no rash, no lesions. H: Normocephalic. EENT: EOMI, pupils equal. Mucus membranes moist. No lesion. Cardiovascular: Normal S1 & S2, no murmurs or gallops. No tachycardia. Lungs: Good air movement. Scattered rales L base. Moist cough. Abdomen: Soft, non-tender, no rigidity. Normal bowel sounds. Extremities: No deformity, no edema or tenderness, no joint swelling or clubbing. Neurological: Normal cognition and motor skills. Pulses: Carotid and radial pulses normal +2. Rest of the physical exam is non contributory - Assessment and Plan (1) Acute and chronic respiratory failure with hypoxia Current Visit: Yes Status: Acute Assessment and Plan: Continues to slowly improve but still with secretions. Wean oxygen as able. (2) Bilateral pneumonia Current Visit: No Status: Suspected Assessment and Plan: Pt presented to ED with recurrent respiratory symptoms. Respiratory panel is negative, strep and legionella negative. Slowly improving with IV Cefipime. Add Mucinex and mucomyst. (3) Acute exacerbation of chronic obstructive pulmonary disease (COPD) Current Visit: No Status: Acute Assessment and Plan: Respiratory symptoms related to acute pneumonia. Continue steroids, aerosols, abx. Add mucolytic. (4) Diabetes mellitus Current Visit: No Status: Chronic Assessment and Plan: On insulin sliding scale ADA diet Blood sugars improving with improved condition. (5) Coronary artery disease Current Visit: No Status: Chronic Assessment and Plan: Had chest pain at presentation but has resolved with treatment of pneumonia. Troponin negative. Will arrange cardiology follow up. Continue home dose of nitroglycerin. (6) Paroxysmal atrial fibrillation Current Visit: No Status: Chronic Assessment and Plan: Rate controlled with Sotalol and cardizem on Coumadin for anti coag INR therapeutic. (7) Chest pain Current Visit: No Status: Resolved Assessment and Plan: Asymptomatic now. (8) Chronic diastolic CHF (congestive heart failure) Current Visit: Yes Status: Chronic Assessment and Plan: Not in exacerbation On home meds. DVT Prophylaxis: Coumadin - Time Spent with Patient Total time spent is greater than 50% in coordination of care (as documented) at patient's floor/unit and/or counseling patient: Internal Medicine: Result - Labs CBC & Chem 7: 04/17/18 08:46 04/17/18 08:46 Labs: Short CBC 04/17/18 Range/Units 08:46 WBC 9.0 (4.3-11.1) K/mcL Hgb 8.7 L (11.5-15.4) g/dL Hct 31.5 L (35.3-44.9) % Plt Count 418 H (140-400) K/mcL BMP 04/17/18 08:46 Sodium 141 Potassium 3.8 Chloride 103 Carbon Dioxide 30 H BUN 22 Creatinine 0.60 Glucose 120 H Calcium 9.0 - ABG Interpretation ABG results: PT/INR, D-dimer PT 27.5 Seconds (9.4-12.1) H 04/17/18 08:46 Consult Discharge Plan - Plan Referrals: Justice Tapia MD [Primary Care Provider] - (2) Bilateral pneumonia Qualifiers: Pneumonia type: due to other aerobic Gram-negative bacteria Lung location: lower lobe of lung Qualified Code(s): J15.6 - Pneumonia due to other Gram-negative bacteria (4) Diabetes mellitus Qualifiers: Diabetes mellitus type: type 2 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 transplanted heart: [place] heart Associated angina: without angina Qualified Code(s): I25.10 - Atherosclerotic heart disease of [place] coronary artery without angina pectoris (7) Chest pain Qualifiers: Chest pain type: chest pain due to myocardial ischemia Ischemic chest pain type: stable angina pectoris Qualified Code(s): I20.8 - Other forms of angina pectoris
[2018-04-17] MEDS: Acetylcysteine 10% 2 ML INHSOL IH SCH ×4 (13:03→23:10)
[2018-04-17] MEDS ORDERED: *HR* Warfarin 4 MG TABLET PO ONE (18:00)
[2018-04-17] MEDS: Latanoprost 2.5 ML BOTTLE BOTH EYES SCH (21:30)
[2018-04-17] MEDS: (Ezetimibe [Zetia] 10 MG) PO SCH (21:32)
[2018-04-18] MEDS: Ipratropium/Albuterol Neb 3 ML IH SCH ×6 (03:04→22:58)
[2018-04-18] MEDS: Acetylcysteine 10% 2 ML INHSOL IH SCH ×6 (03:04→22:58)
[2018-04-18 04:37] LABS: Hematocrit 30.1 % (35.3-44.9); Hemoglobin 8.6 g/dL (11.5-15.4); Mean Corpuscular HGB Conc 28.6 g/dL (31.6-35.5); Mean Corpuscular Volume 73.6 fL (83.0-100.0); Platelet Count 464 K/mcL (140-400); Red Blood Count 4.09 M/mcL (3.82-4.97); Red Cell Distribution Width 18.1 % (11.5-14.5)
[2018-04-18 04:49] LABS: INR 2.2; Prothrombin Time 25.1 Seconds (9.4-12.1)
[2018-04-18 04:55] LABS: BUN/Creatinine Ratio 44 (6-26); Blood Urea Nitrogen 27 mg/dL (8-23); Calcium 9.4 mg/dL (8.6-10.3); Carbon Dioxide 30 mEq/L (23-29); Chloride 102 mEq/L (98-107); Glucose 112 mg/dL (70-105); Osmolality,Calculated 296 (280-300); Sodium 140 mEq/L (136-145); eGFR For Non-African Americans > 60 (> 60)
[2018-04-18] MEDS: Budesonide Neb 0.25 MG/2 ML IH SCH ×2 (07:21→19:34)
[2018-04-18] MEDS: Aspirin Enteric Coated 81 MG Tablet PO SCH (10:09)
[2018-04-18] MEDS: Furosemide 20 MG TABLET PO SCH (10:09)
[2018-04-18] MEDS: Isosorbide MONOnitrate (24 HR) 60 MG TAB.ER.24H PO SCH (10:09)
[2018-04-18] MEDS: Loratadine 10 MG TABLET PO SCH (10:10)
[2018-04-18] MEDS: Diltiazem CD (24hr) 120 MG CAPSULE PO SCH ×2 (10:10→20:48)
[2018-04-18] MEDS: Cefepime HCl 1,000 MG in Water for inj. (sterile) 20 ML 10 ML IVP SCH ×2 (10:11→16:04)
[2018-04-18] MEDS: Cholecalciferol (D-3) 1,000 UNIT TABLET PO SCH (10:11)
[2018-04-18] MEDS: VIT B6 PO SCH (10:12)
[2018-04-18] MEDS: Nitroglycerin 0.3 MG PATCH.TD24 TD SCH (10:12)
[2018-04-18] MEDS: FOLIC AC PO SCH (10:12)
[2018-04-18] MEDS: CYANOCOBALAMIN PO SCH (10:12)
[2018-04-18] MEDS: (Formoterol Fumarate [Perforomist] 20 MCG) IH SCH (10:13)
[2018-04-18] MEDS: predniSONE 20 MG TABLET PO SCH (10:13)
[2018-04-18] MEDS: Insulin LISPRO 300 UNITS/3 ML VIAL SQ SCH ×4 (10:16→23:00)
--- NOTE | 2018-04-18 10:43 | Internal Med Progress Note ---
<JadenclarkNaveed - Last Filed: 04/18/18 13:32> Hospitalist Progress Note - Encounter Date of Encounter: 04/18/18 Time of Encounter: 10:39 - Subjective Interval History: Patient is an 82-year-old female with a past medical history of atrial fibrillation, congestive heart failure, COPD, CAD, diabetes mellitus, GERD, h ypertension, pulmonary embolism, and cancer anticoagulated on Coumadin requiring 2 L/m of oxygen via nasal cannula. Patient has significant history of heart disease stating that she has had 17 cardiac catheterizations and 5 stent placements. Patient wears 2 nitroglycerin patches at home for hypertension plus unstable angina, patient is also on Imdur. Was seen at [place] ED on March 30 for left lower lobe pneumonia with pleural effusion. It is noted in documentation during that encounter that the patient had previously failed outpatient treatment twice by that time. Patient was hospitalized for 6 days and was released on April 04 after receiving IV Rocephin and Zithromax while in hospital and discharged home with 5 days of oral Keflex. Patient again presented to [place] ED on April 15 due to increasing dyspnea and noted desaturations intubated percent range - requiring additional home oxygen use. Patient was found to have "left pleural effusion with bibasilar atelectasis and/or pneumonia, left greater than right" on chest x-ray and was transferred to [facility] for further evaluation and care. Upon initial evaluation 20 patient sitting upright in hospital chair, she is well-dressed and well-groomed, awake, alert, pleasant, engaged to conversation and answering questions appropriately. Patient's is in room and acting as co-historian. Patient states that she feels much better today but that she still is having a great deal of difficulty with chest congestion and says that she has only been coughing up scant amount of thick sputum which she describes being rubbery in texture that she has to "pull from her mouth". The patient admits to lower back pain which she feels is associated with positioning between her bed and hospital chair patient rates pain 6 out of 10 states that she takes Tylenol at home for management. Patient denies headache, vision change, tinnitus, fever/chills, chest pain, new shortness of breath, abdo rudy pain/nausea/vomiting, dizziness or difficulty with ambulation, - Exam Vitals: Temp Pulse Resp BP Pulse Ox 97.7 F 73 16 156/68 98 04/18/18 06:38 04/18/18 06:38 04/18/18 07:24 04/18/18 06:38 04/18/18 07:24 Exam: Constitutional: Patient sitting upright in chair, awake, alert, pleasant, engaged to conversation, answers questions appropriately. HEENT: Atraumatic, normocephalic, PERRL, EOMI, non-icteric sclera. CV: RRR, S1 + S2, no murmurs, gallops, or rubs appreciated. Resp: Coarse rhonchi in RIGHT lung base, diffuse reverberations noted. Abd: Soft, rotund, non-tender, non-distended, no guarding or rebound appreciated. Skin: Warm, dry, intact. Extremities: Moves all 4 extremities spontaneously. - Assessment and Plan (1) Bilateral pneumonia Current Visit: No Status: Suspected Assessment and Plan: Patient found to have bilateral lower lobe infiltrate with a left pleural effusion at [place] [facility] Patient is currently expressing productive cough of scant thick, rubbery mucous-feels as though she is unable to cough up mucus secretions Patient is currently at 98% oxygen saturation on 2 L by minute nasal cannula with respiratory rate of 16, nonlabored and regular. Plan: Continue IV cefepime (day 4) Continue Mucinex and Mucomyst (day 2) + chest percussion plus a cappella (2) Acute exacerbation of chronic obstructive pulmonary disease (COPD) Current Visit: No Status: Acute Assessment and Plan: Patient with known history of COPD Plan: As above Continue prednisone 40 mg by mouth daily Continue DuoNeb plus Pulmicort nebs (3) Diabetes mellitus Current Visit: No Status: Chronic Assessment and Plan: Patient with known history of diabetes mellitus type 2 Patient is on corrective low-dose sliding scale insulin regimen Glucose is well-managed in-hospital is currently stable 112 Plan: Continue sliding scale insulin Continue ADA diet Continue to monitor glucose (4) Coronary artery disease Current Visit: No Status: Chronic Assessment and Plan: Patient with known past medical history of CAD Has had 17 heart catheterizations with 5 stents placed Troponin negative at less than 0.03 Plan: Continue home nitroglycerin sublingual and transdermal Patient will follow up with cardiology as outpatient (5) Paroxysmal atrial fibrillation Current Visit: No Status: Chronic Assessment and Plan: Heart rate is currently 73 and regular Plan: Continue rate control with sotalol and cardizem (6) Anticoagulated on Coumadin Current Visit: No Status: Chronic Assessment and Plan: Patient anticoagulation with Coumadin for the treatment of atrial fibrillation Plan: Patient INR is currently therapeutic at 2.2 Continue to monitor (7) Acute low back pain Current Visit: No Status: Acute Assessment and Plan: Patient complains today of low back pain 6 out of 10 on the pain scale associated with positional change Patient states that she uses Tylenol at home for pain management Plan: Patient will be given 500 mg Tylenol and reassessed for pain control Continue to monitor (8) Chronic diastolic CHF (congestive heart failure) Current Visit: Yes Status: Chronic Assessment and Plan: Continue home medications DVT Prophylaxis: Coumadin 4 mg by mouth daily - Time Spent with Patient Total time spent is greater than 50% in coordination of care (as documented) at patient's floor/unit and/or counseling patient: Internal Medicine: Result - Labs CBC & Chem 7: 04/18/18 04:03 04/18/18 04:03 Labs: Short CBC 04/18/18 Range/Units 04:03 WBC 9.9 (4.3-11.1) K/mcL Hgb 8.6 L (11.5-15.4) g/dL Hct 30.1 L (35.3-44.9) % Plt Count 464 H (140-400) K/mcL BMP 04/18/18 04:03 Sodium 140 Potassium 4.0 Chloride 102 Carbon Dioxide 30 H BUN 27 H Creatinine 0.61 Glucose 112 H Calcium 9.4 - ABG Interpretation ABG results: PT/INR, D-dimer PT 25.1 Seconds (9.4-12.1) H 04/18/18 04:03 Consult Discharge Plan - Plan Referrals: Justice Tapia MD [Primary Care Provider] - <Tono Henley - Last Filed: 04/18/18 14:48> Hospitalist Progress Note - Encounter Date of Encounter: 04/18/18 - Exam Vitals: Temp Pulse Resp BP Pulse Ox 97.7 F 73 16 156/68 98 04/18/18 06:38 04/18/18 06:38 04/18/18 07:24 04/18/18 06:38 04/18/18 07:24 - Assessment and Plan (1) Acute and chronic respiratory failure with hypoxia Current Visit: Yes Status: Acute (2) Bilateral pneumonia Current Visit: No Status: Suspected (3) Acute exacerbation of chronic obstructive pulmonary disease (COPD) Current Visit: No Status: Acute (4) Diabetes mellitus Current Visit: No Status: Chronic (5) Coronary artery disease Current Visit: No Status: Chronic (6) Paroxysmal atrial fibrillation Current Visit: No Status: Chronic (7) Chronic diastolic CHF (congestive heart failure) Current Visit: Yes Status: Chronic - Time Spent with Patient Total time spent is greater than 50% in coordination of care (as documented) at patient's floor/unit and/or counseling patient: Internal Medicine: Result - Labs CBC & Chem 7: 04/18/18 04:03 04/18/18 04:03 Labs: Short CBC 04/18/18 Range/Units 04:03 WBC 9.9 (4.3-11.1) K/mcL Hgb 8.6 L (11.5-15.4) g/dL Hct 30.1 L (35.3-44.9) % Plt Count 464 H (140-400) K/mcL BMP 04/18/18 04:03 Sodium 140 Potassium 4.0 Chloride 102 Carbon Dioxide 30 H BUN 27 H Creatinine 0.61 Glucose 112 H Calcium 9.4 - ABG Interpretation ABG results: PT/INR, D-dimer PT 25.1 Seconds (9.4-12.1) H 04/18/18 04:03 - Attending Attestation I examined this patient and my medical decision-making was reviewed with the Resident Physician on 04/18/18. I agree with the documented findings, disposition and treatment plan as described except to the extent set forth below. Ms Rodas is currently admitted for acute on chronic resp failure and COPD exacerbation. She remains moderate to high risk due to potential for worsening clinical status. Ms Rodas is up in chair. She is still having a lot of secretions in her L chest. Nothing seems to get it out. No fever or chills. No CP now. No GI issues. Exam alert Comfortable up in chair. Mucus membranes dry Heart reg and not tachy No wheeze but rhonchi heard EARLINE area Abd soft No edema Moves all extremities I/P 1. Acute on chronic resp failure - slowly improving 2. Add percussion for secretions. Continue mucinex and mucomyst 3. Stable angina Further diagnoses and plan as above. <JadenclarkNaveed - Last Filed: 04/18/18 13:32> (1) Bilateral pneumonia Qualifiers: Pneumonia type: due to other aerobic Gram-negative bacteria Lung location: lower lobe of lung Qualified Code(s): J15.6 - Pneumonia due to other Gram- negative bacteria (3) Diabetes mellitus Qualifiers: Diabetes mellitus type: type 2 Diabetes mellitus dial buffer insulin use: without assisted use Diabetes mellitus complication status: with hyperglycemia Qualified Code(s): E11.65 - Type 2 diabetes mellitus with hyperglycemia (4) Coronary artery disease Qualifiers: Coronary Disease-Associated Artery/Lesion type: [place] artery [place] vs. transplanted heart: [place] heart Associated angina: without angina Qualified Code(s): I25.10 - Atherosclerotic heart disease of [place] coronary artery without angina pectoris (7) Acute low back pain Qualifiers: Back pain laterality: right Sciatica presence: without sciatica Qualified Code(s): M54.5 - Low back pain <Tono Henley - Last Filed: 04/18/18 14:48> (2) Bilateral pneumonia Qualifiers: Pneumonia type: due to other aerobic Gram-negative bacteria Lung location: lower lobe of lung Qualified Code(s): J15.6 - Pneumonia due to other Gram- negative bacteria (4) Diabetes mellitus Qualifiers: Diabetes mellitus type: type 2 Diabetes mellitus dial buffer insulin use: without dial buffer use Diabetes mellitus complication status: with hyperglycemia Qualified Code(s): E11.65 - Type 2 diabetes mellitus with hyperglycemia (5) Coronary artery disease Qualifiers: Coronary Disease-Associated Artery/Lesion type: [place] artery [place] vs. transplanted heart: [place] heart Associated angina: with stable angina Qualified Code(s): I25.118 - Atherosclerotic heart disease of [place] coronary artery with other forms of angina pectoris
--- NOTE | 2018-04-18 13:56 | Electrocardiograph Report ---
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
[2018-04-18] MEDS ORDERED: *HR* Warfarin 4 MG TABLET PO ONE (18:00)
[2018-04-18] MEDS: Latanoprost 2.5 ML BOTTLE BOTH EYES SCH (20:53)
[2018-04-18] MEDS: (Ezetimibe [Zetia] 10 MG) PO SCH (20:54)
[2018-04-18] MEDS: Nitroglycerin 0.4 MG TAB.SUBL SL PRN (23:25)
[2018-04-19] MEDS: Cefepime HCl 1,000 MG in Water for inj. (sterile) 20 ML 10 ML IVP SCH ×3 (00:05→16:38)
[2018-04-19] MEDS: Acetylcysteine 10% 2 ML INHSOL IH SCH ×3 (03:30→11:30)
[2018-04-19] MEDS: Ipratropium/Albuterol Neb 3 ML IH SCH ×6 (03:31→23:47)
[2018-04-19] MEDS: Nitroglycerin 0.4 MG TAB.SUBL SL PRN (03:57)
[2018-04-19 05:45] LABS: Basophils % 0.1 %; Nucleated Red Blood Cells 0.2 /100 WBC (0); Red Cell Distribution Width 17.9 % (11.5-14.5)
[2018-04-19 05:47] LABS: Eosinophils % 0.1 %; Hemoglobin 8.1 g/dL (11.5-15.4); Immature Granulocytes % 0.7 % (0-4); Lymphocytes # 2.1 K/mcL (0.6-4.6); Lymphocytes % 25.2 %; Mean Corpuscular HGB Conc 28.9 g/dL (31.6-35.5); Mean Corpuscular Hemoglobin 21.1 pg (28.0-33.3); Mean Corpuscular Volume 72.9 fL (83.0-100.0); Mean Platelet Volume 9.6 fL (9.4-12.4); Monocytes # 0.8 K/mcL (0.0-1.3); Neutrophils # 5.4 K/mcL (1.6-8.9); Platelet Count 377 K/mcL (140-400); Red Blood Count 3.84 M/mcL (3.82-4.97); Segmented Neutrophils % 64.9 %
[2018-04-19 06:10] LABS: Alanine Aminotransferase 32 Units/L (7-52); Albumin 3.5 g/dL (3.5-5.7); Albumin/Globulin Ratio 1.6 (1.1-2.2); Alkaline Phosphatase 55 Units/L (34-104); Aspartate Amino Transferase 17 Units/L (13-39); BUN/Creatinine Ratio 40 (6-26); Bilirubin,Total 0.3 mg/dL (0.3-1.0); Blood Urea Nitrogen 23 mg/dL (8-23); Calcium 9.1 mg/dL (8.6-10.3); Carbon Dioxide 31 mEq/L (23-29); Chloride 103 mEq/L (98-107); Globulin 2.2 g/dL (2.4-3.5); Glucose 113 mg/dL (70-105); Osmolality,Calculated 296 (280-300); Potassium 3.7 mEq/L (3.5-5.1); Sodium 141 mEq/L (136-145); Total Protein 5.7 g/dL (6.4-8.9); eGFR For Non-African Americans > 60 (> 60)
[2018-04-19 06:43] LABS: Anisocytosis 1+ (Not Present)
[2018-04-19 06:44] LABS: Hypochromasia Present (Not Present); Microcytosis Present (Not Present); Ovalocytes 1+ (Not Present); Platelet Estimate Normal (Normal)
[2018-04-19] MEDS: Budesonide Neb 0.25 MG/2 ML IH SCH ×2 (07:21→20:00)
[2018-04-19] MEDS: Insulin LISPRO 300 UNITS/3 ML VIAL SQ SCH ×4 (08:47→22:07)
[2018-04-19] MEDS: Nitroglycerin 0.3 MG PATCH.TD24 TD SCH (08:49)
[2018-04-19] MEDS: Diltiazem CD (24hr) 120 MG CAPSULE PO SCH ×2 (08:50→22:06)
[2018-04-19] MEDS: Cholecalciferol (D-3) 1,000 UNIT TABLET PO SCH (08:50)
[2018-04-19] MEDS: Aspirin Enteric Coated 81 MG Tablet PO SCH (08:50)
[2018-04-19] MEDS: Furosemide 20 MG TABLET PO SCH (08:50)
[2018-04-19] MEDS: Loratadine 10 MG TABLET PO SCH (08:50)
[2018-04-19] MEDS: predniSONE 20 MG TABLET PO SCH (08:50)
[2018-04-19] MEDS ORDERED: Isosorbide MONOnitrate (24 HR) 60 MG TAB.ER.24H PO SCH (09:00)
[2018-04-19] MEDS ORDERED: Ipratropium/Albuterol Neb 3 ML IH ONE (12:11)
[2018-04-19] MEDS ORDERED: Isovue-370 500 ML INFUS..BTL IV ONE (12:15)
--- NOTE | 2018-04-19 13:30 | Internal Med Progress Note ---
<Tono Henley - Last Filed: 04/19/18 13:40> Hospitalist Progress Note - Encounter Date of Encounter: 04/19/18 - Exam Vitals: Temp Pulse Resp BP Pulse Ox 97.9 F 77 20 146/59 86 04/19/18 11:21 04/19/18 11:21 04/19/18 11:30 04/19/18 11:21 04/19/18 11:30 - Assessment and Plan (1) Acute and chronic respiratory failure with hypoxia Current Visit: Yes Status: Acute (2) Bilateral pneumonia Current Visit: No Status: Suspected (3) Acute exacerbation of chronic obstructive pulmonary disease (COPD) Current Visit: No Status: Acute (4) Diabetes mellitus Current Visit: No Status: Chronic (5) Coronary artery disease Current Visit: No Status: Chronic (6) Paroxysmal atrial fibrillation Current Visit: No Status: Chronic (7) Chronic diastolic CHF (congestive heart failure) Current Visit: Yes Status: Chronic - Time Spent with Patient Total time spent is greater than 50% in coordination of care (as documented) at patient's floor/unit and/or counseling patient: Internal Medicine: Result - Labs CBC & Chem 7: 04/19/18 05:01 04/19/18 05:01 Labs: Short CBC 04/19/18 Range/Units 05:01 WBC 8.3 (4.3-11.1) K/mcL Hgb 8.1 L (11.5-15.4) g/dL Hct 28.0 L (35.3-44.9) % Plt Count 377 (140-400) K/mcL Neutrophils # 5.4 (1.6-8.9) K/mcL BMP 04/19/18 05:01 Sodium 141 Potassium 3.7 Chloride 103 Carbon Dioxide 31 H BUN 23 Creatinine 0.58 L Glucose 113 H Calcium 9.1 Liver Function 04/19/18 Range/Units 05:01 Total Bilirubin 0.3 (0.3-1.0) mg/dL AST 17 (13-39) Units/L ALT 32 (7-52) Units/L Alkaline Phosphatase 55 (34-104) Units/L Albumin 3.5 (3.5-5.7) g/dL - ABG Interpretation ABG results: PT/INR, D-dimer PT 23.0 Seconds (9.4-12.1) H 04/19/18 05:01 - Impressions Impressions Chest CTA 04/19/18 12:15 IMPRESSION: No evidence of pulmonary embolism or acute pulmonary abnormality. Redemonstration of emphysema, lower lobe scarring and minimal nodularity right upper lobe which is pleural-based. No evidence of pleural disease. No evidence of adenopathy. Redemonstration of left mastectomy and axillary node dissection. D/ / 04/19/2018 13:25:14 Krista Gong MD / sabrina Interpreting Provider: Krista Gong MD Consult Discharge Plan - Plan Referrals: Justice Tapia MD [Primary Care Provider] - - Attending Attestation I examined this patient and my medical decision-making was reviewed with the Resident Physician on 04/19/18. I agree with the documented findings, disposition and treatment plan as described except to the extent set forth below. Ms Rodas is currently admitted for acute resp failure due to COPD and presumed PNA. She had worsening dyspnea today. She remains moderate to high risk due to potential for worsening clinical status. Ms Rodas had CP last night but only had scheduled Imdur once daily and she takes BID. Today she walked to bathroom and developed severe dyspnea and became hypox ic. No fever or chills. No CP now. Had to increase oxygen today. Exam alert Moderate dyspnea at rest Mucus membranes dry Heart not tachy at this time Rhonchi EARLINE area. Wheezing heard bilaterally. Abd soft and nontender No edema noted I/P 1. Resp failure - worsening symptoms this AM. CTA ordered (prior PE but said she was on coumadin at that time too). Continue aerosols, steroids, abx. Add azithromycin today. 2. COPD exacerbation - Further diagnoses and plan as above. <Naveed Darling - Last Filed: 04/19/18 15:42> Hospitalist Progress Note - Encounter Date of Encounter: 04/19/18 Time of Encounter: 13:30 - Subjective Interval History: Patient is an 82-year-old female with a past medical history of atrial fibrillation, congestive heart failure, COPD, CAD, diabetes mellitus, GERD, hypertension, pulmonary embolism, and cancer, anticoagulated on Coumadin requiring 2 L/m of oxygen via nasal cannula. Patient has significant history of heart disease stating that she has had 17 cardiac catheterizations and 5 stent placements. Patient wears 2 nitroglycerin patches at home for hypertension and unstable angina, patient is also on Imdur 90 mg BID. Was seen at [place] ED on March 30 for left lower lobe pneumonia with pleural effusion. It is noted in documentation during that encounter that the patient had previously failed outpatient treatment twice by that time. Patient was hospitalized for 6 days and was released on April 04 after receiving IV Rocephin and Zithromax while in hospital and discharged home with 5 days of oral Keflex. Patient again presented to [place] ED on April 15 due to increasing dyspnea and noted desaturations into the 80 percent range - requiring additional home oxygen use. Patient was found to have "left pleural effusion with bibasilar atelectasis and/or pneumonia, left greater than right" on chest x-ray and was transferred to [facility] for further evaluation and care. Upon evaluation this afternoon, patient is again sitting upright in hospital chair, she is well-dressed and well-groomed, awake, alert, pleasant, engaged to conversation and answering questions appropriately. Patient's is in room and acting as co-historian. Patient states that she had a bout of chest pain which occurred while running the bathroom last evening which required 2 doses of sublingual nitrogen-which alleviated her pain. Patient also states or getting up to go to the bathroom this morning that she experienced profound shortness of breath which required up to 14 L/m of oxygen by high flow nasal cannula. Patient states that she underwent a CTA of the chest this afternoon to look for pulmonary embolism. Patient has not yet had chest percussive therapy ordered yesterday. The patient admits to dizziness during episode of dyspnea earlier today, patient admits to intermittent minor headaches, she admits to continued neck and back p ain which are well-managed on when necessary Tylenol, she admits to severe shortness of breath. Patient denies vision change, tinnitus, chest pain, abdominal pain/nausea/vomiting, difficulty with ambulation, or paresthesias. - Exam Vitals: Temp Pulse Resp BP Pulse Ox 97.9 F 77 20 146/59 86 04/19/18 11:21 04/19/18 11:21 04/19/18 11:30 04/19/18 11:21 04/19/18 11:30 Exam: Constitutional: Patient sitting upright in chair, awake, alert, pleasant, engaged to conversation, answers questions appropriately. HEENT: Atraumatic, normocephalic, PERRL, EOMI, non-icteric sclera. CV: RRR, S1 + S2, no murmurs, gallops, or rubs appreciated. Resp: Coarse rhonchi in RIGHT lung base, faint crackles appreciated in left lung base, otherwise clear to auscultation bilaterally. Abd: Soft, rotund, non-tender, non-distended, no guarding or rebound appreciated. Skin: Warm, dry, intact. Extremities: Moves all 4 extremities spontaneously. - Assessment and Plan (1) Bilateral pneumonia Current Visit: No Status: Suspected (2) Acute exacerbation of chronic obstructive pulmonary disease (COPD) Current Visit: No Status: Acute (3) Diabetes mellitus Current Visit: No Status: Chronic (4) Coronary artery disease Current Visit: No Status: Chronic (5) Paroxysmal atrial fibrillation Current Visit: No Status: Chronic (6) Anticoagulated on Coumadin Current Visit: No Status: Chronic (7) Acute low back pain Current Visit: No Status: Acute (8) Chronic diastolic CHF (congestive heart failure) Current Visit: Yes Status: Chronic DVT Prophylaxis: Coumadin 4 mg by mouth daily - Summary of Assessment and Plan Summary of Assessment and Plan: (1) Bilateral pneumonia Current Visit: No Status: Suspected Assessment and Plan: Patient found to have bilateral lower lobe infiltrate with a left pleural effusion at [place] [facility] Patient is currently expressing productive cough of scant thick, rubbery mucous- feels as though she is unable to cough up mucus secretions Patient noted to be experiencing increasing dyspnea With provider in room, patient was satting in the low 90% range on 8 L/m via high flow nasal cannula CTA of the chest shows no acute pathology Plan: Continue IV cefepime (day 5) Continue Mucinex and Mucomyst (day 3) + chest percussion plus a cappella (2) Acute exacerbation of chronic obstructive pulmonary disease (COPD) Current Visit: No Status: Acute Assessment and Plan: Patient with known history of COPD Plan: As above Continue prednisone 40 mg by mouth daily Continue DuoNeb plus Pulmicort nebs (3) Diabetes mellitus Current Visit: No Status: Chronic Assessment and Plan: Patient with known history of diabetes mellitus type 2 Patient is on corrective low-dose sliding scale insulin regimen Glucose is well-managed in-hospital. Noted to be 113 at last check Plan: Continue sliding scale insulin Continue ADA diet Continue to monitor glucose (4) Coronary artery disease Current Visit: No Status: Chronic Assessment and Plan: Patient with known past medical history of CAD Has had 17 heart catheterizations with 5 stents placed Initial Troponin on 04/15 negative at less than 0.03 - will repeat in setting of increased dyspnea Plan: Continue home nitroglycerin sublingual and transdermal + Imdur dose changed from 90 mg daily to 90 mg twice a day + Repeat Troponins + Add EKG evaluation Patient will follow up with cardiology as outpatient (5) Paroxysmal atrial fibrillation Current Visit: No Status: Chronic Assessment and Plan: Heart rate is currently 77 and regular Plan: Continue rate control with home sotalol and cardizem (6) Anticoagulated on Coumadin Current Visit: No Status: Chronic Assessment and Plan: Patient anticoagulation with Coumadin for the treatment of atrial fibrillation Plan: Patient INR is currently therapeutic at 2.0 Continue to monitor (7) Acute low back pain Current Visit: No Status: Acute Assessment and Plan: Patient states that she uses Tylenol at home for pain management Plan: Patient states her pain is currently well-managed on 650 mg Tylenol every 6 hours when necessary Continue to monitor (8) Chronic diastolic CHF (congestive heart failure) Current Visit: Yes Status: Chronic Assessment and Plan: Continue home medications - Time Spent with Patient Total time spent is greater than 50% in coordination of care (as documented) at patient's floor/unit and/or counseling patient: Internal Medicine: Result - Labs CBC & Chem 7: 04/19/18 05:01 04/19/18 05:01 Labs: Short CBC 04/19/18 Range/Units 05:01 WBC 8.3 (4.3-11.1) K/mcL Hgb 8.1 L (11.5-15.4) g/dL Hct 28.0 L (35.3-44.9) % Plt Count 377 (140-400) K/mcL Neutrophils # 5.4 (1.6-8.9) K/mcL BMP 04/19/18 05:01 Sodium 141 Potassium 3.7 Chloride 103 Carbon Dioxide 31 H BUN 23 Creatinine 0.58 L Glucose 113 H Calcium 9.1 Liver Function 04/19/18 Range/Units 05:01 Total Bilirubin 0.3 (0.3-1.0) mg/dL AST 17 (13-39) Units/L ALT 32 (7-52) Units/L Alkaline Phosphatase 55 (34-104) Units/L Albumin 3.5 (3.5-5.7) g/dL - ABG Interpretation ABG results: PT/INR, D-dimer PT 23.0 Seconds (9.4-12.1) H 04/19/18 05:01 - Impressions Impressions Chest CTA 04/19/18 12:15 IMPRESSION: No evidence of pulmonary embolism or acute pulmonary abnormality. Redemonstration of emphysema, lower lobe scarring and minimal nodularity right upper lobe which is pleural-based. No evidence of pleural disease. No evidence of adenopathy. Redemonstration of left mastectomy and axillary node dissection. D/ / 04/19/2018 13:25:14 Krista Gong MD / sabrina Interpreting Provider: Krista Gong MD <Tono Henley - Last Filed: 04/19/18 13:40> (2) Bilateral pneumonia Qualifiers: Pneumonia type: due to other aerobic Gram-negative bacteria Lung location: lower lobe of lung Qualified Code(s): J15.6 - Pneumonia due to other Gram- negative bacteria (4) Diabetes mellitus Qualifiers: Diabetes mellitus type: type 2 Diabetes mellitus predatory animal exterminator insulin use: without predatory animal exterminator use Diabetes mellitus complication status: with hyperglycemia Qualified Code(s): E11.65 - Type 2 diabetes mellitus with hyperglycemia (5) Coronary artery disease Qualifiers: Coronary Disease-Associated Artery/Lesion type: [place] artery [place] vs. transplanted heart: [place] heart Associated angina: with stable angina Qualified Code(s): I25.118 - Atherosclerotic heart disease of [place] coronary artery with other forms of angina pectoris <Naveed Darling - Last Filed: 04/19/18 15:42> (1) Bilateral pneumonia Qualifiers: Pneumonia type: due to other aerobic Gram-negative bacteria Lung location: lower lobe of lung Qualified Code(s): J15.6 - Pneumonia due to other Gram- negative bacteria (3) Diabetes mellitus Qualifiers: Diabetes mellitus type: type 2 Diabetes mellitus [facility] insulin use: without predatory animal exterminator use Diabetes mellitus complication status: with hyperglycemia Qualified Code(s): E11.65 - Type 2 diabetes mellitus with hyperglycemia (4) Coronary artery disease Qualifiers: Coronary Disease-Associated Artery/Lesion type: [place] artery [place] vs. transplanted heart: [place] heart Associated angina: with stable angina Qualified Code(s): I25.118 - Atherosclerotic heart disease of [place] coronary artery with other forms of angina pectoris (7) Acute low back pain Qualifiers: Back pain laterality: right Sciatica presence: without sciatica Qualified Code(s): M54.5 - Low back pain
[2018-04-19] MEDS ORDERED: Furosemide 40 MG/4 ML VIAL IVP ONE (15:33)
[2018-04-19] MEDS: *HR* Warfarin 4 MG TABLET PO SCH (16:37)
[2018-04-19] MEDS: Isosorbide MONOnitrate (24 HR) 60 MG TAB.ER.24H PO SCH (22:05)
[2018-04-19] MEDS: (Ezetimibe [Zetia] 10 MG) PO SCH (22:07)
[2018-04-19] MEDS: Latanoprost 2.5 ML BOTTLE BOTH EYES SCH (22:07)
[2018-04-20] MEDS: Cefepime HCl 1,000 MG in Water for inj. (sterile) 20 ML 10 ML IVP SCH ×3 (00:50→16:48)
[2018-04-20] MEDS: Ipratropium/Albuterol Neb 3 ML IH SCH ×4 (04:49→15:28)
[2018-04-20 05:15] LABS: Basophils % 0.1 %; Monocytes % 9.9 %
[2018-04-20 05:17] LABS: Eosinophils % 0.2 %; Hematocrit 27.2 % (35.3-44.9); Hemoglobin 7.9 g/dL (11.5-15.4); Immature Granulocytes % 0.8 % (0-4); Lymphocytes # 2.5 K/mcL (0.6-4.6); Lymphocytes % 24.7 %; Mean Corpuscular Hemoglobin 21.2 pg (28.0-33.3); Mean Corpuscular Volume 72.9 fL (83.0-100.0); Nucleated Red Blood Cells 0.2 /100 WBC (0); Platelet Count 400 K/mcL (140-400); Red Blood Count 3.73 M/mcL (3.82-4.97); Segmented Neutrophils % 64.3 %
[2018-04-20 05:18] LABS: Neutrophils # 6.4 K/mcL (1.6-8.9)
[2018-04-20 05:37] LABS: Alanine Aminotransferase 33 Units/L (7-52); Albumin 3.5 g/dL (3.5-5.7); Albumin/Globulin Ratio 1.8 (1.1-2.2); Alkaline Phosphatase 53 Units/L (34-104); Aspartate Amino Transferase 15 Units/L (13-39); BUN/Creatinine Ratio 52 (6-26); Bilirubin,Total 0.4 mg/dL (0.3-1.0); Blood Urea Nitrogen 26 mg/dL (8-23); Carbon Dioxide 33 mEq/L (23-29); Chloride 102 mEq/L (98-107); Glucose 102 mg/dL (70-105); Osmolality,Calculated 297 (280-300); Potassium 3.5 mEq/L (3.5-5.1); Sodium 141 mEq/L (136-145); Total Protein 5.5 g/dL (6.4-8.9); eGFR For Non-African Americans > 60 (> 60)
[2018-04-20 05:42] LABS: INR 2.2
[2018-04-20 05:45] LABS: Anisocytosis 2+ (Not Present); Hypochromasia Present (Not Present); Microcytosis Present (Not Present); Platelet Estimate Increased (Normal)
[2018-04-20] MEDS: Budesonide Neb 0.25 MG/2 ML IH SCH (07:20)
[2018-04-20] MEDS: Insulin LISPRO 300 UNITS/3 ML VIAL SQ SCH ×3 (07:21→16:49)
[2018-04-20] MEDS: Diltiazem CD (24hr) 120 MG CAPSULE PO SCH (07:27)
[2018-04-20] MEDS: predniSONE 20 MG TABLET PO SCH (07:28)
[2018-04-20] MEDS: Nitroglycerin 0.3 MG PATCH.TD24 TD SCH (07:28)
[2018-04-20] MEDS: Aspirin Enteric Coated 81 MG Tablet PO SCH (07:28)
[2018-04-20] MEDS: Furosemide 20 MG TABLET PO SCH (07:28)
[2018-04-20] MEDS: Isosorbide MONOnitrate (24 HR) 60 MG TAB.ER.24H PO SCH (07:28)
[2018-04-20] MEDS: Cholecalciferol (D-3) 1,000 UNIT TABLET PO SCH (07:28)
[2018-04-20] MEDS: Loratadine 10 MG TABLET PO SCH (07:28)
--- NOTE | 2018-04-20 10:51 | Internal Med Progress Note ---
<Naveed Darling - Last Filed: 04/20/18 11:02> Hospitalist Progress Note - Encounter Date of Encounter: 04/20/18 Time of Encounter: 10:44 - Subjective Interval History: Patient is an 82-year-old female with a past medical history of atrial fibrillation, congestive heart failure, COPD, CAD, diabetes mellitus, GERD, h ypertension, pulmonary embolism, and cancer, anticoagulated on Coumadin requiring 2 L/m of oxygen via nasal cannula. Patient has significant history of heart disease stating that she has had 17 cardiac catheterizations and 5 stent placements. Patient wears 2 nitroglycerin patches at home for hypertension and unstable angina, patient is also on Imdur 90 mg BID. Was seen at [facility] on March 30 for left lower lobe pneumonia with pleural effusion. It is noted in documentation during that encounter that the patient had previously failed outpatient treatment twice by that time. Patient was hospitalized for 6 days and was released on April 04 after receiving IV Rocephin and Zithromax while in hospital and discharged home with 5 days of oral Keflex. Patient again presented to [facility] ED on April 15 due to increasing dyspnea and noted desaturations into the 80 percent range - requiring additional home oxygen use. Patient was found to have "left pleural effusion with bibasilar atelectasis and/or pneumonia, left greater than right" on chest x-ray and was transferred to [facility] for further evaluation and care. Upon evaluation this A.M., patient is again sitting upright in hospital chair, she is well-dressed and well-groomed, awake, alert, pleasant, engaged to conversation and answering questions appropriately. Patient's is with her in room. Patient states that she feels much better today and denies any acute events since last evaluation. Patient reports that flutter valve with nebulizer therapy is helping her to cough up the congestion in her lungs - which she describes as a whitish-yellow sputum with one episode of thick, rubbery mucus. The patient admits to continued neck and back pain which are well-managed on when necessary Tylenol, as well as constipation since Wednesday, which she states she will treat with sugar-free hard candy as per her usual experience. Patient denies headache, admits to some "flashes" in her visual belcher but states that this is consistent with her history of macular degeneration and glaucoma. Patient denies other vision change, eye pain, or halos around lights. She denies tinnitus, chest pain/SOB, abdominal pain/nausea/vomiting, difficulty with ambulation, or paresthesias. The patient states that she would like to go home, but wants to make sure that she is healthy enough to not have to come back. - Exam Vitals: Temp Pulse Resp BP Pulse Ox 97.4 F L 78 16 154/62 98 04/20/18 06:36 04/20/18 06:36 04/20/18 07:20 04/20/18 06:36 04/20/18 07:20 Exam: Constitutional: Patient sitting upright in chair, awake, alert, pleasant, engaged to conversation, answers questions appropriately. HEENT: Atraumatic, normocephalic, EOMI, non-icteric sclera. CV: RRR, S1 + S2, no murmurs, gallops, or rubs appreciated, no pedal edema. Resp: Coarse rhonchi in RIGHT lung base, faint crackles appreciated in left lung base, otherwise clear to auscultation bilaterally. Abd: Soft, rotund, full, non-tender, non-distended, no guarding or rebound appreciated. Skin: Warm, dry, intact. Extremities: Moves all 4 extremities spontaneously. - Assessment and Plan (1) Bilateral pneumonia Status: Suspected (2) Acute exacerbation of chronic obstructive pulmonary disease (COPD) Status: Acute (3) Diabetes mellitus Status: Chronic (4) Coronary artery disease Status: Chronic (5) Paroxysmal atrial fibrillation Status: Chronic (6) Anticoagulated on Coumadin Status: Chronic (7) Acute low back pain Status: Acute (8) Chronic diastolic CHF (congestive heart failure) Status: Chronic DVT Prophylaxis: Coumadin by mouth daily - Summary of Assessment and Plan Summary of Assessment and Plan: (1) Bilateral pneumonia Current Visit: No Status: Suspected Assessment and Plan: Patient found to have bilateral lower lobe infiltrate with a left pleural effusion at [facility] Patient experienced desaturations into the 80% range along with severe dyspnea on April 19 and required additional oxygen up to 14 L/m which was decreased to 8 L/m on high flow O2 for the majority of the day CTA of the chest showed no acute pathology Patient stated that she felt that she was unable to cough up congestion in her lungs In addition to Mucinex/Mucomyst, patient was started on physiotherapy via a flutter valve with scheduled nebulizer treatment Patient responded well to these treatments and states that she feels much better today and is beginning to cough a whitish-yellow sputum Plan: Continue IV cefepime (day 6) Continue Mucinex (day 4) Continue flutter valve with scheduled nebulizer treatments -Discontinue acetylcysteine (2) Acute exacerbation of chronic obstructive pulmonary disease (COPD) Current Visit: No Status: Acute Assessment and Plan: Patient with known history of COPD Plan: As above Continue prednisone 40 mg by mouth daily Continue Pulmicort nebs along with flutter valve + Continue to wean patient to home oxygen level + Ambulate patient with oxygen -Discontinue DuoNeb's (3) Diabetes mellitus Current Visit: No Status: Chronic Assessment and Plan: Patient with known history of diabetes mellitus type 2 Patient is on corrective low-dose sliding scale insulin regimen Glucose is well-managed in-hospital. Noted to be 102 at last check Plan: Continue sliding scale insulin Continue ADA diet Continue to monitor glucose (4) Coronary artery disease Current Visit: No Status: Chronic Assessment and Plan: Patient with known past medical history of CAD Has had 17 heart catheterizations with 5 stents placed Patient reported chest pain which required 2 sublingual nitrogen administrations subsequently relieving her symptoms on April Patient with severe dyspnea noted desaturations into the 80% range requiring increased oxygen on April 19 Initial Troponin on 04/15 negative at less than 0.03 - repeated in setting of increased dyspnea on April 19 and again found to be less than 0.03 EKG was performed and shows an electronically ventricular paced rhythm with no acute abnormalities Plan: Continue home nitroglycerin sublingual and transdermal Continue Imdur 90 mg twice a day Patient will follow up with cardiology as outpatient (5) Paroxysmal atrial fibrillation Current Visit: No Status: Chronic Assessment and Plan: Heart rate is currently 78 and regular at last check Plan: Continue rate control with home sotalol and cardizem (6) Anticoagulated on Coumadin Current Visit: No Status: Chronic Assessment and Plan: Patient anticoagulation with Coumadin for the treatment of atrial fibrillation Plan: Patient INR is currently therapeutic at 2.2 Continue to monitor (7) Acute low back pain Current Visit: No Status: Acute Assessment and Plan: Patient states that she uses Tylenol at home for pain management Plan: Patient states her pain is currently well-managed on 650 mg Tylenol every 6 hours when necessary Continue to monitor (8) Chronic diastolic CHF (congestive heart failure) Current Visit: Yes Status: Chronic Assessment and Plan: Continue home medications - Time Spent with Patient Total time spent is greater than 50% in coordination of care (as documented) at patient's floor/unit and/or counseling patient: Internal Medicine: Result - Labs CBC & Chem 7: 04/20/18 04:00 04/20/18 04:00 Labs: Short CBC 04/20/18 Range/Units 04:00 WBC 10.0 (4.3-11.1) K/mcL Hgb 7.9 L (11.5-15.4) g/dL Hct 27.2 L (35.3-44.9) % Plt Count 400 (140-400) K/mcL Neutrophils # 6.4 (1.6-8.9) K/mcL BMP 04/20/18 04:00 Sodium 141 Potassium 3.5 Chloride 102 Carbon Dioxide 33 H BUN 26 H Creatinine 0.50 L Glucose 102 Calcium 9.0 Cardiac Enzymes 04/19/18 Range/Units 15:56 Troponin I < 0.03 (< 0.04) ng/mL Liver Function 04/20/18 Range/Units 04:00 Total Bilirubin 0.4 (0.3-1.0) mg/dL AST 15 (13-39) Units/L ALT 33 (7-52) Units/L Alkaline Phosphatase 53 (34-104) Units/L Albumin 3.5 (3.5-5.7) g/dL - ABG Interpretation ABG results: PT/INR, D-dimer PT 25.0 Seconds (9.4-12.1) H 04/20/18 04:00 - Impressions Impressions Chest CTA 04/19/18 12:15 IMPRESSION: No evidence of pulmonary embolism or acute pulmonary abnormality. Redemonstration of emphysema, lower lobe scarring and minimal nodularity right upper lobe which is pleural-based. No evidence of pleural disease. No evidence of adenopathy. Redemonstration of left mastectomy and axillary node dissection. D/ / 04/19/2018 13:25:14 Krista Gong MD / sabrina Interpreting Provider: Krista Gong MD Consult Discharge Plan - Plan Instructions: Heart Failure (DC), Atrial Fibrillation (DC), Chest Pain (DC), Asthma (DC), Acute Respiratory Distress Syndrome (DC), Diabetes Mellitus Type 2 in Adults (DC), Chronic Obstructive Pulmonary Disease (DC), Anemia (GEN), Pneumonia (DC) Referrals: Justice Tapia MD [Primary Care Provider] - 04/27/18 1:30 pm Prescriptions: RX: predniSONE [PredniSONE] See Taper PO DAILY 7 Days #9 tablet <Henry Gamble - Last Filed: 04/21/18 08:22> Hospitalist Progress Note - Encounter Date of Encounter: 04/21/18 - Exam Vitals: Temp Pulse Resp BP Pulse Ox 97.8 F 89 16 150/66 97 04/20/18 15:12 04/20/18 15:12 04/20/18 15:28 04/20/18 15:12 04/20/18 15:28 - Assessment and Plan (1) Bilateral pneumonia Status: Suspected (2) Acute exacerbation of chronic obstructive pulmonary disease (COPD) Status: Acute (3) Diabetes mellitus Status: Chronic (4) Coronary artery disease Status: Chronic (5) Paroxysmal atrial fibrillation Status: Chronic (6) Acute and chronic respiratory failure with hypoxia Status: Acute (7) Chronic diastolic CHF (congestive heart failure) Status: Chronic - Time Spent with Patient Total time spent is greater than 50% in coordination of care (as documented) at patient's floor/unit and/or counseling patient: Internal Medicine: Result - Labs CBC & Chem 7: 04/20/18 04:00 04/20/18 04:00 - ABG Interpretation ABG results: PT/INR, D-dimer PT 25.0 Seconds (9.4-12.1) H 04/20/18 04:00 - Attending Attestation I examined this patient and my medical decision-making was reviewed with the Resident Physician. I agree with the documented findings, disposition and treatment plan as described except to the extent set forth below. <Naveed Darling - Last Filed: 04/20/18 11:02> (1) Bilateral pneumonia Qualifiers: Pneumonia type: due to other aerobic Gram-negative bacteria Lung location: lower lobe of lung Qualified Code(s): J15.6 - Pneumonia due to other Gram- negative bacteria (3) Diabetes mellitus Qualifiers: Diabetes mellitus type: type 2 Diabetes mellitus terminal operator insulin use: without long-term use Diabetes mellitus complication status: with hyperglycemia Qualified Code(s): E11.65 - Type 2 diabetes mellitus with hyperglycemia (4) Coronary artery disease Qualifiers: Coronary Disease-Associated Artery/Lesion type: [place] artery [place] vs. transplanted heart: [place] heart Associated angina: with stable angina Qualified Code(s): I25.118 - Atherosclerotic heart disease of [place] coronary artery with other forms of angina pectoris (7) Acute low back pain Qualifiers: Back pain laterality: right Sciatica presence: without sciatica Qualified Code(s): M54.5 - Low back pain <Henry Gamble - Last Filed: 04/21/18 08:22> (1) Bilateral pneumonia Qualifiers: Pneumonia type: due to other aerobic Gram-negative bacteria Lung location: lower lobe of lung Qualified Code(s): J15.6 - Pneumonia due to other Gram- negative bacteria (3) Diabetes mellitus Qualifiers: Diabetes mellitus type: type 2 Diabetes mellitus terminal operator insulin use: wit hout terminal operator use Diabetes mellitus complication status: with hyperglycemia Qualified Code(s): E11.65 - Type 2 diabetes mellitus with hyperglycemia (4) Coronary artery disease Qualifiers: Coronary Disease-Associated Artery/Lesion type: [place] artery [place] vs. transplanted heart: [place] heart Associated angina: with stable angina Qualified Code(s): I25.118 - Atherosclerotic heart disease of [place] coronary artery with other forms of angina pectoris
[2018-04-20 15:22] VITALS: BP 150/66
[2018-04-20] MEDS: *HR* Warfarin 4 MG TABLET PO SCH (16:47)
--- NOTE | 2018-04-20 16:51 | Discharge Summary ---
<JadenclarkNaveed - Last Filed: 04/20/18 16:44> Orders not resulted at time of discharge: Pending orders 04/21/18 04:00 CBC [Complete Blood Count] [HEME] AM 0400 CMP [Comprehensive Metabolic Panel] AM 0400 INR/PT [Prothrombin Time INR] [COAG] AM 0400 Date of Encounter: 04/20/18 Time of Encounter: 16:44 - Discharge Diagnosis (1) Bilateral pneumonia Priority: Primary Status: Suspected Qualifiers: Pneumonia type: due to other aerobic Gram-negative bacteria Lung location: lower lobe of lung Qualified Code(s): J15.6 - Pneumonia due to other Gram- negative bacteria (2) Acute exacerbation of chronic obstructive pulmonary disease (COPD) Priority: Primary Status: Acute (3) Diabetes mellitus Priority: Secondary Status: Chronic Qualifiers: Diabetes mellitus type: type 2 Diabetes mellitus assisted insulin use: without assisted use Diabetes mellitus complication status: with hyperglycemia Qualified Code(s): E11.65 - Type 2 diabetes mellitus with hyperglycemia (4) Coronary artery disease Priority: Secondary Status: Chronic Qualifiers: Coronary Disease-Associated Artery/Lesion type: [place] artery [place] vs. transplanted heart: [place] heart Associated angina: with stable angina Qualified Code(s): I25.118 - Atherosclerotic heart disease of [place] coronary artery with other forms of angina pectoris (5) Paroxysmal atrial fibrillation Priority: Secondary Status: Chronic (6) Anticoagulated on Coumadin Priority: Secondary Status: Chronic (7) Acute low back pain Priority: Secondary Status: Acute Qualifiers: Back pain laterality: right Sciatica presence: without sciatica Qualified Code(s): M54.5 - Low back pain (8) Chronic diastolic CHF (congestive heart failure) Priority: Secondary Status: Chronic Hospital course: Ms. Rodas is a 82 year old female with a past medical history of atrial fibrillation, congestive heart failure, COPD, CAD, diabetes mellitus, GERD, hypertension, pulmonary embolism, and cancer, anticoagulated on Coumadin requiring 2 L/m of oxygen via nasal cannula. Patient has significant history of heart disease stating that she has had 17 cardiac catheterizations and 5 stent placements. Patient wears 2 nitroglycerin patches at home for hypertension and unstable angina, patient is also on Imdur 90 mg BID. Was seen at [facility] on March 30 for left lower lobe pneumonia with pleural effusion. It is noted in documentation during that encounter that the patient had previously failed outpatient treatment twice by that time. Patient was hospitalized for 6 days and was released on April 04 after receiving IV Rocephin and Zithromax while in hospital and discharged home with 5 days of oral Keflex. Patient again presented to [facility] on April 15 due to increasing dyspnea and noted desaturations into the 80 percent range - requiring additional home oxygen use. Patient was found to have "left pleural effusion with bibasilar atelectasis and/or pneumonia, left greater than right" on chest x-ray and was transferred to [facility] for further evaluation and care. On Hospital patient completed a 6 day course of cefepime for antibiotic coverage for pneumonia Patient received 4 days of Mucinex and Mucomyst therapy + scheduled DuoNeb nebs, as well as flutter valve physiotherapy for the past 2 days Patient had an episode of chest pain on April 18 which responded to 2 sublingual nitroglycerin April 19 patient was noted to have increasing dyspnea with hypoxia requiring higher oxygen administration CTA of the chest was found to be negative for acute pathology, troponins were less than 0.03 and EKG was negative for acute process. Patient be discharged home on prednisone 40 mg daily with taper instructions Patient will require higher home oxygen administration at 3 L/m at all times. Patient will follow-up with cardiology as outpatient within the next week Discharge planning was discussed at length with the patient and her and both verbalized their understanding and agreement with this plan. Patient is hemodynamically stable at time of discharge. Discharge discussed with: patient, family, social work - Time Spent with Patient Total time spent providing and/or coordinating discharge services: - Discharge Medications Prescriptions: RX: predniSONE [PredniSONE] See Taper PO DAILY 7 Days #9 tablet Home Medications: RX: Albuterol Sulfate [Albuterol Inhaler] 2 puff IH Q4H PRN 11/28/14 [History] RX: Alendronate Sodium 70 mg PO QWEEK 11/28/14 [History] RX: Atorvastatin [Lipitor] 80 mg PO HS 11/28/14 [History] RX: Calcium Carbonate/Vitamin D3 [Calcium 250+D Tablet] 1 each PO BID 11/28/14 [History] RX: Clopidogrel [Plavix] 75 mg PO DAILY 11/28/14 [History] RX: Ezetimibe [Zetia] 10 mg PO HS 11/28/14 [History] RX: Formoterol Fumarate [Perforomist] 20 mcg IH BID 11/28/14 [History] RX: Furosemide [Lasix] 20 mg PO DAILY 11/28/14 [History] RX: GlipiZIDE [Glucotrol] 5 mg PO BIDWM 11/28/14 [History] RX: Nitroglycerin 0.2 mg TD DAILY 11/28/14 [History] RX: Sotalol HCl [Betapace] 120 mg PO BID 11/28/14 [History] RX: Warfarin [Coumadin] 8 mg PO DAILY 02/23/15 [History] RX: Cholecalciferol (D-3) [Vitamin D] 1,000 unit PO DAILY 04/28/16 [History] RX: Diltiazem CD (24hr) [Cardizem CD] 120 mg PO BID 04/28/16 [History] RX: Isosorbide MONOnitrate (24 HR) [Imdur] 60 mg PO BID 04/28/16 [History] RX: Esomeprazole Magnesium [Nexium] 40 mg PO DAILY 06/01/16 [History] RX: Fish Oil/Dha/Epa [Fish Oil 1,200 mg Fish Oil] 2 each PO DAILY 06/01/16 [History] RX: Tiotropium [Spiriva] 18 mcg IH DAILY 08/24/17 [History] RX: Aspirin [Lo-Dose Aspirin EC] 81 mg PO DAILY 01/18/18 [History] RX: Cyanocobalamin/Folic AC/Vit B6 [Folbic Tablet] 1 each PO DAILY 01/18/18 [History] RX: Budesonide Neb [Pulmicort Neb] 0.25 mg IH BIDR 03/30/18 [History] RX: Nitroglycerin 0.1 mg TD DAILY 03/30/18 [History] RX: Acetaminophen [Tylenol] 650 mg PO Q6HR PRN tablet 04/04/18 [Rx] RX: Potassium Chloride 10 meq PO BIDWM #60 tab.er.prt 04/04/18 [Rx] RX: Latanoprost [Xalatan] 1 drop OP HS 04/16/18 [History] RX: predniSONE [PredniSONE] See Taper PO DAILY 7 Days #9 tablet 04/20/18 [Rx] Allergies/Adverse Reactions: Allergy/AdvReac Type Severity Reaction Status Date / Time bacitracin Allergy Blister Verified 04/20/18 22:28 [From Neosporin ([id number])] cetirizine Allergy Confusion Verified 04/20/18 22:28 ciprofloxacin Allergy Difficulty Verified 04/20/18 22:28 Breathing codeine Allergy Drowsy Verified 04/20/18 22:28 diazepam [From Valium] Allergy See Verified 04/20/18 22:28 Comments miconazole Allergy Blister Verified 04/20/18 22:28 [From Neosporin AF] Neomycin Allergy Blister Verified 04/20/18 22:28 Penicillins Allergy See Verified 04/20/18 22:28 Comments polymyxin B Allergy Blister Verified 04/20/18 22:28 promethazine [From Phenergan] Allergy See Verified 04/20/18 22:28 Comments ranolazine [From Ranexa] Allergy See Verified 03/23/18 17:06 Comments Sulfa (Sulfonamide Allergy Confusion Verified 08/24/17 05:53 Antibiotics) Date of admission: 04/15/18 09:17 Primary care physician: Justice Tapia MD Discharging clinician: Naveed Darling Anticipated date of discharge: 04/20/18 - Constitutional Vitals: Temp Pulse Resp BP Pulse Ox 97.8 F 89 16 150/66 97 04/20/18 15:12 04/20/18 15:12 04/20/18 15:28 04/20/18 15:12 04/20/18 15:28 General appearance: Present: cooperative, mild distress (With chest pain), A&O X 3, answers questions appropriately Exam: Constitutional: Patient sitting upright in chair, awake, alert, pleasant, engaged to conversation, answers questions appropriately. HEENT: Atraumatic, normocephalic, EOMI, non-icteric sclera. CV: RRR, S1 + S2, no murmurs, gallops, or rubs appreciated, no pedal edema. Resp: Coarse rhonchi in RIGHT lung base, faint crackles appreciated in left lung base, otherwise clear to auscultation bilaterally. Abd: Soft, rotund, full, non-tender, non-distended, no guarding or rebound appreciated. Skin: Warm, dry, intact. Extremities: Moves all 4 extremities spontaneously. - Patient Status Disposition: Home, Self-Care Condition: Good Functional capacity at discharge: independent ambulation Overall status at discharge: patient is progressing back to baseline - Discharge Instructions Instructions: Heart Failure (DC), Atrial Fibrillation (DC), Chest Pain (DC), Asthma (DC), Acute Respiratory Distress Syndrome (DC), Diabetes Mellitus Type 2 in Adults (DC), Chronic Obstructive Pulmonary Disease (DC), Anemia (GEN), Pneumonia (DC) Follow Up With: Justice Tapia MD [Primary Care Provider] - 04/27/18 1:30 pm - Diet and Activity Activity: increase activity as tolerated, wear oxygen at all times Diet: advance to your usual diet <Henry Gamble - Last Filed: 04/21/18 08:23> Date of Encounter: 04/21/18 - Discharge Diagnosis (1) Bilateral pneumonia Status: Suspected Qualifiers: Pneumonia type: due to other aerobic Gram-negative bacteria Lung location: lower lobe of lung Qualified Code(s): J15.6 - Pneumonia due to other Gram- negative bacteria (2) Acute exacerbation of chronic obstructive pulmonary disease (COPD) Status: Acute (3) Diabetes mellitus Status: Chronic Qualifiers: Diabetes mellitus type: type 2 Diabetes mellitus assisted insulin use: without assisted use Diabetes mellitus complication status: with hyperglycemia Qualified Code(s): E11.65 - Type 2 diabetes mellitus with hyperglycemia (4) Coronary artery disease Status: Chronic Qualifiers: Coronary Disease-Associated Artery/Lesion type: [place] artery [place] vs. transplanted heart: [place] heart Associated angina: with stable angina Qualified Code(s): I25.118 - Atherosclerotic heart disease of [place] coronary artery with other forms of angina pectoris (5) Paroxysmal atrial fibrillation Status: Chronic (6) Acute and chronic respiratory failure with hypoxia Status: Acute (7) Chronic diastolic CHF (congestive heart failure) Status: Chronic Hospital course: Ms. Rodas is a 82 year old female - Time Spent with Patient Total time spent providing and/or coordinating discharge services: Date of admission: 04/15/18 09:17 Primary care physician: Justice Tapia MD - Constitutional Vitals: Temp Pulse Resp BP Pulse Ox 97.8 F 89 16 150/66 97 04/20/18 15:12 04/20/18 15:12 04/20/18 15:28 04/20/18 15:12 04/20/18 15:28 - Attending Attestation I examined this patient and my medical decision-making was reviewed with the Resident Physician. I agree with the documented findings, disposition and treatment plan as described except to the extent set forth below.
--- NOTE | 2018-04-20 17:11 | Physician Discharge Referral ---
Home Health/Hosp Referral Info Transfer to: Home Health Attending Provider: Henry Gamble Provider in Charge Post Discharge: PCP - Diagnosis (1) Bilateral pneumonia Priority: Primary Status: Suspected (2) Acute exacerbation of chronic obstructive pulmonary disease (COPD) Priority: Primary Status: Acute (3) Diabetes mellitus Priority: Secondary Status: Chronic (4) Coronary artery disease Priority: Secondary Status: Chronic (5) Paroxysmal atrial fibrillation Priority: Secondary Status: Chronic (6) Anticoagulated on Coumadin Priority: Secondary Status: Chronic (7) Acute low back pain Priority: Secondary Status: Acute (8) Chronic diastolic CHF (congestive heart failure) Priority: Secondary Status: Chronic - Respiratory Orders Oxygen / L per min (3) Smoking Cessation: Smoking cessation has been advised. For more information, call the [employer] Tobacco Quit Line at 5-494-PEWW-NOW. - Diet/Nutrition Diet/Nutrition Orders: Cardiac - Activity Activity Orders: Up ad kris - Services Needed Following services are medically necessary services: Home Health Aide - Transfer Medications Prescriptions: RX: predniSONE [PredniSONE] See Taper PO DAILY 7 Days #9 tablet Home Medications: RX: Albuterol Sulfate [Albuterol Inhaler] 2 puff IH Q4H PRN 11/28/14 [History] RX: Alendronate Sodium 70 mg PO QWEEK 11/28/14 [History] RX: Atorvastatin [Lipitor] 80 mg PO HS 11/28/14 [History] RX: Calcium Carbonate/Vitamin D3 [Calcium 250+D Tablet] 1 each PO BID 11/28/14 [History] RX: Clopidogrel [Plavix] 75 mg PO DAILY 11/28/14 [History] RX: Ezetimibe [Zetia] 10 mg PO HS 11/28/14 [History] RX: Formoterol Fumarate [Perforomist] 20 mcg IH BID 11/28/14 [History] RX: Furosemide [Lasix] 20 mg PO DAILY 11/28/14 [History] RX: GlipiZIDE [Glucotrol] 5 mg PO BIDWM 11/28/14 [History] RX: Nitroglycerin 0.2 mg TD DAILY 11/28/14 [History] RX: Sotalol HCl [Betapace] 120 mg PO BID 11/28/14 [History] RX: Warfarin [Coumadin] 8 mg PO DAILY 02/23/15 [History] RX: Cholecalciferol (D-3) [Vitamin D] 1,000 unit PO DAILY 04/28/16 [History] RX: Diltiazem CD (24hr) [Cardizem CD] 120 mg PO BID 04/28/16 [History] RX: Isosorbide MONOnitrate (24 HR) [Imdur] 60 mg PO BID 04/28/16 [History] RX: Esomeprazole Magnesium [Nexium] 40 mg PO DAILY 06/01/16 [History] RX: Fish Oil/Dha/Epa [Fish Oil 1,200 mg Fish Oil] 2 each PO DAILY 06/01/16 [History] RX: Tiotropium [Spiriva] 18 mcg IH DAILY 08/24/17 [History] RX: Aspirin [Lo-Dose Aspirin EC] 81 mg PO DAILY 01/18/18 [History] RX: Cyanocobalamin/Folic AC/Vit B6 [Folbic Tablet] 1 each PO DAILY 01/18/18 [History] RX: Budesonide Neb [Pulmicort Neb] 0.25 mg IH BIDR 03/30/18 [History] RX: Nitroglycerin 0.1 mg TD DAILY 03/30/18 [History] RX: Acetaminophen [Tylenol] 650 mg PO Q6HR PRN tablet 04/04/18 [Rx] RX: Potassium Chloride 10 meq PO BIDWM #60 tab.er.prt 04/04/18 [Rx] RX: Latanoprost [Xalatan] 1 drop OP HS 04/16/18 [History] RX: predniSONE [PredniSONE] See Taper PO DAILY 7 Days #9 tablet 04/20/18 [Rx] Allergies/Adverse Reactions: Allergy/AdvReac Type Severity Reaction Status Date / Time bacitracin Allergy Blister Verified 04/15/18 05:32 [From Neosporin ([id number])] cetirizine Allergy Confusion Verified 04/15/18 05:32 ciprofloxacin Allergy Difficulty Verified 04/15/18 05:32 Breathing codeine Allergy Drowsy Verified 04/15/18 05:32 diazepam [From Valium] Allergy See Verified 04/15/18 05:32 Comments miconazole Allergy Blister Verified 04/15/18 05:32 [From Neosporin AF] Neomycin Allergy Blister Verified 04/15/18 05:32 Penicillins Allergy See Verified 04/15/18 05:32 Comments polymyxin B Allergy Blister Verified 04/15/18 05:32 promethazine [From Phenergan] Allergy See Verified 04/15/18 05:32 Comments ranolazine [From Ranexa] Allergy See Verified 03/23/18 17:06 Comments Sulfa (Sulfonamide Allergy Confusion Verified 08/24/17 05:53 Antibiotics) Certification: Further, I certify that my clinical findings support that this patient is homebound (i.e. absences from home require considerable and taxing effort and are for medical reasons or muslim services or infrequently or short duration when for other reasons) because: Homebound Reason: Severity of cardiac or pulmonary status limits activity tolerance Attestation: My signature below is to certify that this patient is under my care and that I, or nurse practitioner, or a physician's ophthalmic assistant working with me, has a [id number] encounter with this patient.
--- NOTE | 2018-04-21 17:33 | Electrocardiograph Report ---
[address] [address] Test Date: 2018-04-19 Pat Name: Antoinette Rodas Department: 111 Room: 2N6 Gender: F Dye Expert: TC : 1935 Requested By: Jose Alonso Order Number: [id number] Reading MD: Amairani Fleming Measurements Intervals [place] Rate: 81 P: 19 ID: [id number] QRS: -78 QRSD: 138 T: 76 QT: 434 QTc: 471 Interpretive Statements ELECTRONIC VENTRICULAR PACEMAKER Electronically Signed On 04-21-2018 17:31:24 EST by Amairani Fleming
--- NOTE | 2018-04-21 17:41 | Electrocardiograph Report ---
[place] [address] Test Date: 2018-04-19 Pat Name: Antoinette Rodas Department: 111 Room: 2N6 Gender: F Proofsheet Corrector: Richardson : 1935 Requested By: Naveed Byers Order Number: [id number] Reading MD: Amairani Fleming Measurements Intervals [place] Rate: 87 P: 26 SC: 116 QRS: -79 QRSD: 142 T: 79 QT: 417 QTc: 462 Interpretive Statements ELECTRONIC VENTRICULAR PACEMAKER ABNORMAL RHYTHM ECG Electronically Signed On 04-21-2018 17:39:34 EST by Amairani Fleming
== END 2018-04-20 17:30 | disposition home or self-care (01) | DRG 177 ==
LOC: 2SOUTHHOLD 09:17 → SUATTDRO 09:17 → 2NENU 18:41
PROVIDERS: ADMIT Family Medicine; ATTEND Internal Medicine

== ENCOUNTER 2018-05-21 10:07 | Inpatient (IN) ==
--- NOTE | 2018-05-21 12:38 | Internal Med History&Physical ---
Date of Encounter: 05/21/18 Time of Encounter: 12:35 Internal Medicine - H&P: HPI Chief complaint: blood in sputum. Plans for Post Hospital Care: Home History of present illness: Ms. Rodas is a 82 year old female past medical history of COPD, hyperlipidemia, CAD status post 5 stents, diabetes, A. fib on Coumadin, CHF, PE about 7-8 years ago, breast cancer status post left mastectomy is transferred from [place] for hemoptysis. She recently had 2 bouts of pneumonia March 2018 and in April 2018. Had bronchoscopy and BAL which grew Alcligenes Denitrifican and she was discharged on 7 day course of IV cefepime and prednisone. Patient felt better on discharge. Patient noticed yesterday she started having some difficulty breathing was she was was not TV as well as with minimal exertion. Patient also brought up a blood clot with a cough yesterday. Patient had a few bouts of cough this morning where she brought up some more blood which is dark in color. Was mixed with sputum. She denied any fever. She mentioned she had INR of 3.4 few days ago and she measured it at home by herself and adjust dosing. Patient got concerned because of blood and then to [place] ER. Patient had chest x-ray which showed decreased but persistent versus new mild left basilar atelectasis/pnemonia. Hemoglobin was stable at 10. INR of 2.6 and platelet of 226.. She denies any blood in urine or stool. She denies any chest pain. She does have associated shortness of breath with moderate exertion. Patient was interviewed on floors. She has some difficulty breathing denies any fevers chills nausea vomiting abdominal pain back pain urinary or bowel complaints. Wants to eat. Denies any other complain. Past Med Surg Social Fam HX - Past Medical History Medical history: atrial fibrillation, cancer, CHF, COPD, coronary artery disease, diabetes, GERD, hyperlipidemia, hypertension, pulmonary embolus, other Additional medical history: MACULAR DEGENERATION Psychiatric history: no psych history - Past Surgical History Surgical History: angioplasty/stent, appendectomy, breast surgery, cataract, cholecystectomy, pacemaker/AICD Additional surgical history: Left mastectomy, Cardiac stents X 5, PACEMAKER, RT FOOT SURG, BASAL CELL SURG FROM FACE, Multiple heart caths - Social History Smoking Status: Former smoker Smokeless Tobacco Status: No Alcohol use: none Drug use: none - Family History Mother Living Status: Hx Family Cardiac Disorders: Yes Hx Family Endocrine Disorder: Yes Father Adopted: No Family Member Ethnicity: Non- Living Status: Hx Family Cardiac Disorders: No Hx Family Respiratory Disorders: Yes Hx Family Cancer: Yes Hx Family GI Disorders: No Hx Family Endocrine Disorder: No Hx Family Neuromuscular Disorders: No Hx Family Neurologic Disorders: No Hx Family HEENT Disorders: No Hx Family Autoimmune Disorders: No Sister Living Status: Still Living Hx Family Cancer: Yes (Breast cancer) Internal Medicine - H&P: Meds Albuterol Sulfate [Albuterol Inhaler] 2 puff IH Q4H PRN 11/28/14 [History] Calcium Carbonate/Vitamin D3 [Calcium 250-D Tablet] 1 each PO BID 11/28/14 [History] Formoterol Fumarate [Perforomist] 20 mcg IH BID 11/28/14 [History] Nitroglycerin 0.2 mg TD DAILY 11/28/14 [History] Sotalol HCl [Betapace] 120 mg PO BID 11/28/14 [History] Cholecalciferol (D-3) [Vitamin D] 1,000 unit PO DAILY 04/28/16 [History] Diltiazem CD (24hr) [Cardizem CD] 120 mg PO BID 04/28/16 [History] Fish Oil/Dha/Epa [Fish Oil 1,200 mg Fish Oil] 1 each PO DAILY 06/01/16 [History] Tiotropium [Spiriva] 18 mcg IH DAILY 08/24/17 [History] Aspirin [Lo-Dose Aspirin EC] 81 mg PO DAILY 01/18/18 [History] Cyanocobalamin/Folic AC/Vit B6 [Folbic Tablet] 1 each PO DAILY 01/18/18 [History] Budesonide Neb [Pulmicort Neb] 0.25 mg IH BIDR 03/30/18 [History] Nitroglycerin 0.1 mg TD DAILY 03/30/18 [History] Latanoprost [Xalatan] 1 drop OP HS 04/16/18 [History] Isosorbide MONOnitrate (24 HR) [Imdur] 90 mg PO DAILY 05/03/18 [History] Atorvastatin Calcium [Lipitor] 80 mg PO HS 05/21/18 [History] Clopidogrel [Plavix] 75 mg PO DAILY 05/21/18 [History] Ezetimibe [Zetia] 10 mg PO DAILY 05/21/18 [History] Furosemide [Lasix] 20 mg PO DAILY 05/21/18 [History] Potassium Chloride [Klor-Con 10] 10 meq PO BIDWM 05/21/18 [History] Warfarin Sodium 7.5 mg PO DAILY 05/21/18 [History] Allergy/AdvReac Type Severity Reaction Status Date / Time bacitracin Allergy Blister Verified 04/20/18 22:28 [From Neosporin ([id number])] cetirizine Allergy Confusion Verified 04/20/18 22:28 ciprofloxacin Allergy Difficulty Verified 04/20/18 22:28 Breathing codeine Allergy Drowsy Verified 04/20/18 22:28 diazepam [From Valium] Allergy See Verified 04/20/18 22:28 Comments miconazole Allergy Blister Verified 04/20/18 22:28 [From Neosporin AF] Neomycin Allergy Blister Verified 04/20/18 22:28 Penicillins Allergy See Verified 04/20/18 22:28 Comments polymyxin B Allergy Blister Verified 04/20/18 22:28 promethazine [From Phenergan] Allergy See Verified 04/20/18 22:28 Comments ranolazine [From Ranexa] Allergy See Verified 03/23/18 17:06 Comments Sulfa (Sulfonamide Allergy Confusion Verified 08/24/17 05:53 Antibiotics) All Systems PM: A 10-system review of systems was performed and is negative for pertinent findings except as documented above in the HPI. - Constitutional Exam: Constitutional: Vitals as noted. Conversant. Mentally sharp. No Apparent Distress. Well groomed. Eyes : Sclera white, conjunctiva clear, no lid lag, PEARLA. ENT : Grossly normal hearing. Oropharyngeal exam unremarkable. Moist mucus membranes. No JVD, no cervical lymphadenopathy. no thyromegaly or mass. Respiratory : Clear to auscultation bilaterally. Good air entry. No accessory muscle use, rales, rhonchi or wheezes Cardiovascular : RRR, +S1, +S2. no murmur, gallop, rubs. No chest wall tenderness Lt mastectomy GI/Abdominal : Soft, Non-tender, Non-distended, normal bowel sounds, soft, no peritoneal signs. no orgenomegaly or mass appreciated. no hernia. Musculoskeletal: no deformity noted. no edema, warm extremities, pulses palpable and symmetrical in UE/LE. no calf tenderness. Neurological: AO X3, CN II-XII grossly intact, grossly normal motor and sensory exam. Skin: No skin rash, lesions or ulcers noted. Internal Med - H&P Results - EKG Data -: EKG Interpreted by Myself (paced rhythm) - Assessment and plan (1) Hemoptysis, unspecified Current Visit: No Status: Acute Assessment and plan: - Patient at submassive hemoptysis at further risk of decline. Case discussed with pulmonology. - We will transfer the patient to stepdown unit. We will keep patient nothing by mouth. Patient may need a bronchoscopy if worsening hemoptysis. - We will reverse anticoagulation with IV vitamin K 10 mg infusion. - CT scan ordered. We will continue patient on Zosyn for pneumonia.. Obtain urine legionella and streptococcal antigen. We will obtain ID consult on Wednesday. - Continue patient on her home inhalers. Will start patient on Solu-Medrol 40 BID as recommended by pulmonology. (2) Afib Current Visit: Yes Status: Acute Assessment and plan: - Currently with paced rhythm. - We will resume home medications once confirmed. - We will reverse patient anticoagulation given hemoptysis with vitamin K. (3) CHF (congestive heart failure) Current Visit: Yes Status: Acute Assessment and plan: - Patient with diastolic heart failure. - Previous history of CAD. - We will resume home medications once confirmed. Qualifiers: Heart failure type: diastolic Qualified Code(s): I50.32 - Chronic diastolic (congestive) heart failure (4) HTN (hypertension) Current Visit: Yes Status: Acute Assessment and plan: - BP stable - Will resume home medication as her BP tolerates Qualifiers: Hypertension type: essential hypertension Qualified Code(s): I10 - Essential (primary) hypertension (5) History of pulmonary embolus (PE) Current Visit: Yes Status: Acute Assessment and plan: - Had about 8-9 yrs ago associated with pneumonia. has h/o breast cancer - Currently on Coumadin. Have to reverse coumadin for short term at least given hemoptysis (6) Pneumonia Current Visit: No Status: Acute Assessment and plan: - antibiotics as above Qualifiers: Pneumonia type: due to unspecified organism Laterality: left Lung location: lower lobe of lung Qualified Code(s): J18.1 - Lobar pneumonia, unspecified organism (7) COPD (chronic obstructive pulmonary disease) Current Visit: No Status: Chronic Assessment and plan: - continue home inhaler and duonebs as needed - Started on solumedrol per pulmonogy recommendations Qualifiers: COPD type: emphysema Emphysema type: unspecified Qualified Code(s): J43.9 - Emphysema, unspecified (8) Coronary artery disease Current Visit: No Status: Chronic Qualifiers: Coronary Disease-Associated Artery/Lesion type: [place] artery [place] vs. transplanted heart: [place] heart Associated angina: with stable angina Qualified Code(s): I25.118 - Atherosclerotic heart disease of [place] coronary artery with other forms of angina pectoris (9) Diabetes mellitus Current Visit: No Status: Chronic Assessment and plan: - keep NPO for possible bronchoscopy - Will keep on accuchecks and insulin sliding scale q6hr Qualifiers: Diabetes mellitus type: type 2 Diabetes mellitus jail insulin use: without jail use Qualified Code(s): E11.9 - Type 2 diabetes mellitus without complications - Time Spent With Patient Total time spent is greater than 50% in coordination of care (as documented) at patient's floor/unit and/or counseling patient:
--- NOTE | 2018-05-21 12:43 | Pulmonology Consult Note ---
Date of Encounter: 05/21/18 Time of Encounter: 12:42 Assessment and Plan (1) Hemoptysis, unspecified Current Visit: No Status: Acute (2) Pneumonia Current Visit: No Status: Acute In conclusion this is a 2-year-old woman past medical history of chronic respiratory failure secondary to COPD former heavy smoker now in remission she was recently treated for pneumonia approximately 2 weeks ago and presents for hemoptysis that started earlier today after expressing shortness of breath last night. Overall picture is concerning for incompletely treated pneumonia at last visit I suspect that the nature of her organs and required a longer course of therapy and thus she has had reoccurrence. This complicated by COPD exacerbation. Hemoptysis as submassive at this time but concerning given that she is anticoagulated and she has had fresh blood earlier in the day she is at high risk for further decline in needs to be monitored closely. Recs: -Submassive hemoptysis at this time would instruct the nursing staff to place a basin by the bedside so we can quantify how much blood she is coughing up. If more than 250 mL at any one time or 250 mL within a 12 hour period recommend t ransferring to the ICU and consider intubation. I also discussed with the primary hospitalist service that my feeling is that patient should probably be transferred to [address] [place] [address] to [facility] for closer monitoring given that she is is currently anticoagulated and having hemoptysis -Patient would benefit from reversal of INR with vitamin K defer to primary medicine service for this -IV Solu-Medrol 40 mg twice a day for COPD exacerbation continue bronchodilator therapy -Antitussive medication such as Tessalon Perles or codeine cough syrup can be helpful -Agree with initiation of antimicrobials at this point she is on Zosyn which is acceptable send sputum culture blood cultures urine antigens for strep pneumo and legionella respiratory infection panel. -Highly recommend formal infectious disease consultation on Wednesday -Keep nothing by mouth at midnight strong consideration for bronchoscopy in the morning if she continues to have hemoptysis or urgently today if she has any further episodes of significant amount of bright red blood localize bleeding -I have ordered a noncontrast CT scan of the chest Pulmonary will continue to follow thank you very much for this consultation I discussed my impression and recommendations directly with the primary hospitalist Dr. Coulter Qualifiers: Pneumonia type: due to unspecified organism Laterality: left Lung location: lower lobe of lung Qualified Code(s): J18.1 - Lobar pneumonia, unspecified organism (3) Acute exacerbation of chronic obstructive pulmonary disease (COPD) Current Visit: No Status: Acute History of Present Illness Consult date: 05/21/18 Requesting physician: Nallely Coulter Reason for consult: other (Hemoptysis ) Chief complaint: Difficulty in Breathing History of present illness: This is a very pleasant 82-year-old woman well known to the pulmonary service recently admitted to the at the end of April for recurrent pneumonia with COPD exacerbation underwent bronchoscopy that time which was notable for BAL positive culture of Alcaligenes, denitrificans history over 7 days with IV cefepime and transferred home she says that yesterday she became more short of breath prior to going to bed and she woke up this morning to the nebulized breathing treatment in coughed up a chunk of "blood that look like liver". By this she meant that it was dark and red in color. Subsequent to that she actually had some bright red blood that she coughed up that was mixed with mucus enough to coat a small portion of the drain around the sink. In total she is unclear how much she coughed out but sounds like about 2 tablespoons of bright red blood mixed with sputum. She is anticoagulated at present moment for A. fib with RVR she presented to [facility] ED chest x-ray there was concern for left-sided pneumonia and transferred to [facility] for further evaluation. When his BUN here today says she had no further episodes of hemoptysis and she left [facility] she says she feels okay but just a little bit more short of breath than usual. She denies any nosebleeding hematemesis darks stools or blood in the stool she also denies any blood in the urine. Past Med Surg Social Fam HX - Past Medical History Medical history: atrial fibrillation, cancer, CHF, COPD, coronary artery disease, diabetes, GERD, hyperlipidemia, hypertension, pulmonary embolus, other Additional medical history: MACULAR DEGENERATION Psychiatric history: no psych history - Past Surgical History Surgical History: angioplasty/stent, appendectomy, breast surgery, cataract, cholecystectomy, pacemaker/AICD Additional surgical history: Left mastectomy, Cardiac stents X 5, PACEMAKER, RT FOOT SURG, BASAL CELL SURG FROM FACE, Multiple heart caths - Social History Smoking Status: Former smoker Smokeless Tobacco Status: No Alcohol use: none Drug use: none - Family History Mother Living Status: Hx Family Cardiac Disorders: Yes Hx Family Endocrine Disorder: Yes Father Adopted: No Family Member Ethnicity: Non- Living Status: Hx Family Cardiac Disorders: No Hx Family Respiratory Disorders: Yes Hx Family Cancer: Yes Hx Family GI Disorders: No Hx Family Endocrine Disorder: No Hx Family Neuromuscular Disorders: No Hx Family Neurologic Disorders: No Hx Family HEENT Disorders: No Hx Family Autoimmune Disorders: No Sister Living Status: Still Living Hx Family Cancer: Yes (Breast cancer) Medications and Allergies Albuterol Sulfate [Albuterol Inhaler] 2 puff IH Q4H PRN 11/28/14 [History] Alendronate Sodium 70 mg PO QWEEK 11/28/14 [History] Atorvastatin [Lipitor] 80 mg PO HS 11/28/14 [History] Calcium Carbonate/Vitamin D3 [Calcium 250-D Tablet] 1 each PO BID 11/28/14 [History] Clopidogrel [Plavix] 75 mg PO DAILY 11/28/14 [History] Ezetimibe [Zetia] 10 mg PO HS 11/28/14 [History] Formoterol Fumarate [Perforomist] 20 mcg IH BID 11/28/14 [History] Furosemide [Lasix] 20 mg PO DAILY 11/28/14 [History] GlipiZIDE [Glucotrol] 5 mg PO BIDWM 11/28/14 [History] Nitroglycerin 0.2 mg TD DAILY 11/28/14 [History] Sotalol HCl [Betapace] 120 mg PO BID 11/28/14 [History] Cholecalciferol (D-3) [Vitamin D] 1,000 unit PO DAILY 04/28/16 [History] Diltiazem CD (24hr) [Cardizem CD] 120 mg PO BID 04/28/16 [History] Esomeprazole Magnesium [Nexium] 40 mg PO DAILY 06/01/16 [History] Fish Oil/Dha/Epa [Fish Oil 1,200 mg Fish Oil] 2 each PO DAILY 06/01/16 [History] Tiotropium [Spiriva] 18 mcg IH DAILY 08/24/17 [History] Aspirin [Lo-Dose Aspirin EC] 81 mg PO DAILY 01/18/18 [History] Cyanocobalamin/Folic AC/Vit B6 [Folbic Tablet] 1 each PO DAILY 01/18/18 [History] Budesonide Neb [Pulmicort Neb] 0.25 mg IH BIDR 03/30/18 [History] Nitroglycerin 0.1 mg TD DAILY 03/30/18 [History] Acetaminophen [Tylenol] 650 mg PO Q6HR PRN tablet 04/04/18 [Rx] Potassium Chloride 10 meq PO BIDWM #60 tab.er.prt 04/04/18 [Rx] Latanoprost [Xalatan] 1 drop OP HS 04/16/18 [History] Warfarin [Coumadin] 7.5 mg PO DAILY #0 04/24/18 [Rx] Isosorbide MONOnitrate (24 HR) [Imdur] 90 mg PO BID 05/03/18 [History] GuaiFENesin ER [Mucinex] 600 mg PO BID #10 tbbp.12hr 05/09/18 [Rx] Levofloxacin [Levaquin] 750 mg PO DAILY #3 tablet 05/09/18 [Rx] predniSONE [PredniSONE] See Taper PO DAILY #30 tablet 05/09/18 [Rx] Allergy/AdvReac Type Severity Reaction Status Date / Time bacitracin Allergy Blister Verified 04/20/18 22:28 [From Neosporin ([id number])] cetirizine Allergy Confusion Verified 04/20/18 22:28 ciprofloxacin Allergy Difficulty Verified 04/20/18 22:28 Breathing codeine Allergy Drowsy Verified 04/20/18 22:28 diazepam [From Valium] Allergy See Verified 04/20/18 22:28 Comments miconazole Allergy Blister Verified 04/20/18 22:28 [From Neosporin AF] Neomycin Allergy Blister Verified 04/20/18 22:28 Penicillins Allergy See Verified 04/20/18 22:28 Comments polymyxin B Allergy Blister Verified 04/20/18 22:28 promethazine [From Phenergan] Allergy See Verified 04/20/18 22:28 Comments ranolazine [From Ranexa] Allergy See Verified 03/23/18 17:06 Comments Sulfa (Sulfonamide Allergy Confusion Verified 08/24/17 05:53 Antibiotics) All Systems: The remainder of the systems were reviewed and are negative Physical Examination General appearance: no acute distress Eyes: nonicteric ENT: oropharynx moist Effort: normal Auscultation: bilateral: rhonchi Cardiovascular: regular rate and rhythm Gastrointestinal: normoactive bowel sounds, absent bowel sounds, soft, non- tender Extremities: no cyanosis, no edema, no clubbing Musculoskeletal: no deformities normal mental status, non-focal exam, pupils equal and round mood appropriate Results - Diagnostic Findings Chest x-ray: report reviewed, image reviewed
[2018-05-21] MEDS ORDERED: Dextrose Gel 15 GM/37.5 ML TUBE PO PRN ×2 (14:07)
[2018-05-21] MEDS ORDERED: D5% in Water 1,000 ML IVC PRN (14:07)
[2018-05-21] MEDS ORDERED: *HR* Dextrose 50 % in Water (Syg) 50 ML SYRINGE IVP PRN (14:07)
[2018-05-21 15:09] LABS: Adenovirus Not Detected (Not Detect); Bordetella Pertussis Not Detected (Not Detect); Chlamydophila pneumoniae Not Detected (Not Detect); Coronavirus 229E Not Detected (Not Detect); Coronavirus HKU1 Not Detected (Not Detect); Coronavirus NL63 Not Detected (Not Detect); Coronavirus OC43 Not Detected (Not Detect); Human Metapneumovirus Not Detected (Not Detect); Human Rhinovirus/Enterovirus Not Detected (Not Detect); Influenza A Subtype 2009 H1 Not Detected (Not Detect); Influenza A Untypeable Not Detected (Not Detect); Influenza B Not Detected (Not Detect); Mycoplasma pneumoniae Not Detected (Not Detect); Parainfluenza Virus 1 Not Detected (Not Detect); Parainfluenza Virus 2 Not Detected (Not Detect); Parainfluenza Virus 3 Not Detected (Not Detect); Parainfluenza Virus 4 Not Detected (Not Detect); Respiratory Syncytial Virus Not Detected (Not Detect)
[2018-05-21] MEDS: Piperacillin/Tazobactam 3.375 GM in 0.9 % Sodium Chloride Mini Bag 100 ML IVPB SCH ×2 (16:06→23:30)
[2018-05-21] MEDS: Benzonatate 100 MG CAPSULE PO SCH ×2 (16:07→19:43)
[2018-05-21] MEDS: Insulin LISPRO 300 UNITS/3 ML VIAL SQ SCH ×2 (17:34→23:38)
[2018-05-21] MEDS: MethylPREDNISolone 40 MG/ML VIAL IVP SCH (17:34)
[2018-05-21] MEDS: Diltiazem CD (24hr) 120 MG CAPSULE PO SCH (19:43)
[2018-05-21] MEDS ORDERED: NON-FORMULARY MEDICATION 1 EACH EACH (Formoterol Fumarate [Perforomist] 20 MCG) IH SCH (21:00)
[2018-05-21] MEDS: Isosorbide MONOnitrate (24 HR) 30 MG TAB.ER.24H PO SCH (21:21)
[2018-05-21] MEDS: Budesonide Neb 0.25 MG/2 ML IH SCH (22:36)
[2018-05-22 04:44] LABS: Basophils % 0.1 %; Mean Corpuscular Hemoglobin 22.1 pg (28.0-33.3)
[2018-05-22 04:45] LABS: Hematocrit 35.4 % (35.3-44.9); Hemoglobin 10.1 g/dL (11.5-15.4); Immature Granulocytes % 0.6 % (0-4); Lymphocytes # 0.9 K/mcL (0.6-4.6); Lymphocytes % 13.6 %; Mean Corpuscular HGB Conc 28.5 g/dL (31.6-35.5); Mean Corpuscular Volume 77.5 fL (83.0-100.0); Monocytes # 0.1 K/mcL (0.0-1.3); Monocytes % 0.7 %; Neutrophils # 5.7 K/mcL (1.6-8.9); Platelet Count 239 K/mcL (140-400); Red Blood Count 4.57 M/mcL (3.82-4.97); Red Cell Distribution Width 21.5 % (11.5-14.5)
[2018-05-22 05:01] LABS: Anisocytosis 2+ (Not Present); Hypochromasia Present (Not Present); Microcytosis Present (Not Present); Platelet Estimate Normal (Normal)
[2018-05-22 05:04] LABS: BUN/Creatinine Ratio 30 (6-26); Blood Urea Nitrogen 19 mg/dL (8-23); Calcium 9.3 mg/dL (8.6-10.3); Carbon Dioxide 34 mEq/L (23-29); Chloride 102 mEq/L (98-107); Glucose 163 mg/dL (70-105); Osmolality,Calculated 300 (280-300); Potassium 4.2 mEq/L (3.5-5.1); Sodium 142 mEq/L (136-145); eGFR For Non-African Americans > 60 (> 60)
[2018-05-22] MEDS: Insulin LISPRO 300 UNITS/3 ML VIAL SQ SCH ×4 (05:46→21:54)
[2018-05-22] MEDS: MethylPREDNISolone 40 MG/ML VIAL IVP SCH ×2 (05:46→18:25)
[2018-05-22] MEDS ORDERED: *HR* Succinylcholine 200 MG/10 ML VIAL IVP ONE ×2 (07:40→09:14)
[2018-05-22] MEDS ORDERED: Lidocaine -MPF 4% 5 ML AMPUL ONE ×3 (07:40→08:58)
[2018-05-22] MEDS ORDERED: *HR* Propofol 200 MG/20 ML VIAL IVP ONE ×3 (07:40→09:14)
[2018-05-22] MEDS ORDERED: Lidocaine -MPF 2% 2 ML VIAL ONE ×2 (07:40→09:14)
[2018-05-22] MEDS ORDERED: Lidocaine Viscous Oral Soln 15 ML SOLUTION ONE (07:43)
--- NOTE | 2018-05-22 07:52 | Anesthesia Evaluation PreOp ---
Date of Encounter: 05/22/18 Time of Encounter: 09:12 - Past History Planned Operation: BRONCHOSCOPY Cardiac History: CHF, HTN, Hyperlipidemia, Arrhythmia (AFIB, CHRONIC COUMADIN ANTICOAGULATION), Cardiac Stent (X5), Pacemaker/ICD (SSS, [facility] PACEMAKER, RV 100% PACED), Other (HO PE, 08/2017: LVEF 60%, Mild LV diastolic dysfunction, Normal RVSF, Bi-atrial enlargement, Moderate MR, Mild TR, Mild pulmonary hypertension. 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: Denies Any Significant HX, Other Other Medical History: Diabetes Type II, GERD, Other (MULTIPLE MEDICATION ALLERGIES) Anesthesia History: No Prior Anesthetic Complications, Past Anesthesia Alcohol Use: none Drug use: none Medications and Allergies Albuterol Sulfate [Albuterol Inhaler] 2 puff IH Q4H PRN 11/28/14 [History] Calcium Carbonate/Vitamin D3 [Calcium 250-D Tablet] 1 each PO BID 11/28/14 [History] Formoterol Fumarate [Perforomist] 20 mcg IH BID 11/28/14 [History] Nitroglycerin 0.2 mg TD DAILY 11/28/14 [History] Sotalol HCl [Betapace] 120 mg PO BID 11/28/14 [History] Cholecalciferol (D-3) [Vitamin D] 1,000 unit PO DAILY 04/28/16 [History] Diltiazem CD (24hr) [Cardizem CD] 120 mg PO BID 04/28/16 [History] Fish Oil/Dha/Epa [Fish Oil 1,200 mg Fish Oil] 1 each PO DAILY 06/01/16 [History] Tiotropium [Spiriva] 18 mcg IH DAILY 08/24/17 [History] Aspirin [Lo-Dose Aspirin EC] 81 mg PO DAILY 01/18/18 [History] Cyanocobalamin/Folic AC/Vit B6 [Folbic Tablet] 1 each PO DAILY 01/18/18 [History] Budesonide Neb [Pulmicort Neb] 0.25 mg IH BIDR 03/30/18 [History] Nitroglycerin 0.1 mg TD DAILY 03/30/18 [History] Latanoprost [Xalatan] 1 drop OP HS 04/16/18 [History] Isosorbide MONOnitrate (24 HR) [Imdur] 90 mg PO DAILY 05/03/18 [History] Atorvastatin Calcium [Lipitor] 80 mg PO HS 05/21/18 [History] Clopidogrel [Plavix] 75 mg PO DAILY 05/21/18 [History] Ezetimibe [Zetia] 10 mg PO DAILY 05/21/18 [History] Furosemide [Lasix] 20 mg PO DAILY 05/21/18 [History] Potassium Chloride [Klor-Con 10] 10 meq PO BIDWM 05/21/18 [History] Warfarin Sodium 7.5 mg PO DAILY 05/21/18 [History] Allergy/AdvReac Type Severity Reaction Status Date / Time bacitracin Allergy Blister Verified 04/20/18 22:28 [From Neosporin ([id number])] cetirizine Allergy Confusion Verified 04/20/18 22:28 ciprofloxacin Allergy Difficulty Verified 04/20/18 22:28 Breathing codeine Allergy Drowsy Verified 04/20/18 22:28 diazepam [From Valium] Allergy See Verified 04/20/18 22:28 Comments miconazole Allergy Blister Verified 04/20/18 22:28 [From Neosporin AF] Neomycin Allergy Blister Verified 04/20/18 22:28 Penicillins Allergy See Verified 04/20/18 22:28 Comments polymyxin B Allergy Blister Verified 04/20/18 22:28 promethazine [From Phenergan] Allergy See Verified 04/20/18 22:28 Comments ranolazine [From Ranexa] Allergy See Verified 03/23/18 17:06 Comments Sulfa (Sulfonamide Allergy Confusion Verified 08/24/17 05:53 Antibiotics) - Meds/Allergy Pre-op Review Medications Reviewed: Yes Allergies Reviewed: Yes Anesthesia Results - Labs 05/22/18 04:26 05/22/18 04:26 Laboratory Tests 05/22/18 05/22/18 04:26 07:40 PT 12.7 H D INR 1.1 D Calcium 9.3 Laboratory Tests 05/09/18 04:22 Magnesium 1.9 Anesthesia Exam Vital Signs/O2 Sat/Glucose, Most Recent Temp Pulse Resp BP Pulse Ox 98.7 F 91 16 157/80 98 05/22/18 07:28 05/22/18 04:00 05/22/18 08:19 05/22/18 04:00 05/22/18 08:19 Weight: 62 KG - BMI 27 NPO (# of Hours): >8 - HEENT Mallampati: II Teeth: Missing Denture Type: Upper: Complete Oral Opening: Greater than 3 - Cardiac Rhythm: Irregular - Pulmonary Breath Sounds: bilateral Clear Respiratory Effort: Symmetrical Anesthesia Assess/Plan ASA Score: 3 Anesthetic Plan: General Monitoring Plan: Standard Monitors Recovery Plan: PACU
[2018-05-22 08:15] LABS: INR 1.1; Prothrombin Time 12.7 Seconds (9.4-12.1)
[2018-05-22] MEDS: Budesonide Neb 0.25 MG/2 ML IH SCH ×2 (08:19→22:38)
[2018-05-22] MEDS: Piperacillin/Tazobactam 3.375 GM in 0.9 % Sodium Chloride Mini Bag 100 ML IVPB SCH ×3 (08:54→22:57)
[2018-05-22] MEDS: Isosorbide MONOnitrate (24 HR) 30 MG TAB.ER.24H PO SCH ×2 (08:56→22:42)
[2018-05-22] MEDS: Benzonatate 100 MG CAPSULE PO SCH ×3 (08:56→21:52)
[2018-05-22] MEDS: Diltiazem CD (24hr) 120 MG CAPSULE PO SCH ×2 (08:56→21:51)
[2018-05-22] MEDS: (Ezetimibe [Zetia] 10 MG) PO SCH (08:58)
--- NOTE | 2018-05-22 09:07 | Internal Med Progress Note ---
Hospitalist Progress Note - Encounter Date of Encounter: 05/22/18 Time of Encounter: 09:04 - Subjective Interval History: Patient was seen and examined. Afebrile overnight. Being treated for pneumonia/COPD exacerbation. Has been monitored in the ICU for hemoptysis. None since yesterday. INR was 2.6 and given vit K and INR is down to 1.1. Has a history of COPD, hyperlipidemia, CAD status post 5 stents, diabetes, A. fib on Coumadin, CHF, PE about 7-8 years ago, breast cancer status post left mastectomy. Was transferred from [place] for hemoptysis. Recent pnemonia treatment in March and April. Bronch done in Apr - Exam Vitals: Temp Pulse Resp BP Pulse Ox 98.7 F 91 16 157/80 98 05/22/18 07:28 05/22/18 04:00 05/22/18 08:19 05/22/18 04:00 05/22/18 08:19 Exam: GEN: NAD CVS: RRR. S1, S2, No m/r/g RESP: Diminished with scattered rhonchi ABD: Soft, NT, ND, +BS EXT: No edema. 2+ DP. No rashes NEURO: Nonfocal - Assessment and Plan (1) Hemoptysis, unspecified Current Visit: No Status: Acute Assessment and Plan: H&H is stable. INR has been reversed. Seems to have resolved. Bronch today. We will continue to monitor. Appreciate pulmonary's help. (2) COPD (chronic obstructive pulmonary disease) Current Visit: No Status: Chronic Assessment and Plan: Seen by pulmonology and is being treated for COPD exacerbation. Has been started on IV Solu-Medrol. Continue nebs. Continue antitussives. (3) Pneumonia Current Visit: No Status: Acute Assessment and Plan: Patient is on Zosyn. Urine strep and legionella are negative. Consult ID tomorrow. (4) Diabetes mellitus Current Visit: No Status: Chronic Assessment and Plan: Sliding scale insulin. Accu-Cheks. (5) Coronary artery disease Current Visit: No Status: Chronic Assessment and Plan: Continue home meds (6) Afib Current Visit: Yes Status: Acute Assessment and Plan: Coumadin on hold. Patient is on Cardizem and sotalol. Stable (7) CHF (congestive heart failure) Current Visit: Yes Status: Acute Assessment and Plan: Euvolemic. Continue home meds. (8) HTN (hypertension) Current Visit: Yes Status: Acute Assessment and Plan: Continue home meds (9) History of pulmonary embolus (PE) Current Visit: Yes Status: Acute Assessment and Plan: Coumadin is on hold for now due to hemoptysis. We will be discussing with pulmonary about when they feel comfortable resuming it. DVT Prophylaxis: SCDs - Time Spent with Patient Total time spent is greater than 50% in coordination of care (as documented) at patient's floor/unit and/or counseling patient: Internal Medicine: Result - Labs CBC & Chem 7: 05/22/18 04:26 05/22/18 04:26 Labs: Short CBC 05/22/18 Range/Units 04:26 WBC 6.7 (4.3-11.1) K/mcL Hgb 10.1 L (11.5-15.4) g/dL Hct 35.4 (35.3-44.9) % Plt Count 239 (140-400) K/mcL Neutrophils # 5.7 (1.6-8.9) K/mcL BMP 05/22/18 04:26 Sodium 142 Potassium 4.2 Chloride 102 Carbon Dioxide 34 H BUN 19 Creatinine 0.63 Glucose 163 H Calcium 9.3 - ABG Interpretation ABG results: PT/INR, D-dimer PT 12.7 Seconds (9.4-12.1) H D 05/22/18 07:40 - Impressions Impressions Chest CT 05/21/18 12:54 IMPRESSION: 1. Tree-in-bud nodularity, worse in the left lower lobe. Findings are most compatible with an infectious/inflammatory etiology. Additionally, more dominant pulmonary nodules measuring up to 5 mm are seen, favored to be related to the underlying acute process. Recommend treating the patient with follow-up imaging in approximately 3 months. 2. Moderate emphysema. 3. Severe coronary artery atherosclerosis. D/ / 05/21/2018 15:05:32 Connie Lenz MD / sabrina Interpreting Provider: Connie Lenz MD Consult Discharge Plan - Plan Referrals: Mizer,Justice D, MD [Primary Care Provider] - (2) COPD (chronic obstructive pulmonary disease) Qualifiers: COPD type: emphysema Emphysema type: unspecified Qualified Code(s): J43.9 - Emphysema, unspecified (3) Pneumonia Qualifiers: Pneumonia type: due to unspecified organism Laterality: left Lung location: lower lobe of lung Qualified Code(s): J18.1 - Lobar pneumonia, unspecified organism (4) Diabetes mellitus Qualifiers: Diabetes mellitus type: type 2 Diabetes mellitus group home insulin use: without group home use (5) Coronary artery disease Qualifiers: Coronary Disease-Associated Artery/Lesion type: [place] artery [place] vs. transplanted heart: [place] heart Associated angina: with stable angina Qualified Code(s): I25.118 - Atherosclerotic heart disease of [place] coronary artery with other forms of angina pectoris (6) Afib Qualifiers: Atrial fibrillation type: unspecified Qualified Code(s): I48.91 - Unspecified atrial fibrillation (7) CHF (congestive heart failure) Qualifiers: Heart failure type: diastolic Qualified Code(s): I50.32 - Chronic diastolic (congestive) heart failure (8) HTN (hypertension) Qualifiers: Hypertension type: essential hypertension Qualified Code(s): I10 - Essential (primary) hypertension
[2018-05-22] MEDS ORDERED: Ipratropium/Albuterol Neb 3 ML IH PRN (09:08)
[2018-05-22] MEDS ORDERED: Dexamethasone 4 MG/ML VIAL ONE (09:19)
[2018-05-22] MEDS ORDERED: Ringers Solution, Lactated 1,000 ML IVC SCH (09:30)
[2018-05-22] MEDS ORDERED: Ipratropium/Albuterol Neb 3 ML IH ONE (09:35)
--- NOTE | 2018-05-22 09:50 | Anesthesia Evaluation Post Op ---
Date of Encounter: 05/22/18 Time of Encounter: 10:20 - Discharge PostOp Status: Transfer Patient to floor (Patient's vital signs have been reviewed. Patient is stable postoperatively and has adequately recovered from anesthesia. Patient is determined to have stable airway patency and respiratory function including respiratory rate and oxygen saturation. Patient has a stable heart rate, blood pressure and adequate hydration. Patients mental status is acceptable. Patients temperature is appropriate. Pain and nausea are adequately controlled.)
--- NOTE | 2018-05-22 09:56 | Pulmonology Progress Note ---
Date of Encounter: 05/22/18 Time of Encounter: 09:52 Assessment and Plan (1) Hemoptysis, unspecified Current Visit: No Status: Acute In conclusion this 82-year-old woman has a past medical history of COPD and respiratory failure she has had multiple episodes of pneumonia including last case requiring admission in September the end of April for which she completed a weeklong course of cefepime she presents with hemoptysis secondary to what appears to be in my opinion on fully treated pneumonia with COPD exacerbation. I reviewed her CT scan which was notable for mild infiltrate on the left side. She underwent bronchoscopy today with essentially normal airway examination no evidence of bleeding. This is encouraging. -Stable for transfer back to medical telemetry for ongoing care -I suspect over the next 24-48 hours should be candidate for restarting systemic anticoagulation for primary stroke prophylaxis/A. fib -Okay to advance diet after 2 hours post bronchoscopy -Continue IV antibiotics -Recommend formal consultation with infectious disease -Continue steroids these can be transitioned to by mouth prednisone 40 mg -Continue bronchodilators for COPD -Pulmonary will follow up culture/results from bronchoscopy Do not hesitate to call me with any questions or concerns Srikanth Cheung [phone] (2) Pneumonia Current Visit: No Status: Acute Qualifiers: Pneumonia type: due to unspecified organism Laterality: left Lung location: lower lobe of lung Qualified Code(s): J18.1 - Lobar pneumonia, unspecified organism (3) Acute exacerbation of chronic obstructive pulmonary disease (COPD) Current Visit: No Status: Acute Subjective Principal diagnosis: Hemoptysis Interval history: Ms. Rodas has done well overnight no further episodes of hemoptysis that she was monitored and stepdown unit and up being physically in the ICU as part of overflow she been hemodynamically stable INR is corrected after administration of vitamin K Objective PUL Vital signs: Last Vital Signs Temp 97.6 F 05/22/18 09:28 Pulse 93 05/22/18 09:28 Resp 16 05/22/18 09:28 BP 210/86 05/22/18 09:28 Pulse Ox 98 05/22/18 09:28 General appearance: no acute distress Eyes: nonicteric ENT: oropharynx moist Neck: supple Auscultation: left: rales Cardiovascular: irregular rhythm Gastrointestinal: normoactive bowel sounds, soft, non-tender Integumentary: normal Extremities: no cyanosis, no edema, no clubbing Musculoskeletal: no deformities normal mental status, non-focal exam mood appropriate Results - Laboratory Findings CBC and BMP: 05/22/18 04:26 05/22/18 04:26 PT/INR, D-dimer PT 12.7 Seconds (9.4-12.1) H D 05/22/18 07:40 Abnormal lab findings: Abnormal lab results Hgb 10.1 g/dL (11.5-15.4) L 05/22/18 04:26 MCV 77.5 fL (83.0-100.0) L 05/22/18 04:26 MCH 22.1 pg (28.0-33.3) L 05/22/18 04:26 MCHC 28.5 g/dL (31.6-35.5) L 05/22/18 04:26 RDW 21.5 % (11.5-14.5) H 05/22/18 04:26 Hypochromasia Present (Not Present) A 05/22/18 04:26 Anisocytosis 2+ (Not Present) A 05/22/18 04:26 Microcytosis Present (Not Present) A 05/22/18 04:26 PT 12.7 Seconds (9.4-12.1) H D 05/22/18 07:40 Carbon Dioxide 34 mEq/L (23-29) H 05/22/18 04:26 BUN/Creatinine Ratio 30 (6-26) H 05/22/18 04:26 Glucose 163 mg/dL (70-105) H 05/22/18 04:26 POC Glucose 150 mg/dL (70-99) H 05/21/18 23:34 - Microbiology Findings Microbiology Findings: Microbiology, Last 48 Hours 05/21/18 18:07 Legionella Antigen - Final Urine,Clean Catch Streptococcus pneumoniae Antigen (M - Final - Clinical Findings Intake & Output: Intake & Output 05/21/18 05/22/18 05/22/18 23:59 07:59 15:59 Intake Total 100 / 100 100 / 100 100 / 100 Output Total 300 / 300 150 / 150 Balance -200 / -200 -50 / -50 100 / 100 Consult Discharge Plan - Plan Referrals: Justice Tapia MD [Primary Care Provider] -
[2018-05-22] MEDS: Nitroglycerin 0.1 MG PATCH.TD24 TD SCH (10:59)
[2018-05-22] MEDS: Nitroglycerin 0.2 MG PATCH.TD24 TD SCH (10:59)
[2018-05-22] MEDS: VIT B6 PO SCH (12:45)
[2018-05-22] MEDS: FOLIC AC PO SCH (12:45)
[2018-05-22] MEDS: CYANOCOBALAMIN PO SCH (12:45)
[2018-05-22] MEDS: (Fish Oil/Dha/Epa [Fish Oil 1,200 Mg Fish Oil] 1 EACH PO SCH (12:47)
[2018-05-22 12:56] LABS: Appearance of Body Fluid Slightly Hazy (Clear)
[2018-05-22 12:57] LABS: Volume of Body Fluid 14 mL
[2018-05-22] MEDS: Tiotropium 18 MCG inhalation IH SCH (13:19)
[2018-05-22] MEDS: Cholecalciferol (D-3) 1,000 UNIT TABLET PO SCH (13:45)
[2018-05-22] MEDS: Latanoprost 2.5 ML BOTTLE BOTH EYES SCH (22:42)
[2018-05-23] MEDS: MethylPREDNISolone 40 MG/ML VIAL IVP SCH ×2 (05:08→18:30)
[2018-05-23 05:14] LABS: Hemoglobin 9.1 g/dL (11.5-15.4); Immature Granulocytes % 0.3 % (0-4); Lymphocytes # 0.9 K/mcL (0.6-4.6); Lymphocytes % 10.9 %; Mean Corpuscular HGB Conc 29.4 g/dL (31.6-35.5); Mean Corpuscular Hemoglobin 22.6 pg (28.0-33.3); Mean Corpuscular Volume 76.9 fL (83.0-100.0); Mean Platelet Volume 10.4 fL (9.4-12.4); Monocytes # 0.3 K/mcL (0.0-1.3); Monocytes % 3.5 %; Neutrophils # 7.4 K/mcL (1.6-8.9); Platelet Count 238 K/mcL (140-400); Red Blood Count 4.03 M/mcL (3.82-4.97); Red Cell Distribution Width 21.6 % (11.5-14.5); Segmented Neutrophils % 85.3 %
[2018-05-23 05:31] LABS: BUN/Creatinine Ratio 38 (6-26); Blood Urea Nitrogen 23 mg/dL (8-23); Calcium 8.9 mg/dL (8.6-10.3); Carbon Dioxide 36 mEq/L (23-29); Chloride 102 mEq/L (98-107); Glucose 206 mg/dL (70-105); Magnesium 2.1 mg/dL (1.6-2.6); Osmolality,Calculated 304 (280-300); Potassium 4.2 mEq/L (3.5-5.1); Sodium 142 mEq/L (136-145); eGFR For Non-African Americans > 60 (> 60)
[2018-05-23 05:35] LABS: Prothrombin Time 10.9 Seconds (9.4-12.1)
--- NOTE | 2018-05-23 07:55 | Event Note ---
Date of Encounter: 05/23/18 Time of Encounter: 07:51 Patient was seen and examined. I agree with the progress note as written by the resident physician. Patient is afebrile overnight. Had an episode of chest pain earlier this morning and says her O2 sats dropped to the 60s. This was while laying in bed. No radiation. She also had one episode of 1/4 of tea spoon hemoptysis yesterday after bronch but none since. Being treated for pneumonia/COPD exacerbation. Had issues with hemoptysis and ended up taken for a bronch which came back with normal airways. BAL was sent. INR was 2.6 and given vit K and INR is down to 1.1. Has a history of COPD, hyperlipidemia, CAD status post 5 stents, diabetes, A. fib on Coumadin, CHF, PE about 7-8 years ago, breast cancer status post left mastectomy. Was transferred from [place] for hemoptysis. Recent pnemonia treatment in March and April. Bronch done in Apr GEN: NAD CVS: RRR. S1, S2, No m/r/g RESP: Diminished with scattered rhonchi ABD: Soft, NT, ND, +BS EXT: No edema. 2+ DP. No rashes NEURO: Nonfocal STAT EKG Bronch done and BAL was sent Normal airways Pain Management Nurse Practitioner okay with restarting anticoagulation in the next 24-48 hours. Probably restart them tonight Also resume anti-platelet therapy After discussing with my residents and nursing staff, it was found that her HR went down to the 60s not her O2 sats. No need for CTA chest. Resume lasix ID consult was recommended for treatment of recurrent unresolving pneumonias. A consult was ordered yesterday. Continue IV steroids Continue Zosyn for now Continue Cardizem as well as sotalol. Sliding scale insulin
[2018-05-23] MEDS ORDERED: Isosorbide MONOnitrate (24 HR) 30 MG TAB.ER.24H PO SCH (09:00)
--- NOTE | 2018-05-23 09:19 | Pulmonology Progress Note ---
<Yadi De Souza - Last Filed: 05/23/18 12:29> Date of Encounter: 05/23/18 Time of Encounter: 09:00 Assessment and Plan (1) Pneumonia Current Visit: Yes Status: Acute Completed cefepime for pneumonia outpatient and continues to have cough and shor tness of breath. -Continue IV antibiotics -Recommend Infectious disease consult -BAL currently culture no growth, cytology pending Qualifiers: Pneumonia type: due to unspecified organism Laterality: left Lung location: lower lobe of lung Qualified Code(s): J18.1 - Lobar pneumonia, unspe cified organism (2) COPD (chronic obstructive pulmonary disease) Current Visit: Yes Status: Chronic History of chronic COPD. On 2 liters of home supplement. Does not appear to be in acute exacerbation. -Continue albuterol -Continue duoneb -Continue solu medrol -Continue spiriva Qualifiers: COPD type: chronic bronchitis Chronic bronchitis type: unspecified Qualified Code(s): J42 - Unspecified chronic bronchitis (3) Hemoptysis Current Visit: Yes Status: Resolved Presented with acute onset of hemoptysis. BAL did not show bleeding. She was on coumadin for atrial fibrillation. Her hemoptysis was likely secondary to cough from underlying COPD. Continue home coumadin now that hemoptysis is resolved. Subjective Principal diagnosis: Hemoptysis Interval history: Ms. Rodas was seen at bedside this morning. Her vitals were stable overnight. She had no new episodes of hemoptysis. Her shortness of breath is stable and she is on 2 liters of supplemental oxygen, unchanged from home. She denies fever, ch ills, nausea, emesis or chest pain. Objective PUL Vital signs: Last Vital Signs Temp 97.4 F L 05/23/18 05:08 Pulse 78 05/23/18 05:08 Resp 19 05/23/18 05:08 BP 150/63 05/23/18 05:08 Pulse Ox 96 05/23/18 05:08 General appearance: no acute distress, alert Eyes: nonicteric ENT: oropharynx moist Effort: normal Auscultation: bilateral: diminished breath sounds, rhonchi Cardiovascular: regular rate and rhythm Gastrointestinal: soft, non-tender, non-distended Integumentary: normal Extremities: no edema Musculoskeletal: no deformities normal mental status mood appropriate, affect normal Results - Laboratory Findings CBC and BMP: 05/23/18 04:52 05/23/18 04:52 PT/INR, D-dimer PT 10.9 Seconds (9.4-12.1) 05/23/18 04:52 Abnormal lab findings: Abnormal lab results Hgb 9.1 g/dL (11.5-15.4) L 05/23/18 04:52 Hct 31.0 % (35.3-44.9) L 05/23/18 04:52 MCV 76.9 fL (83.0-100.0) L 05/23/18 04:52 MCH 22.6 pg (28.0-33.3) L 05/23/18 04:52 MCHC 29.4 g/dL (31.6-35.5) L 05/23/18 04:52 RDW 21.6 % (11.5-14.5) H 05/23/18 04:52 Hypochromasia Present (Not Present) A 05/22/18 04:26 Anisocytosis 2+ (Not Present) A 05/22/18 04:26 Microcytosis Present (Not Present) A 05/22/18 04:26 Carbon Dioxide 36 mEq/L (23-29) H 05/23/18 04:52 BUN/Creatinine Ratio 38 (6-26) H 05/23/18 04:52 Glucose 206 mg/dL (70-105) H 05/23/18 04:52 POC Glucose 211 mg/dL (70-99) H 05/23/18 07:01 Calculated Osmolality 304 (280-300) H 05/23/18 04:52 Fluid Appearance Slightly Hazy (Clear) A 05/22/18 09:56 - Microbiology Findings Microbiology Findings: Microbiology, Last 48 Hours 05/22/18 09:56 Respiratory Culture - Preliminary Left Upper Lobe Lung No growth. 05/22/18 03:35 Sputum Culture - Final Sputum 05/21/18 18:07 Legionella Antigen - Final Urine,Clean Catch Streptococcus pneumoniae Antigen (M - Final - Clinical Findings Intake & Output: Intake & Output 05/22/18 05/23/18 05/23/18 23:59 07:59 15:59 Intake Total 1031 / 1031 100 / 100 Output Total 200 / 200 0 / 0 Balance 831 / 831 100 / 100 Consult Discharge Plan - Plan Referrals: Justice Tapia MD [Primary Care Provider] - <Jayleen Vasquez - Last Filed: 05/23/18 15:12> Date of Encounter: 05/23/18 Objective PUL Vital signs: Last Vital Signs Temp 97.2 F L 05/23/18 15:03 Pulse 87 05/23/18 15:03 Resp 14 05/23/18 15:03 BP 152/63 05/23/18 15:03 Pulse Ox 93 05/23/18 15:03 Results - Laboratory Findings CBC and BMP: 05/23/18 04:52 05/23/18 04:52 PT/INR, D-dimer PT 10.9 Seconds (9.4-12.1) 05/23/18 04:52 Abnormal lab findings: Abnormal lab results Hgb 9.1 g/dL (11.5-15.4) L 05/23/18 04:52 Hct 31.0 % (35.3-44.9) L 05/23/18 04:52 MCV 76.9 fL (83.0-100.0) L 05/23/18 04:52 MCH 22.6 pg (28.0-33.3) L 05/23/18 04:52 MCHC 29.4 g/dL (31.6-35.5) L 05/23/18 04:52 RDW 21.6 % (11.5-14.5) H 05/23/18 04:52 Hypochromasia Present (Not Present) A 05/22/18 04:26 Anisocytosis 2+ (Not Present) A 05/22/18 04:26 Microcytosis Present (Not Present) A 05/22/18 04:26 Carbon Dioxide 36 mEq/L (23-29) H 05/23/18 04:52 BUN/Creatinine Ratio 38 (6-26) H 05/23/18 04:52 Glucose 206 mg/dL (70-105) H 05/23/18 04:52 POC Glucose 280 mg/dL (70-99) H 05/23/18 11:15 Calculated Osmolality 304 (280-300) H 05/23/18 04:52 Fluid Appearance Slightly Hazy (Clear) A 05/22/18 09:56 - Microbiology Findings Microbiology Findings: Microbiology, Last 48 Hours 05/22/18 09:56 Acid Fast Stain - Final Left Upper Lobe Lung 05/22/18 09:56 Respiratory Culture - Preliminary Left Upper Lobe Lung No growth. 05/22/18 03:35 Sputum Culture - Final Sputum 05/21/18 18:07 Legionella Antigen - Final Urine,Clean Catch Streptococcus pneumoniae Antigen (M - Final - Clinical Findings Intake & Output: Intake & Output 05/22/18 05/23/18 05/23/18 23:59 07:59 15:59 Intake Total 1031 / 1031 100 / 100 240 / 240 Output Total 200 / 200 0 / 0 0 / 0 Balance 831 / 831 100 / 100 240 / 240 - Attending Attestation I examined this patient and my medical decision-making was reviewed with the Resident Physician. I agree with the documented findings, disposition and treatment plan as described except to the extent set forth below. Patient seen and examined. Labs, radiology, chart personally reviewed. Agree with resident's history and physical, assessment, plan with following co mments: DENTAL INSURANCE BILLER: Patient follows commands, Pulmonary: Acceptable oxygenation and ventilation. Patient stated she is feeling slightly better and she has been seen by infectious disease team and she denies any hemoptysis at this time for that reason her anticoagulation need to be restarted. Cardiovascular: stable , however patient still complaining of chest pain which is slightly better. Patient has significant cardiovascular disease history and it is important for her to be on anticoagulation and will recommend to restart anticoagulation even though she has a history of hemoptysis.
[2018-05-23 09:46] LABS: Troponin I < 0.03 ng/mL (< 0.04)
[2018-05-23] MEDS: Budesonide Neb 0.25 MG/2 ML IH SCH ×2 (10:19→22:12)
[2018-05-23] MEDS: Tiotropium 18 MCG inhalation IH SCH (10:20)
[2018-05-23] MEDS: Nitroglycerin 0.1 MG PATCH.TD24 TD SCH (10:49)
[2018-05-23] MEDS: Nitroglycerin 0.2 MG PATCH.TD24 TD SCH (10:49)
[2018-05-23] MEDS: Benzonatate 100 MG CAPSULE PO SCH (10:50)
[2018-05-23] MEDS: Furosemide 20 MG TABLET PO SCH (10:50)
[2018-05-23] MEDS: Cholecalciferol (D-3) 1,000 UNIT TABLET PO SCH (10:50)
[2018-05-23] MEDS: Diltiazem CD (24hr) 120 MG CAPSULE PO SCH ×2 (10:50→20:49)
[2018-05-23] MEDS: Insulin LISPRO 300 UNITS/3 ML VIAL SQ SCH ×4 (10:50→20:51)
[2018-05-23] MEDS: Isosorbide MONOnitrate (24 HR) 30 MG TAB.ER.24H PO SCH ×2 (10:50→20:49)
[2018-05-23] MEDS: Piperacillin/Tazobactam 3.375 GM in 0.9 % Sodium Chloride Mini Bag 100 ML IVPB SCH (10:51)
[2018-05-23] MEDS: (Ezetimibe [Zetia] 10 MG) PO SCH (10:52)
[2018-05-23] MEDS: CYANOCOBALAMIN PO SCH (10:52)
[2018-05-23] MEDS: (Fish Oil/Dha/Epa [Fish Oil 1,200 Mg Fish Oil] 1 EACH PO SCH (10:52)
[2018-05-23] MEDS: VIT B6 PO SCH (10:52)
[2018-05-23] MEDS: FOLIC AC PO SCH (10:52)
[2018-05-23] MEDS ORDERED: Acetaminophen 325 MG TABLET PO PRN (11:22)
--- NOTE | 2018-05-23 11:36 | Infectious Disease Consult ---
Date of Encounter: 05/23/18 Time of Encounter: 11:36 Assessment and Plan (1) Pulmonary nodule Status: Acute Assessment and plan: Tree in bud nodularity and pulmonary nodules demonstrated by chest CT -afebrile, WBC WNL -etiology is unclear at this time however may be infectious vs. noninfectious -source is the tree in bud nodularity in left lung -Respiratory infectious panel negative -MRSA negative -strep/legionella negative -sputum culture negative -05/21/[address] demonstrating tree in bed nodule 80, worse the left lower lobe. Findings may be infectious verse inflammatory. Additionally, dominant pulmonary nodules measuring up to 5 mm. Recommend image follow-up in 3 months. Moderate emphysema and severe coronary artery atherosclerosis. -Bronchoscopy on 05/22/2018 cytology and cultures: -acid fast negative -Gram stain canceled -respiratory culture preliminary no growth. Plan: -stop Zosyn -started Augmentin and Bactrim PO for a total of 14 days treatment -will await final results on respiratory cultures -pulmonology following -patient will need follow up on pulmonary nodules (2) Hemoptysis Status: Resolved Assessment and plan: Patient initially presented complaining of acute hemoptysis about a teaspoon in amount. She has had no other hemoptysis. -This is in setting of supra therapeutic INR from Coumadin prior to presentation may be due to patient coughing with irritation to the throat. Hemoglobin is stable no other obvious active bleeding -will continue to monitor (3) Acute exacerbation of chronic obstructive airways disease Status: Acute (4) CHF (congestive heart failure) Status: Acute Qualifiers: Heart failure type: diastolic Qualified Code(s): I50.32 - Chronic diastolic (congestive) heart failure Infectious Disease HPI - Data of Consult Consult date: 05/22/18 Requesting Physician: Margo Aguilar Primary Care Provider: Justice Tapia MD - Consult Narrative Reason for consult: Recurrent pneumonia History of present illness: Ms. Rodas is a 82 year old female with past medical history of COPD, CAD with stents, diabetes, atrial fibrillation on Coumadin, PE, breast cancer s/p mastectomy, CHF presented to [facility] on 05/21/2017 due to blood in sputum. Infectious disease was consulted on 05/22/2018 for recurrent pneumonia. An initial presentation to the ED the patient was afebrile, WBC WNL, hemoglobin 10.1, INR 1.1. Respiratory infectious panel, MRSA, strep/legionella, sputum culture negative. Pulmonology was consulted. Bronchoscopy on 05/22/2018 cytology and cultures, acid fasting negative, Gram stain canceled, respiratory culture preliminary no growth. 05/21/[address] demonstrating tree in bed nodule 80, worse the left lower lobe. Findings may be infectious verse inflammatory. Additionally, dominant pulmonary nodules measuring up to 5 mm. Recommend image follow-up in 3 months. Moderate emphysema and severe coronary artery atherosclerosis. Patient was started on Zosyn and Solu-Medrol. Upon my examination of the patient she reported that for the past few days she n oted chest tightness in dyspnea. Additionally she had cough and low-grade fevers. She noted hemoptysis after clearing her throat which was the amount of a teaspoon. She denied chills, headache, change in vision, abdominal pain, chest pain, wheezing, nausea, vomiting. She denied recent travel. She denied drug use, alcohol use, smoking. She denied exotic pets or any pets in general. She denied incarceration or known TB exposure. She stated that she was recently treated for pneumonia in March 2018 and April 2018 for which she completed IV cefepime. She had a bronchoscopy on 05/04/2018 that have been positive for Nery albicans and alcaligenes dentrificans. CC: Margo Aguilar Past Med Surg Social Fam HX - Past Medical History Attestation: Yes The following information was validated with the patient. Source: patient Medical history: atrial fibrillation, cancer, CHF, COPD, coronary artery disease, diabetes, GERD, hyperlipidemia, hypertension, pulmonary embolus, other Additional medical history: MACULAR DEGENERATION Psychiatric history: no psych history - Past Surgical History Surgical History: angioplasty/stent, appendectomy, breast surgery, cataract, cholecystectomy, pacemaker/AICD Additional surgical history: Left mastectomy, Cardiac stents X 5, PACEMAKER, RT FOOT SURG, BASAL CELL SURG FROM FACE, Multiple heart caths - Social History Smoking Status: Former smoker Smokeless Tobacco Status: No Alcohol use: none Drug use: none - Family History Father Adopted: No Family Member Ethnicity: Non- Living Status: Hx Family Cardiac Disorders: No Hx Family Respiratory Disorders: Yes Hx Family Cancer: Yes Hx Family GI Disorders: No Hx Family Endocrine Disorder: No Hx Family Neuromuscular Disorders: No Hx Family Neurologic Disorders: No Hx Family HEENT Disorders: No Hx Family Autoimmune Disorders: No Mother Living Status: Hx Family Cardiac Disorders: Yes Hx Family Endocrine Disorder: Yes Sister Living Status: Still Living Hx Family Cancer: Yes (Breast cancer) Infectious Disease-CN:Meds RX: Albuterol Sulfate [Albuterol Inhaler] 2 puff IH Q4H PRN 11/28/14 [History] RX: Calcium Carbonate/Vitamin D3 [Calcium 250-D Tablet] 1 each PO BID 11/28/14 [History] RX: Formoterol Fumarate [Perforomist] 20 mcg IH BID 11/28/14 [History] RX: Nitroglycerin 0.2 mg TD DAILY 11/28/14 [History] RX: Sotalol HCl [Betapace] 120 mg PO BID 11/28/14 [History] RX: Cholecalciferol (D-3) [Vitamin D] 1,000 unit PO DAILY 04/28/16 [History] RX: Diltiazem CD (24hr) [Cardizem CD] 120 mg PO BID 04/28/16 [History] RX: Fish Oil/Dha/Epa [Fish Oil 1,200 mg Fish Oil] 1 each PO DAILY 06/01/16 [History] RX: Tiotropium [Spiriva] 18 mcg IH DAILY 08/24/17 [History] RX: Aspirin [Lo-Dose Aspirin EC] 81 mg PO DAILY 01/18/18 [History] RX: Cyanocobalamin/Folic AC/Vit B6 [Folbic Tablet] 1 each PO DAILY 01/18/18 [History] RX: Budesonide Neb [Pulmicort Neb] 0.25 mg IH BIDR 03/30/18 [History] RX: Nitroglycerin 0.1 mg TD DAILY 03/30/18 [History] RX: Latanoprost [Xalatan] 1 drop OP HS 04/16/18 [History] RX: Isosorbide MONOnitrate (24 HR) [Imdur] 90 mg PO DAILY 05/03/18 [History] RX: Atorvastatin Calcium [Lipitor] 80 mg PO HS 05/21/18 [History] RX: Clopidogrel [Plavix] 75 mg PO DAILY 05/21/18 [History] RX: Ezetimibe [Zetia] 10 mg PO DAILY 05/21/18 [History] RX: Furosemide [Lasix] 20 mg PO DAILY 05/21/18 [History] RX: Potassium Chloride [Klor-Con 10] 10 meq PO BIDWM 05/21/18 [History] RX: Amoxicillin/Clavulanate [Augmentin] 875 mg PO BIDWM 6 Days #12 tablet 05/24/18 [Rx] RX: Sulfamethoxazole/Trimeth DS [Bactrim Ds] 1 each PO BID 13 Days #26 tablet 05/24/18 [Rx] RX: Warfarin Sodium 7.5 mg PO DAILY #0 05/24/18 [Rx] predniSONE [PredniSONE] 40 mg PO DAILY 5 Days #5 tablet 05/24/18 [Rx] Allergy/AdvReac Type Severity Reaction Status Date / Time bacitracin Allergy Blister Verified 04/20/18 22:28 [From Neosporin ([id number])] cetirizine Allergy Confusion Verified 04/20/18 22:28 ciprofloxacin Allergy Difficulty Verified 04/20/18 22:28 Breathing codeine Allergy Drowsy Verified 04/20/18 22:28 diazepam [From Valium] Allergy See Verified 04/20/18 22:28 Comments miconazole Allergy Blister Verified 04/20/18 22:28 [From Neosporin AF] Neomycin Allergy Blister Verified 04/20/18 22:28 Penicillins Allergy See Verified 04/20/18 22:28 Comments polymyxin B Allergy Blister Verified 04/20/18 22:28 promethazine [From Phenergan] Allergy See Verified 04/20/18 22:28 Comments ranolazine [From Ranexa] Allergy See Verified 03/23/18 17:06 Comments Sulfa (Sulfonamide Allergy Confusion Verified 08/24/17 05:53 Antibiotics) - Constitutional Constitutional: Present: fever(s). Absent: chills, weakness - EENT Eyes: Absent: change in vision, loss of vision - Cardiovascular Cardiovascular: Absent: chest pain, edema, syncope - Respiratory Respiratory: Present: cough, dyspnea, hemoptysis. Absent: wheezing - Gastrointestinal Gastrointestinal: Absent: abdominal pain, nausea, vomiting - Genitourinary Genitourinary: Absent: dysuria - Integumentary Integumentary: Absent: new lesions, non-healing lesions - Neurological Neurological: Absent: confusion, dizziness - Hematologic/Lymphatic Hematologic/Lymphatic: Present: easy bleeding, easy bruising Exam - Constitutional Vitals: Temp Pulse Resp BP Pulse Ox 98.2 F 86 18 192/80 95 05/23/18 11:18 05/23/18 11:18 05/23/18 11:18 05/23/18 11:18 05/23/18 11:18 Exam: Gen.: Vitals noted. No acute distress. AAOx3 HEENT: oropharynx clear, Normocephalic, atraumatic Neck: Supple. No adenopathy. Cardiac: RRR, no murmur, +S1/S2 Pulmonary: diminished breath sounds bilaterally, no wheezes, rales or rhonchi, equal chest expansion Abdomen: soft, nontender, Bowel sounds noted, no guarding MSK: ROM intact, no joint swelling noted Extremities: no BLE edema, nontender calf, no cyanosis or clubbing Neuro: A&Ox3, moves all extremities, no focal deficits Psych: Appropriate mood and behavior Infectious Disease CN: Results - Labs CBC & Chem 7: 05/24/18 07:33 05/23/18 04:52 Cultures: Cultures 05/22/18 09:56 Respiratory Culture - Preliminary Left Upper Lobe Lung No growth. 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 pertussis DNA (PCR) Not Detected (Not Detect) B.parapertussis DNA PCR Not Detected (Not Detect) Coronavirus OC43 (PCR) Not Detected (Not Detect) Coronavirus HKU1 (PCR) Not Detected (Not Detect) Coronavirus 229E (PCR) Not Detected (Not Detect) Coronavirus NL63 (PCR) Not Detected (Not Detect) Human Metapneumovir PCR Not Detected (Not Detect) Influenza A (H1) PCR Not Detected (Not Detect) Influ A (H1N1/09) PCR Not Detected (Not Detect) Influenza A (H3) PCR Not Detected (Not Detect) Influenza A Untype (PCR) Not Detected (Not Detect) Influenza Type B (PCR) Not Detected (Not Detect) M.pneumoniae DNA (PCR) Not Detected (Not Detect) Parainfluenza 1 (PCR) Not Detected (Not Detect) Parainfluenza 2 (PCR) Not Detected (Not Detect) Parainfluenza 3 (PCR) Not Detected (Not Detect) Parainfluenza 4 (PCR) Not Detected (Not Detect) RSV (PCR) Not Detected (Not Detect) Entero/Rhino (PCR) Not Detected (Not Detect) Consult Discharge Plan - Plan Referrals: Justice Tapia MD [Primary Care Provider] - 05/30/18 2:00 pm Prescriptions: RX: Amoxicillin/Clavulanate [Augmentin] 875 mg PO BIDWM 6 Days #12 tablet predniSONE [PredniSONE] 40 mg PO DAILY 5 Days #5 tablet RX: Sulfamethoxazole/Trimeth DS [Bactrim Ds] 1 each PO BID 13 Days #26 tablet - Attending Attestation I examined this patient and my medical decision-making was reviewed with the Resident Physician. I agree with the documented findings, disposition and treatment plan as described except to the extent set forth below. This is an addendum to original report dictated by resident physician. Please refer to resident's note for full detail. Patient is an 82-year-old woman with extensive past medical history mentioned below including just heart failure, COPD history of tobacco use quit about 20 years ago and what she mentions as recurrent pneumonia. Patient came in had no SIRS criteria, chest x-ray suggestive of possible tree-in-bud opacities on the left lung. Patient also was noted to have pulmonary nodule on the CT scan. So far workup including MRSA screen, urine streptococcus and legionella antigen, sputum culture all were negative. Infectious panel was also obtained came back negative. Patient has been started on broad-spectrum antibiotics we were asked to evaluate the patient's make further recommendations. Assessment and plan: COPD exacerbation CHF Tree-in-bud opacities Pulmonary nodule Recommendations Patient's previous BAL culture from right upper lobe were positive for Alcaligenes denitrificans Based on that we will treat the patient with combination of Bactrim and Augmentin for 14 days and hopefully that should take care of the symptoms. Patient also tells me that she has been allergic to sulfa which was 15 years old she does not remember the reaction I told her she might if we give you Bactrim and see if he ever reaction to it now and she is receptive to the idea.
[2018-05-23] MEDS ORDERED: Ondansetron 4 MG/2 ML VIAL IVP PRN (14:36)
[2018-05-23] MEDS: Sulfamethoxazole/Trimeth DS 1 EACH TABLET PO SCH ×2 (15:19→20:50)
--- NOTE | 2018-05-23 18:41 | Internal Med Progress Note ---
Hospitalist Progress Note - Encounter Date of Encounter: 05/23/18 Time of Encounter: 10:39 - Subjective Interval History: Feeling much better today. No recurrent hemoptysis. Breathing has improved. Admits to an episode overnight of SOB and chest tightness that woke her from sleep. States that the episode resolved after about 25 mintues. O2 sat dropped to 93 with HR in the 60s. Patient looks well and was sitting comfortably in chair. Denies fever, chest pain, sob, lightheadedness, pain. - Exam Vitals: Temp Pulse Resp BP Pulse Ox 97.2 F L 87 14 152/63 93 05/23/18 15:03 05/23/18 15:03 05/23/18 15:03 05/23/18 15:03 05/23/18 15:03 Exam: General: no acute distress, sitting comfortably in chair Head: normocephalic, atraumatic Eyes: EOMI, sclera anicteric, conjunctiva clear and without discharge Neck: supple, trachea midline Lungs: Diminished breath sounds Heart: RRR, normal S1 and S2, no murmurs GI: abdomen soft, non-tender, non-distended. normoactive bowel sounds Extremities: no edema or cyanosis Neuro: A&Ox3. no focal deficits. no speech difficulty or abnormality Skin: warm, dry, intact - Assessment and Plan (1) Hemoptysis Current Visit: Yes Status: Resolved Assessment and Plan: Acute onset with tsp amount of hemoptysis, likely secondary to irritation from repetitive coughing No recurrence since admission On coumadin for AFib, hgb stable Continue coumadin for AFib Will continue to monitor H/H (2) Pneumonia Current Visit: Yes Status: Acute Assessment and Plan: Completed 7 day course of cefepime as an outpatient Has continued to have cough and SOB Recent (+) BAL cx for Alcigenes Dentirifican s/p bronch on 05/22, BAL culture pending No recurrent hemoptysis Pulm recommended ID c/s Continue Augmentin and Bactrim per ID recs (3) COPD (chronic obstructive pulmonary disease) Current Visit: Yes Status: Chronic Assessment and Plan: Chronic, no in acute exacerbation On 2L supplemental O2 at home 92% on 2L NC Continue albuterol, duonebs, spiriva, and steroids per Pulm recs (4) Diabetes mellitus Current Visit: No Status: Chronic Assessment and Plan: SSI Accu-checks (5) Coronary artery disease Current Visit: Yes Status: Chronic Assessment and Plan: Continue home meds Resume antiplatelet therapy (6) Chronic diastolic CHF (congestive heart failure) Current Visit: Yes Status: Chronic Assessment and Plan: Chronic, stable Continue home meds (7) Afib Current Visit: Yes Status: Acute Assessment and Plan: Chronic, stable Resume anticoagulation Continue Cardizem and Sotalol DVT Prophylaxis: SCDs - Time Spent with Patient Total time spent is greater than 50% in coordination of care (as documented) at patient's floor/unit and/or counseling patient: Internal Medicine: Result - Labs CBC & Chem 7: 05/23/18 04:52 05/23/18 04:52 Labs: Short CBC 05/23/18 Range/Units 04:52 WBC 8.6 (4.3-11.1) K/mcL Hgb 9.1 L (11.5-15.4) g/dL Hct 31.0 L (35.3-44.9) % Plt Count 238 (140-400) K/mcL Neutrophils # 7.4 (1.6-8.9) K/mcL BMP 05/23/18 04:52 Sodium 142 Potassium 4.2 Chloride 102 Carbon Dioxide 36 H BUN 23 Creatinine 0.60 Glucose 206 H Calcium 8.9 Cardiac Enzymes 05/23/18 Range/Units 04:52 Troponin I < 0.03 (< 0.04) ng/mL - ABG Interpretation ABG results: PT/INR, D-dimer PT 10.9 Seconds (9.4-12.1) 05/23/18 04:52 Consult Discharge Plan - Plan Referrals: Justice Tapia MD [Primary Care Provider] - _ (2) Pneumonia Qualifiers: Pneumonia type: due to unspecified organism Laterality: left Lung location: lower lobe of lung Qualified Code(s): J18.1 - Lobar pneumonia, unspecified organism (3) COPD (chronic obstructive pulmonary disease) Qualifiers: COPD type: emphysema Emphysema type: unspecified Qualified Code(s): J43.9 - Emphysema, unspecified (4) Diabetes mellitus Qualifiers: Diabetes mellitus type: type 2 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 transplanted heart: [place] heart Associated angina: with stable angina Qualified Code(s): I25.118 - Atherosclerotic heart disease of [place] coronary artery with other forms of angina pectoris (7) Afib Qualifiers: Atrial fibrillation type: unspecified Qualified Code(s): I48.91 - Unspecified atrial fibrillation
[2018-05-23] MEDS ORDERED: *HR* Warfarin 7.5 MG TABLET PO SCH (19:45)
[2018-05-23] MEDS: Latanoprost 2.5 ML BOTTLE BOTH EYES SCH (20:50)
[2018-05-23] MEDS ORDERED: Insulin DETEMIR 100 UNIT/ML X5UNITS SQ SCH (21:00)
[2018-05-24] MEDS: MethylPREDNISolone 40 MG/ML VIAL IVP SCH (05:57)
[2018-05-24] MEDS: Tiotropium 18 MCG inhalation IH SCH (07:36)
[2018-05-24] MEDS: Budesonide Neb 0.25 MG/2 ML IH SCH (07:36)
[2018-05-24 08:02] LABS: Hematocrit 31.1 % (35.3-44.9); Hemoglobin 9.4 g/dL (11.5-15.4)
[2018-05-24] MEDS: Nitroglycerin 0.1 MG PATCH.TD24 TD SCH (08:09)
[2018-05-24] MEDS: Furosemide 20 MG TABLET PO SCH (08:10)
[2018-05-24] MEDS: Diltiazem CD (24hr) 120 MG CAPSULE PO SCH (08:10)
[2018-05-24] MEDS: Isosorbide MONOnitrate (24 HR) 30 MG TAB.ER.24H PO SCH (08:10)
[2018-05-24] MEDS: Nitroglycerin 0.2 MG PATCH.TD24 TD SCH (08:10)
[2018-05-24] MEDS: Sulfamethoxazole/Trimeth DS 1 EACH TABLET PO SCH (08:10)
[2018-05-24] MEDS: Cholecalciferol (D-3) 1,000 UNIT TABLET PO SCH (08:10)
[2018-05-24] MEDS: Insulin LISPRO 300 UNITS/3 ML VIAL SQ SCH ×2 (08:17→12:22)
--- NOTE | 2018-05-24 08:49 | Pulmonology Progress Note ---
<Yadi De Souza - Last Filed: 05/24/18 13:45> Date of Encounter: 05/24/18 Time of Encounter: 09:10 Assessment and Plan (1) Pneumonia Status: Acute Completed cefepime for pneumonia outpatient and continues to have cough and shortness of breath. -On Augmentin and Bactrim, will be discharged for total of 7 days -BAL culture no growth, cytology pending Qualifiers: Pneumonia type: due to unspecified organism Laterality: left Lung location: lower lobe of lung Qualified Code(s): J18.1 - Lobar pneumonia, unspecified organism (2) COPD (chronic obstructive pulmonary disease) Status: Chronic History of chronic COPD. On 2 liters of home supplement. Does not appear to be in acute exacerbation. -Continue albuterol -Continue duoneb -Can be discharged with 40 mg prednisone for 5 days -Continue spiriva Qualifiers: COPD type: chronic bronchitis Chronic bronchitis type: unspecified Qualified Code(s): J42 - Unspecified chronic bronchitis (3) Hemoptysis Status: Resolved Presented with acute onset of hemoptysis. BAL did not show bleeding. She was on coumadin for atrial fibrillation. Her hemoptysis was likely secondary to cough from underlying COPD. Continue home coumadin now that hemoptysis is resolved. Subjective Principal diagnosis: Hemoptysis Interval history: Ms. Rodas was seen at bedside this morning. Her vitals were stable overnight. Her shortness of breath has significantly improved and she is on 2 liters of s upplemental oxygen, unchanged from home. She denies fever, chills, nausea, emesis or chest pain. Objective PUL Vital signs: Last Vital Signs Temp 97.5 F L 05/24/18 07:37 Pulse 68 05/24/18 07:37 Resp 18 05/24/18 07:37 BP 184/70 05/24/18 07:37 Pulse Ox 99 05/24/18 07:37 General appearance: no acute distress, alert Eyes: nonicteric ENT: oropharynx moist Neck: supple, no lymphadenopathy Auscultation: bilateral: clear Gastrointestinal: normoactive bowel sounds, soft, non-tender, non-distended Integumentary: normal Extremities: no cyanosis, no edema Musculoskeletal: no deformities normal mental status, pupils equal and round mood appropriate, affect normal Results - Laboratory Findings CBC and BMP: 05/24/18 07:33 05/23/18 04:52 PT/INR, D-dimer PT 10.9 Seconds (9.4-12.1) 05/23/18 04:52 Abnormal lab findings: Abnormal lab results Hgb 9.4 g/dL (11.5-15.4) L 05/24/18 07:33 Hct 31.1 % (35.3-44.9) L 05/24/18 07:33 MCV 76.9 fL (83.0-100.0) L 05/23/18 04:52 MCH 22.6 pg (28.0-33.3) L 05/23/18 04:52 MCHC 29.4 g/dL (31.6-35.5) L 05/23/18 04:52 RDW 21.6 % (11.5-14.5) H 05/23/18 04:52 Hypochromasia Present (Not Present) A 05/22/18 04:26 Anisocytosis 2+ (Not Present) A 05/22/18 04:26 Microcytosis Present (Not Present) A 05/22/18 04:26 Carbon Dioxide 36 mEq/L (23-29) H 05/23/18 04:52 BUN/Creatinine Ratio 38 (6-26) H 05/23/18 04:52 Glucose 206 mg/dL (70-105) H 05/23/18 04:52 POC Glucose 280 mg/dL (70-99) H 05/23/18 20:39 Calculated Osmolality 304 (280-300) H 05/23/18 04:52 Fluid Appearance Slightly Hazy (Clear) A 05/22/18 09:56 - Microbiology Findings Microbiology Findings: Microbiology, Last 48 Hours 05/22/18 09:56 Respiratory Culture - Final Left Upper Lobe Lung 05/22/18 09:56 Acid Fast Stain - Final Left Upper Lobe Lung 05/22/18 03:35 Sputum Culture - Final Sputum - Clinical Findings Intake & Output: Intake & Output 05/23/18 05/24/18 05/24/18 23:59 07:59 15:59 Intake Total 480 / 480 0 / 0 Output Total 0 / 0 0 / 0 Balance 480 / 480 0 / 0 Consult Discharge Plan - Plan Instructions: Heart Failure (DC), Chronic Obstructive Pulmonary Disease (DC) Referrals: Justice Tapia MD [Primary Care Provider] - 05/30/18 2:00 pm Prescriptions: RX: Amoxicillin/Clavulanate [Augmentin] 875 mg PO BIDWM 6 Days #12 tablet predniSONE [PredniSONE] 40 mg PO DAILY 5 Days #5 tablet RX: Sulfamethoxazole/Trimeth DS [Bactrim Ds] 1 each PO BID 13 Days #26 tablet <Jayleen Vasquez M - Last Filed: 05/24/18 22:31> Date of Encounter: 05/24/18 Objective PUL Vital signs: Last Vital Signs Temp 98.8 F 05/24/18 11:14 Pulse 70 05/24/18 11:14 Resp 18 05/24/18 11:14 BP 179/68 05/24/18 11:14 Pulse Ox 95 05/24/18 11:14 Results - Laboratory Findings CBC and BMP: 05/24/18 07:33 05/23/18 04:52 PT/INR, D-dimer PT 10.9 Seconds (9.4-12.1) 05/23/18 04:52 Abnormal lab findings: Abnormal lab results Hgb 9.4 g/dL (11.5-15.4) L 05/24/18 07:33 Hct 31.1 % (35.3-44.9) L 05/24/18 07:33 MCV 76.9 fL (83.0-100.0) L 05/23/18 04:52 MCH 22.6 pg (28.0-33.3) L 05/23/18 04:52 MCHC 29.4 g/dL (31.6-35.5) L 05/23/18 04:52 RDW 21.6 % (11.5-14.5) H 05/23/18 04:52 Hypochromasia Present (Not Present) A 05/22/18 04:26 Anisocytosis 2+ (Not Present) A 05/22/18 04:26 Microcytosis Present (Not Present) A 05/22/18 04:26 Carbon Dioxide 36 mEq/L (23-29) H 05/23/18 04:52 BUN/Creatinine Ratio 38 (6-26) H 05/23/18 04:52 Glucose 206 mg/dL (70-105) H 05/23/18 04:52 POC Glucose 280 mg/dL (70-99) H 05/23/18 20:39 Calculated Osmolality 304 (280-300) H 05/23/18 04:52 Fluid Appearance Slightly Hazy (Clear) A 05/22/18 09:56 - Microbiology Findings Microbiology Findings: Microbiology, Last 48 Hours 05/22/18 09:56 Respiratory Culture - Final Left Upper Lobe Lung 05/22/18 09:56 Acid Fast Stain - Final Left Upper Lobe Lung - Clinical Findings Intake & Output: Intake & Output 05/24/18 05/24/18 05/24/18 07:59 15:59 23:59 Intake Total 0 / 0 480 / 480 Output Total 0 / 0 Balance 0 / 0 480 / 480 - Attending Attestation I examined this patient and my medical decision-making was reviewed with the Resident Physician. I agree with the documented findings, disposition and treatment plan as described except to the extent set forth below. Patient seen and examined. Labs, radiology, chart personally reviewed. 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 patient is feeling better and to follow up as outpatient. Patient already is scheduled to see physician in the clinic. Patient understand if she has any evidence of hemoptysis and to follow up and called the office or present to emergency room.
[2018-05-24] MEDS ORDERED: Aspirin Enteric Coated 81 MG Tablet PO SCH (09:00)
--- NOTE | 2018-05-24 09:36 | Discharge Summary ---
<Angelica Buenrostro - Last Filed: 05/24/18 11:45> - NOTES TO OUTPATIENT PROVIDER Notes to Outpatient Provider: Hospital follow up with PCP within 1 week. Patient will need f/u imaging in 3 months for pulmonary nodules. Advised patient to decrease Warfarin dose to 1/2 tab on Wednesday and Wednesday while on antibiotics. Recheck INR the day after completion of antibiotics. Cytology results pending. Orders not resulted at time of discharge: Pending orders 05/22/18 09:44 Cytology [PTH] Routine 05/22/18 09:56 AFB Culture, Respiratory [TB] Routine AFB Smear [TB] Routine Fungal Culture [MYC] Routine Legionella Culture [RM] Routine Resp.Virus Panel,Body Fl Routine Date of Encounter: 05/24/18 Time of Encounter: 09:36 - Discharge Diagnosis (1) Hemoptysis Priority: Primary Status: Resolved (2) Pneumonia Priority: Secondary Status: Acute Qualifiers: Pneumonia type: due to unspecified organism Laterality: left Lung location: lower lobe of lung Qualified Code(s): J18.1 - Lobar pneumonia, unspecified organism (3) COPD (chronic obstructive pulmonary disease) Priority: Secondary Status: Chronic Qualifiers: COPD type: emphysema Emphysema type: unspecified Qualified Code(s): J43.9 - Emphysema, unspecified (4) Diabetes mellitus Priority: Secondary Status: Chronic Qualifiers: Diabetes mellitus type: type 2 Diabetes mellitus termite treater insulin use: without termite treater use Diabetes mellitus complication status: without complication Qualified Code(s): E11.9 - Type 2 diabetes mellitus without complications (5) Coronary artery disease Priority: Secondary Status: Chronic Qualifiers: Coronary Disease-Associated Artery/Lesion type: [place] artery [place] vs. transplanted heart: [place] heart Associated angina: with stable angina Qualified Code(s): I25.118 - Atherosclerotic heart disease of [place] coronary artery with other forms of angina pectoris (6) Chronic diastolic CHF (congestive heart failure) Priority: Secondary Status: Chronic (7) Afib Priority: Secondary Status: Chronic Qualifiers: Atrial fibrillation type: unspecified Qualified Code(s): I48.91 - Unspecified atrial fibrillation Hospital course: Ms. Rodas is a 82 year old female Discharge discussed with: patient - Time Spent with Patient Total time spent providing and/or coordinating discharge services: Greater than 30 minutes - Discharge Medications Prescriptions: RX: Amoxicillin/Clavulanate [Augmentin] 875 mg PO BIDWM 6 Days #12 tablet predniSONE [PredniSONE] 40 mg PO DAILY 5 Days #5 tablet RX: Sulfamethoxazole/Trimeth DS [Bactrim Ds] 1 each PO BID 13 Days #26 tablet Home Medications: RX: Albuterol Sulfate [Albuterol Inhaler] 2 puff IH Q4H PRN 11/28/14 [History] RX: Calcium Carbonate/Vitamin D3 [Calcium 250-D Tablet] 1 each PO BID 11/28/14 [History] RX: Formoterol Fumarate [Perforomist] 20 mcg IH BID 11/28/14 [History] RX: Nitroglycerin 0.2 mg TD DAILY 11/28/14 [History] RX: Sotalol HCl [Betapace] 120 mg PO BID 11/28/14 [History] RX: Cholecalciferol (D-3) [Vitamin D] 1,000 unit PO DAILY 04/28/16 [History] RX: Diltiazem CD (24hr) [Cardizem CD] 120 mg PO BID 04/28/16 [History] RX: Fish Oil/Dha/Epa [Fish Oil 1,200 mg Fish Oil] 1 each PO DAILY 06/01/16 [History] RX: Tiotropium [Spiriva] 18 mcg IH DAILY 08/24/17 [History] RX: Aspirin [Lo-Dose Aspirin EC] 81 mg PO DAILY 01/18/18 [History] RX: Cyanocobalamin/Folic AC/Vit B6 [Folbic Tablet] 1 each PO DAILY 01/18/18 [History] RX: Budesonide Neb [Pulmicort Neb] 0.25 mg IH BIDR 03/30/18 [History] RX: Nitroglycerin 0.1 mg TD DAILY 03/30/18 [History] RX: Latanoprost [Xalatan] 1 drop OP HS 04/16/18 [History] RX: Isosorbide MONOnitrate (24 HR) [Imdur] 90 mg PO DAILY 05/03/18 [History] RX: Atorvastatin Calcium [Lipitor] 80 mg PO HS 05/21/18 [History] RX: Clopidogrel [Plavix] 75 mg PO DAILY 05/21/18 [History] RX: Ezetimibe [Zetia] 10 mg PO DAILY 05/21/18 [History] RX: Furosemide [Lasix] 20 mg PO DAILY 05/21/18 [History] RX: Potassium Chloride [Klor-Con 10] 10 meq PO BIDWM 05/21/18 [History] RX: Amoxicillin/Clavulanate [Augmentin] 875 mg PO BIDWM 6 Days #12 tablet 05/24/18 [Rx] RX: Sulfamethoxazole/Trimeth DS [Bactrim Ds] 1 each PO BID 13 Days #26 tablet 05/24/18 [Rx] RX: Warfarin Sodium 7.5 mg PO DAILY #0 05/24/18 [Rx] predniSONE [PredniSONE] 40 mg PO DAILY 5 Days #5 tablet 05/24/18 [Rx] Allergies/Adverse Reactions: Allergy/AdvReac Type Severity Reaction Status Date / Time bacitracin Allergy Blister Verified 04/20/18 22:28 [From Neosporin ([id number])] cetirizine Allergy Confusion Verified 04/20/18 22:28 ciprofloxacin Allergy Difficulty Verified 04/20/18 22:28 Breathing codeine Allergy Drowsy Verified 04/20/18 22:28 diazepam [From Valium] Allergy See Verified 04/20/18 22:28 Comments miconazole Allergy Blister Verified 04/20/18 22:28 [From Neosporin AF] Neomycin Allergy Blister Verified 04/20/18 22:28 Penicillins Allergy See Verified 04/20/18 22:28 Comments polymyxin B Allergy Blister Verified 04/20/18 22:28 promethazine [From Phenergan] Allergy See Verified 04/20/18 22:28 Comments ranolazine [From Ranexa] Allergy See Verified 03/23/18 17:06 Comments Sulfa (Sulfonamide Allergy Confusion Verified 08/24/17 05:53 Antibiotics) Date of admission: 05/21/18 13:21 Primary care physician: Justice Tapia MD Consults: 05/21/18 14:03 Consult to Nutrition [CONS] Routine Comment: Consulting Provider: NUTRITION Reason for Dietary Consult: MST Score Consult to Pastoral Services [CONS] Routine Comment: 05/22/18 11:50 Consult to Infectious Diseases [CONS] Routine Consulting Provider: Infectious Disease Page Reason for Consult: recurrent pneumonia Call Completed: No 05/23/18 08:48 Consult to Nurse Navigator [CONS] Routine Comment: pneumonia, copd Discharging clinician: Angelica Buenrostro Anticipated date of discharge: 05/24/18 - Constitutional Vitals: Temp Pulse Resp BP Pulse Ox 97.5 F L 68 18 184/70 99 05/24/18 07:37 05/24/18 07:37 05/24/18 07:37 05/24/18 07:37 05/24/18 07:37 General appearance: Present: A&O X 3, no acute distress Exam: General: no acute distress, sitting comfortably in chair Head: normocephalic, atraumatic Eyes: EOMI, sclera anicteric, conjunctiva clear and without discharge Neck: supple, trachea midline Lungs: Diminished breath sounds Heart: RRR, normal S1 and S2, no murmurs GI: abdomen soft, non-tender, non-distended. normoactive bowel sounds Extremities: no edema or cyanosis Neuro: A&Ox3. no focal deficits. no speech difficulty or abnormality Skin: warm, dry, intact - Head Head exam: Present: atraumatic, normocephalic - Eye Eye exam: Present: EOMI, sclera anicteric - ENT ENT exam: Present: mucous membranes moist - Neck Neck exam general surgery: Present: supple, trachea midline - Respiratory Respiratory exam: Present: CTAB (decreased breath sounds). Absent: rales, rhonchi, wheezes - Cardiovascular Cardiovascular exam: Present: RRR, +S1, +S2. Absent: diastolic murmur, systolic murmur - GI/Abdominal GI/Abdominal exam: Present: normal bowel sounds, soft. Absent: distended, guarding, tenderness - Extremities Exam Extremities exam: Present: warm. Absent: calf tenderness, cyanotic, pedal edema - Neurological Exam Neurological exam: Present: oriented X3, no focal deficits. Absent: facial droop, speech deficit - Psychiatric Psychiatric exam: Present: normal affect, normal mood - Skin Skin exam: Present: intact, warm. Absent: cyanosis, rash - Patient Status Disposition: Home, Self-Care Condition: Good Overall status at discharge: patient is progressing back to baseline - Discharge Instructions Instructions: Heart Failure (DC), Chronic Obstructive Pulmonary Disease (DC) Follow Up With: Justice Tapia MD [Primary Care Provider] - 05/30/18 2:00 pm - Diet and Activity Activity: as per physical therapy, increase activity as tolerated Diet: diabetic diet, low salt diet <Margo Aguilar M - Last Filed: 05/24/18 15:16> Orders not resulted at time of discharge: Pending orders 05/22/18 09:44 Cytology [PTH] Routine 05/22/18 09:56 AFB Culture, Respiratory [TB] Routine AFB Smear [TB] Routine Fungal Culture [MYC] Routine Legionella Culture [RM] Routine Resp.Virus Panel,Body Fl Routine Date of Encounter: 05/24/18 - Discharge Diagnosis (1) Hemoptysis, unspecified Status: Acute (2) COPD (chronic obstructive pulmonary disease) Status: Chronic Qualifiers: COPD type: emphysema Emphysema type: unspecified Qualified Code(s): J43.9 - Emphysema, unspecified (3) Pneumonia Status: Acute Qualifiers: Pneumonia type: due to unspecified organism Laterality: left Lung location: lower lobe of lung Qualified Code(s): J18.1 - Lobar pneumonia, unsp ecified organism (4) Diabetes mellitus Status: Chronic Qualifiers: Diabetes mellitus type: type 2 Diabetes mellitus termite treater insulin use: without fci use Diabetes mellitus complication status: without complication Qualified Code(s): E11.9 - Type 2 diabetes mellitus without complications (5) Coronary artery disease Status: Chronic Qualifiers: Coronary Disease-Associated Artery/Lesion type: [place] artery [place] vs. transplanted heart: [place] heart Associated angina: with stable angina Qualified Code(s): I25.118 - Atherosclerotic heart disease of [place] coronary artery with other forms of angina pectoris (6) Afib Status: Chronic (7) CHF (congestive heart failure) Status: Acute Qualifiers: Heart failure type: diastolic Qualified Code(s): I50.32 - Chronic diastolic (congestive) heart failure (8) HTN (hypertension) Status: Acute Qualifiers: Hypertension type: essential hypertension Qualified Code(s): I10 - Essential (primary) hypertension (9) History of pulmonary embolus (PE) Status: Acute Hospital course: Ms. Rodas is a 82 year old female - Time Spent with Patient Total time spent providing and/or coordinating discharge services: Date of admission: 05/21/18 13:21 Primary care physician: Justice Tapia MD Consults: 05/21/18 14:03 Consult to Nutrition [CONS] Routine Comment: Consulting Provider: NUTRITION Reason for Dietary Consult: MST Score Consult to Pastoral Services [CONS] Routine Comment: 05/22/18 11:50 Consult to Infectious Diseases [CONS] Routine Consulting Provider: Infectious Disease Page Reason for Consult: recurrent pneumonia Call Completed: No 05/23/18 08:48 Consult to Nurse Navigator [CONS] Routine Comment: pneumonia, copd - Constitutional Vitals: Temp Pulse Resp BP Pulse Ox 98.8 F 70 18 179/68 95 05/24/18 11:14 05/24/18 11:14 05/24/18 11:14 05/24/18 11:14 05/24/18 11:14 - Attending Attestation I examined this patient and my medical decision-making was reviewed with the Resident Physician. I agree with the documented discharge as above. admitted with hemoptysis. Had a bronch which was unremarkable. Has had recurrent pneumonias. Pulmonary saw and ID. Recommended Augmentin at d/c per ID. No longer had hemoptysis after first day. Anticoags and antiplatelets were resumed for 24 hrs prior to d/c. GEN: NAD CVS: RRR. S1, S2, No m/r/g RESP: CTAB ABD: Soft, NT, ND, +BS EXT: No edema. 2+ DP. No rashes NEURO: Nonfocal
--- NOTE | 2018-05-24 09:46 | Infectious Disease Progress No ---
Date of Encounter: 05/24/18 Time of Encounter: 09:43 - Assessment and Plan (1) Pulmonary nodule Current Visit: Yes Status: Acute Tree in bud nodularity and pulmonary nodules demonstrated by chest CT -afebrile, WBC WNL -etiology is unclear at this time however may be infectious vs. noninfectious -source is the tree in bud nodularity in left lung -Respiratory infectious panel negative -MRSA negative -strep/legionella negative -sputum culture negative -05/21/[address] demonstrating tree in bed nodule 80, worse the left lower lobe. Findings may be infectious verse inflammatory. Additionally, dominant pulmonary nodules measuring up to 5 mm. Recommend image follow-up in 3 months. Moderate emphysema and severe coronary artery atherosclerosis. -Bronchoscopy on 05/22/2018 cytology and cultures: -05/22/2018 final acid fast negative -Gram stain canceled -05/22/2018 respiratory culture final, normal upper respiratory tract porsha Plan: -started Augmentin and Bactrim day 2 PO for a total of 7 days treatment -pulmonology following -patient will need follow up on pulmonary nodules (2) Hemoptysis Current Visit: Yes Status: Resolved Patient initially presented complaining of acute hemoptysis about a teaspoon in amount. She has had no other hemoptysis. -This is in setting of supra therapeutic INR from Coumadin prior to presentation may be due to patient coughing with irritation to the throat. Hemoglobin is stable no other obvious active bleeding -will continue to monitor - Subjective Interval history: Ms. Rodas is a 82 year old female with past medical history of COPD, CAD with stents, diabetes, atrial fibrillation on Coumadin, PE, breast cancer s/p mastectomy, CHF presented to [facility] on 05/21/2017 due to blood in sputum. Infectious disease was consulted on 05/22/2018 for recurrent pneumonia. An initial presentation to the ED the patient was afebrile, WBC WNL, hemoglobin 10.1, INR 1.1. Respiratory infectious panel, MRSA, strep/legionella, sputum culture negative. Pulmonology was consulted. Bronchoscopy on 05/22/2018 cytology and cultures, acid fasting negative, Gram stain canceled, respiratory culture preliminary no growth. 05/21/[address] demonstrating tree in bed nodule 80, worse the left lower lobe. Findings may be infectious verse inflammatory. Additionally, dominant pulmonary nodules measuring up to 5 mm. Recommend image follow-up in 3 months. Moderate emphysema and severe coronary artery atherosclerosis. Today, the patient is alert and oriented times 3 sitting up in bed resting comfortably. She reports complete resolution of her shortness of breath and hemoptysis. She reports that she feels markedly improved back to baseline. She denies fever, chills, cough, shortness of breath, chest pain. She stated that she is to follow up with her PCP and get a repeat CT scan in a few months. Infect Dis PN-Objective Data - Labs CBC & Chem 7: 05/24/18 07:33 05/23/18 04:52 Labs: Laboratory Results - last 24 hr 05/22/18 05/22/18 05/22/18 13:48 15:49 21:20 Hgb Hct POC Glucose 282 H 221 H 233 H Troponin I 05/23/18 05/23/18 05/23/18 04:52 11:15 16:26 Hgb Hct POC Glucose 280 H 182 H Troponin I < 0.03 05/23/18 05/24/18 20:39 07:33 Hgb 9.4 L Hct 31.1 L POC Glucose 280 H Troponin I Cultures: Cultures 05/22/18 09:56 Respiratory Culture - Final Left Upper Lobe Lung 05/22/18 09:56 Acid Fast Stain - Final Left Upper Lobe Lung 05/22/18 03:35 Sputum Culture - Final Sputum 05/21/18 18:07 Legionella Antigen - Final Urine,Clean Catch Streptococcus pneumoniae Antigen (M - Final Serology 05/22/18 05/21/18 05/21/18 Range/Units 09:56 13:39 13:39 Fluid Source Left Upper Lobe Lung Fluid Volume 14 mL Fluid Appearance Slightly Hazy A (Clear) Fluid RBC MACHINE ASSEMBLER Fld Tot Nucleated Cell MACHINE ASSEMBLER Fluid Seg Neutrophil % 10.0 % Fluid Lymphocytes % 6.0 % Fluid Other Cells % 84.0 % Nasal Screen MRSA (PCR) Negative (Negative) Chlamy pneumoniae PCR Not Detected (Not Detect) Adenovirus (PCR) Not Detected (Not Detect) B. pertussis DNA (PCR) Not Detected (Not Detect) B.parapertussis DNA PCR Not Detected (Not Detect) Coronavirus OC43 (PCR) Not Detected (Not Detect) Coronavirus HKU1 (PCR) Not Detected (Not Detect) Coronavirus 229E (PCR) Not Detected (Not Detect) Coronavirus NL63 (PCR) Not Detected (Not Detect) Human Metapneumovir PCR Not Detected (Not Detect) Influenza A (H1) PCR Not Detected (Not Detect) Influ A (H1N1/09) PCR Not Detected (Not Detect) Influenza A (H3) PCR Not Detected (Not Detect) Influenza A Untype (PCR) Not Detected (Not Detect) Influenza Type B (PCR) Not Detected (Not Detect) M.pneumoniae DNA (PCR) Not Detected (Not Detect) Parainfluenza 1 (PCR) Not Detected (Not Detect) Parainfluenza 2 (PCR) Not Detected (Not Detect) Parainfluenza 3 (PCR) Not Detected (Not Detect) Parainfluenza 4 (PCR) Not Detected (Not Detect) RSV (PCR) Not Detected (Not Detect) Entero/Rhino (PCR) Not Detected (Not Detect) Exam - Constitutional Vitals: Temp Pulse Resp BP Pulse Ox 97.5 F L 68 18 184/70 99 05/24/18 07:37 05/24/18 07:37 05/24/18 07:37 05/24/18 07:37 05/24/18 07:37 Exam: Gen.: Vitals noted. No acute distress. AAOx3 HEENT: oropharynx clear, Normocephalic, atraumatic Neck: Supple. No adenopathy. Cardiac: RRR, no murmur, +S1/S2 Pulmonary: diminished breath sounds bilaterally, no wheezes, rales or rhonchi, equal chest expansion Abdomen: soft, nontender, Bowel sounds noted, no guarding MSK: ROM intact, no joint swelling noted Extremities: no BLE edema, nontender calf, no cyanosis or clubbing Neuro: A&Ox3, moves all extremities, no focal deficits Psych: Appropriate mood and behavior Consult Discharge Plan - Plan Instructions: Heart Failure (DC), Chronic Obstructive Pulmonary Disease (DC) Referrals: Justice Tapia MD [Primary Care Provider] - 05/30/18 2:00 pm Prescriptions: RX: Amoxicillin/Clavulanate [Augmentin] 875 mg PO BIDWM 6 Days #12 tablet predniSONE [PredniSONE] 40 mg PO DAILY 5 Days #5 tablet RX: Sulfamethoxazole/Trimeth DS [Bactrim Ds] 1 each PO BID 13 Days #26 tablet - Attending Attestation I examined this patient and my medical decision-making was reviewed with the Resident Physician. I agree with the documented findings, disposition and treatment plan as described except to the extent set forth below. Patient doing well clinically Continue Augmentin for 7 days Continue Bactrim for 14 days Patient instructed to call us if she has any signs of allergic reaction.
[2018-05-24 11:19] VITALS: BP 179/68
--- NOTE | 2018-05-24 20:56 | Electrocardiograph Report ---
[address] [place] [address] Test Date: 2018-05-23 Pat Name: Antoinette Rodas Department: 115 Room: 3A32 Gender: F Music Education Director: : [id number] Requested By: Margo Aguilar Order Number: [id number] Reading MD: Magalie You Measurements Intervals [place] Rate: 76 P: 50 [place]: 152 QRS: -76 QRSD: 145 T: 85 QT: 442 QTc: 472 Interpretive Statements ELECTRONIC VENTRICULAR PACEMAKER ABNORMAL RHYTHM ECG Electronically Signed On 05-24-2018 20:54:27 EST by Magalie You
== END 2018-05-24 14:18 | disposition home or self-care (01) | DRG 194 ==
LOC: 3ANU → SUATTDRO 13:21 → ICNU 15:40 → 3ANU 05-22 12:06
PROVIDERS: ADMIT Internal Medicine; ATTEND Internal Medicine

== ENCOUNTER 2018-11-08 01:50 | Observation (INO) ==
[2018-11-08] MEDS ORDERED: Naloxone 0.4 MG/ML INJ IVP PRN (03:16)
[2018-11-08] MEDS ORDERED: Ondansetron 4 MG/2 ML VIAL IVP PRN (03:16)
[2018-11-08] MEDS ORDERED: Acetaminophen 325 MG TABLET PO PRN (03:16)
--- NOTE | 2018-11-08 04:27 | Internal Med History&Physical ---
Date of Encounter: 11/08/18 Time of Encounter: 22:00 Internal Medicine - H&P: HPI Chief complaint: chest pain History of present illness: Ms. Rodas is a 82 year old female with pmh of history of CAD, PE . A.Fib with 5 or 6 stents and Averell angiograms. who presented with resistant chest pain. The patient stated that she tried to take 3 tablets of nitroglycerin which alleviated her pain for a short time but it was not resolved completely, the patient describes the pain as sharp in character with no radiation. The patient denies shortness of breath, diaphoresis, nausea, palpitation, paroxysmal nocturnal dyspnea, orthopnea, or progressive forcing of lower extremity edema. The patient was evaluated by the ER team and EKG was was was no significant ST-T wave changes troponin was within normal limits. The patient have cardiac catheter in June and there was no reported intervention. The patient was admitted for further evaluation and management and to rule out acute coronary syndrome Past Med Surg Social Fam HX - Past Medical History Medical history: asthma, atrial fibrillation, cancer, CHF, COPD, coronary artery disease, diabetes, GERD, hyperlipidemia, hypertension, pulmonary embolus, other Additional medical history: MACULAR DEGENERATION Psychiatric history: no psych history - Past Surgical History Surgical History: angioplasty/stent, appendectomy, breast surgery, cataract, cholecystectomy, pacemaker/AICD Additional surgical history: Left mastectomy, Cardiac stents X 5, PACEMAKER, RT FOOT SURG, BASAL CELL SURG FROM FACE, Multiple heart caths - Social History Smoking Status: Former smoker Smokeless Tobacco Status: No Alcohol use: none Drug use: none - Family History Mother Living Status: Hx Family Cardiac Disorders: Yes Hx Family Endocrine Disorder: Yes Father Adopted: No Family Member Ethnicity: Non- Living Status: Hx Family Cardiac Disorders: No Hx Family Respiratory Disorders: Yes Hx Family Cancer: Yes Hx Family GI Disorders: No Hx Family Endocrine Disorder: No Hx Family Neuromuscular Disorders: No Hx Family Neurologic Disorders: No Hx Family HEENT Disorders: No Hx Family Autoimmune Disorders: No Sister Living Status: Still Living Hx Family Cancer: Yes (Breast cancer) Internal Medicine - H&P: Meds RX: Albuterol Sulfate [Proventil Inhaler] 2 puff IH Q4H PRN 11/28/14 [History] RX: Calcium Carbonate/Vitamin D3 [Calcium 250-D Tablet] 1 each PO BID 11/28/14 [History] RX: Formoterol Fumarate [Perforomist] 20 mcg IH BID 11/28/14 [History] RX: Cholecalciferol (D-3) [Vitamin D] 1,000 unit PO QAM 04/28/16 [History] RX: Diltiazem CD (24hr) [Cardizem CD] 120 mg PO BID 04/28/16 [History] RX: Fish Oil/Dha/Epa [Fish Oil 1,200 mg Fish Oil] 2 each PO QAM 06/01/16 [History] RX: Tiotropium [Spiriva] 18 mcg IH QAM 08/24/17 [History] RX: Aspirin [Lo-Dose Aspirin EC] 81 mg PO DAILY 01/18/18 [History] RX: Cyanocobalamin/Folic AC/Vit B6 [Folbic Tablet] 1 each PO QAM 01/18/18 [History] RX: Budesonide Neb [Pulmicort Neb] 0.25 mg IH BIDR 03/30/18 [History] RX: Nitroglycerin 0.1 mg TD DAILY 03/30/18 [History] RX: Latanoprost [Xalatan] 1 drop BOTH EYES HS 04/16/18 [History] RX: Atorvastatin Calcium [Lipitor] 80 mg PO HS 05/21/18 [History] RX: Clopidogrel [Plavix] 75 mg PO QAM 05/21/18 [History] RX: Ezetimibe [Zetia] 10 mg PO QPM 05/21/18 [History] RX: Furosemide [Lasix] 20 mg PO QAM 05/21/18 [History] RX: Potassium Chloride [Klor-Con 10] 10 meq PO BIDWM 05/21/18 [History] RX: Nitroglycerin 0.4 mg SL Q5MIN PRN tab.subl 06/14/18 [Rx] RX: Fluticasone Propionate Nasal [Flonase] 1 spray NS QAM 11/07/18 [History] RX: Alendronate Sodium 70 mg PO TH 11/08/18 [History] RX: Esomeprazole Magnesium [Nexium 24Hr] 20 mg PO QAM 11/08/18 [History] RX: GlipiZIDE [Glucotrol] 5 mg PO BID 11/08/18 [History] RX: Isosorbide MONOnitrate (24 HR) [Imdur] 60 mg PO BID #60 tab.er.24h 11/08/18 [Rx] RX: Nitroglycerin 0.2 mg TD DAILY 11/08/18 [History] RX: Sotalol HCl [Betapace AF] 120 mg PO BID 11/08/18 [History] RX: Warfarin Sodium 2 mg PO DAILY 11/08/18 [History] RX: Warfarin Sodium 5 mg PO DAILY 11/08/18 [History] Allergy/AdvReac Type Severity Reaction Status Date / Time bacitracin Allergy Blister Verified 11/07/18 22:50 [From Neosporin ([id number])] cetirizine Allergy Confusion Verified 11/07/18 22:50 ciprofloxacin Allergy Difficulty Verified 11/07/18 22:50 Breathing codeine Allergy Drowsy Verified 11/07/18 22:50 diazepam [From Valium] Allergy See Verified 11/07/18 22:50 Comments miconazole Allergy Blister Verified 11/07/18 22:50 [From Neosporin AF] Neomycin Allergy Blister Verified 11/07/18 22:50 Penicillins Allergy See Verified 11/07/18 22:50 Comments polymyxin B Allergy Blister Verified 11/07/18 22:50 promethazine [From Phenergan] Allergy See Verified 11/07/18 22:50 Comments ranolazine [From Ranexa] Allergy See Verified 11/07/18 22:50 Comments Sulfa (Sulfonamide Allergy Confusion Verified 11/07/18 22:50 Antibiotics) All Systems PM: A 10-system review of systems was performed and is negative for pertinent findings except as documented above in the HPI. - Constitutional Vitals: Temp Pulse Resp BP Pulse Ox 97.5 F L 64 15 109/65 99 11/08/18 02:15 11/08/18 02:15 11/08/18 02:15 11/08/18 02:15 11/08/18 02:15 General appearance: Present: A&O X 3 Exam: . - Head Head exam: Present: atraumatic, normocephalic - Neck Neck exam general surgery: Present: supple, trachea midline. Absent: lymphadenopathy - Respiratory Respiratory exam: Present: CTAB. Absent: accessory muscle use, rales, rhonchi, wheezes - Cardiovascular Cardiovascular exam: Present: RRR, +S1, +S2. Absent: diastolic murmur, gallop, rubs, systolic murmur - GI/Abdominal GI/Abdominal exam: Present: normal bowel sounds, soft, no peritoneal signs. Absent: distended, tenderness - Extremities Exam Extremities exam: Present: warm, radial pulses palpable and symmetrical. Absent: calf tenderness, cyanotic, pedal edema Internal Med - H&P Results - Labs CBC & Chem 7: 11/08/18 04:21 11/08/18 04:21 - Assessment and Plan (1) Chest pain Status: Resolved Assessment and plan: ASSESSMENT: - Chest pain R/O CAD DD, *Muskuloskeletal CP - myofascial strain, costochondritis *GERD *Esophageal spasm *Pericarditis - unlikely - Cardiac enzymes x 2 q 8 hr - EKG now and in AM - ASA - O2 by NC to keep SpO2 greater than 92% - UA - CBCD, BMP in AM - Fasting lipids - 2D Echo Qualifiers: Chest pain type: chest pain due to myocardial ischemia Ischemic chest pain type: stable angina pectoris Qualified Code(s): I20.8 - Other forms of angina pectoris (2) Coronary artery disease Status: Chronic Assessment and plan: We will continue home medications Qualifiers: Coronary Disease-Associated Artery/Lesion type: [place] artery [place] vs. transplanted heart: [place] heart Associated angina: with stable angina Qualified Code(s): I25.118 - Atherosclerotic heart disease of [place] coronary artery with other forms of angina pectoris (3) Anemia Status: Chronic Qualifiers: Anemia type: unspecified type Qualified Code(s): D64.9 - Anemia, unspecified (4) Anticoagulated on Coumadin Status: Chronic Assessment and plan: We will continue Coumadin and continue to monitor INR for further adjustment (5) COPD (chronic obstructive pulmonary disease) Status: Chronic Assessment and plan: We will cont. home inhalers Qualifiers: COPD type: chronic bronchitis Chronic bronchitis type: unspecified Qualified Code(s): J42 - Unspecified chronic bronchitis (6) Chronic diastolic CHF (congestive heart failure) Status: Chronic Assessment and plan: There is no evidence of exacerbation, cont home meds. (7) HTN (hypertension) Status: Chronic Assessment and plan: We will cont. home meds, we will cont. to monitor blood pressure while inpatient and adjust regimen if indicated. Qualifiers: Hypertension type: essential hypertension Qualified Code(s): I10 - Essential (primary) hypertension (8) History of pulmonary embolus (PE) Status: Chronic Assessment and plan: The patient on chronic anticoagulation with warfarin (9) Pacemaker Status: Chronic (10) Paroxysmal atrial fibrillation Status: Chronic Assessment and plan: The patient on chronic anticoagulation with warfarin - Time Spent With Patient Total time spent is greater than 50% in coordination of care (as documented) at patient's floor/unit and/or counseling patient:
[2018-11-08 04:41] LABS: Hematocrit 26.6 % (35.3-44.9); Monocytes % 11.4 %
[2018-11-08 04:43] LABS: Basophils % 0.2 %; Eosinophils # 0.1 K/mcL (0.0-0.6); Eosinophils % 1.6 %; Hemoglobin 7.3 g/dL (11.5-15.4); Immature Granulocytes % 0.2 % (0-4); Lymphocytes # 1.8 K/mcL (0.6-4.6); Lymphocytes % 31.8 %; Mean Corpuscular HGB Conc 27.4 g/dL (31.6-35.5); Mean Corpuscular Hemoglobin 21.3 pg (28.0-33.3); Mean Corpuscular Volume 77.8 fL (83.0-100.0); Mean Platelet Volume 9.9 fL (9.4-12.4); Monocytes # 0.6 K/mcL (0.0-1.3); Neutrophils # 3.1 K/mcL (1.6-8.9); Platelet Count 241 K/mcL (140-400); Red Blood Count 3.42 M/mcL (3.82-4.97); Red Cell Distribution Width 17.4 % (11.5-14.5); Segmented Neutrophils % 54.8 %; White Blood Count 5.6 K/mcL (4.3-11.1)
[2018-11-08 04:47] LABS: INR 1.9
[2018-11-08 04:50] LABS: Activated Partial Thrombo Time 44.9 Seconds (26.0-36.0)
[2018-11-08 05:00] LABS: Alanine Aminotransferase 19 Units/L (7-52); Albumin 3.4 g/dL (3.5-5.7); Albumin/Globulin Ratio 1.8 (1.1-2.2); Alkaline Phosphatase 49 Units/L (34-104); Aspartate Amino Transferase 18 Units/L (13-39); BUN/Creatinine Ratio 45 (6-26); Bilirubin,Total 0.2 mg/dL (0.3-1.0); Blood Urea Nitrogen 24 mg/dL (8-23); Calcium 8.3 mg/dL (8.6-10.3); Carbon Dioxide 32 mEq/L (23-29); Chloride 103 mEq/L (98-107); Cholesterol 137 mg/dL (< 200); Globulin 1.9 g/dL (2.4-3.5); Glucose 107 mg/dL (70-105); HDL Cholesterol 46 mg/dL (40-59); LDL Cholesterol,Calculated 58 mg/dL (0-99); Magnesium 2.1 mg/dL (1.6-2.6); Osmolality,Calculated 303 (280-300); Phosphorous 3.5 mg/dL (2.7-4.5); Potassium 4.2 mEq/L (3.5-5.1); Sodium 144 mEq/L (136-145); Total Protein 5.3 g/dL (6.4-8.9); Triglycerides 165 mg/dL (< 150); eGFR For African Americans > 60 (> 60); eGFR For Non-African Americans > 60 (> 60)
[2018-11-08 05:09] LABS: Platelet Estimate Normal (Normal)
[2018-11-08 05:10] LABS: Anisocytosis 1+ (Not Present); Hypochromasia Present (Not Present); Microcytosis Present (Not Present)
[2018-11-08] MEDS ORDERED: Nitroglycerin 0.4 MG TAB.SUBL SL PRN (07:08)
[2018-11-08] MEDS ORDERED: Nitroglycerin 0.4 MG TAB.SUBL SL ONE (07:47)
[2018-11-08] MEDS ORDERED: Tiotropium 18 MCG inhalation IH SCH (09:00)
[2018-11-08] MEDS ORDERED: Isosorbide MONOnitrate (24 HR) 30 MG TAB.ER.24H PO SCH (09:00)
[2018-11-08] MEDS ORDERED: Aspirin Enteric Coated 81 MG Tablet PO SCH (09:00)
[2018-11-08] MEDS ORDERED: Nitroglycerin 0.1 MG PATCH.TD24 TD SCH (09:00)
[2018-11-08] MEDS ORDERED: (Fish Oil/Dha/Epa [Fish Oil 1,200 Mg Fish Oil] 1 EACH) PO SCH (09:00)
[2018-11-08] MEDS ORDERED: Cholecalciferol (D-3) 1,000 UNIT (25MCG) TABLET PO SCH (09:00)
[2018-11-08] MEDS ORDERED: FOLIC AC PO SCH (09:00)
[2018-11-08] MEDS ORDERED: Furosemide 20 MG TABLET PO SCH (09:00)
[2018-11-08] MEDS ORDERED: Fluticasone Propionate Nasal 50 MCG/SPRAY BOTTLE NS SCH (09:00)
[2018-11-08] MEDS ORDERED: VIT B6 PO SCH (09:00)
[2018-11-08] MEDS ORDERED: Diltiazem CD (24hr) 120 MG CAPSULE PO SCH (09:00)
[2018-11-08] MEDS ORDERED: CYANOCOBALAMIN PO SCH (09:00)
[2018-11-08] MEDS ORDERED: (Ezetimibe [Zetia] 10 MG) PO SCH (09:00)
[2018-11-08] MEDS ORDERED: Nitroglycerin 0.3 MG PATCH.TD24 TD SCH (09:00)
[2018-11-08] MEDS ORDERED: Budesonide Neb 0.25 MG/2 ML IH SCH (10:00)
--- NOTE | 2018-11-08 11:39 | Discharge Summary ---
- NOTES TO OUTPATIENT PROVIDER Notes to Outpatient Provider: f/u with PCP one week. f/u with cardiology in 1-2 weeks. please take Imdur 60 mg PO BID Orders not resulted at time of discharge: Pending orders 11/08/18 03:16 Urinalysis reflex Microscopic [URIN] Routine Date of Encounter: 11/08/18 Time of Encounter: 11:36 - Discharge Diagnosis (1) Chest pain Priority: Primary Status: Resolved Qualifiers: Chest pain type: chest pain due to myocardial ischemia Ischemic chest pain type: stable angina pectoris Qualified Code(s): I20.8 - Other forms of angina pectoris (2) Coronary artery disease Priority: Secondary Status: Chronic Qualifiers: Coronary Disease-Associated Artery/Lesion type: [place] artery [place] vs. transplanted heart: [place] heart Associated angina: with stable angina Qualified Code(s): I25.118 - Atherosclerotic heart disease of [place] coronary artery with other forms of angina pectoris (3) Pacemaker Priority: Secondary Status: Chronic (4) Anticoagulated on Coumadin Priority: Secondary Status: Chronic (5) Paroxysmal atrial fibrillation Priority: Secondary Status: Chronic (6) Chronic diastolic CHF (congestive heart failure) Priority: Secondary Status: Chronic (7) HTN (hypertension) Priority: Secondary Status: Chronic Qualifiers: Hypertension type: essential hypertension Qualified Code(s): I10 - Essential (primary) hypertension (8) History of pulmonary embolus (PE) Priority: Secondary Status: Chronic (9) COPD (chronic obstructive pulmonary disease) Priority: Secondary Status: Chronic Qualifiers: COPD type: chronic bronchitis Chronic bronchitis type: unspecified Qualified Code(s): J42 - Unspecified chronic bronchitis (10) Anemia Priority: Secondary Status: Chronic Qualifiers: Anemia type: unspecified type Qualified Code(s): D64.9 - Anemia, unspecified Hospital course: Ms. Rodas is a 82 year old female with PMH of history of CAD, PE, A.Fib with 5 or 6 stents and Averell angiograms. who presented with resistant chest pain. The patient stated that she tried to take 3 tablets of nitroglycerin which alleviated her pain for a short time but it was not resolved completely, the patient describes the pain as sharp in character with no radiation. The patient denies shortness of breath, diaphoresis, nausea, palpitation, paroxysmal nocturnal dyspnea, orthopnea, or progressive forcing of lower extremity edema. The patient was evaluated by the ER team and EKG was was was no significant ST-T wave changes troponin was within normal limits. The patient have cardiac catheter in June and there was no reported intervention. The patient was admitted for further evaluation and management and to rule out acute coronary syndrome - Time Spent with Patient Total time spent providing and/or coordinating discharge services: - Discharge Medications Prescriptions: Continued Tiotropium [Spiriva] 18 mcg IH QAM Latanoprost [Xalatan] 1 drop BOTH EYES HS Ezetimibe [Zetia] 10 mg PO QPM Clopidogrel [Plavix] 75 mg PO QAM Furosemide [Lasix] 20 mg PO QAM Atorvastatin Calcium [Lipitor] 80 mg PO HS Potassium Chloride [Klor-Con 10] 10 meq PO BIDWM Nitroglycerin 0.4 mg SL Q5MIN PRN tab.subl PRN Reason: Chest Pain Alendronate Sodium 70 mg PO TH Esomeprazole Magnesium [Nexium 24Hr] 20 mg PO QAM GlipiZIDE [Glucotrol] 5 mg PO BID Nitroglycerin 0.2 mg TD DAILY Sotalol HCl [Betapace AF] 120 mg PO BID Warfarin Sodium 5 mg PO DAILY Warfarin Sodium 2 mg PO DAILY Formoterol Fumarate [Perforomist] 20 mcg IH BID Calcium Carbonate/Vitamin D3 [Calcium 250-D Tablet] 1 each PO BID Albuterol Sulfate [Proventil Inhaler] 2 puff IH Q4H PRN PRN Reason: Wheezing Cholecalciferol (D-3) [Vitamin D] 1,000 unit PO QAM Diltiazem CD (24hr) [Cardizem CD] 120 mg PO BID Fish Oil/Dha/Epa [Fish Oil 1,200 mg Fish Oil] 2 each PO QAM Cyanocobalamin/Folic AC/Vit B6 [Folbic Tablet] 1 each PO QAM Aspirin [Lo-Dose Aspirin EC] 81 mg PO DAILY Budesonide Neb [Pulmicort Neb] 0.25 mg IH BIDR Nitroglycerin 0.1 mg TD DAILY Fluticasone Propionate Nasal [Flonase] 1 spray NS QAM Changed Isosorbide MONOnitrate (24 HR) [Imdur] 60 mg PO BID #60 tab.er.24h Home Medications: Albuterol Sulfate [Proventil Inhaler] 2 puff IH Q4H PRN 11/28/14 [History] Calcium Carbonate/Vitamin D3 [Calcium 250-D Tablet] 1 each PO BID 11/28/14 [History] Formoterol Fumarate [Perforomist] 20 mcg IH BID 11/28/14 [History] Cholecalciferol (D-3) [Vitamin D] 1,000 unit PO QAM 04/28/16 [History] Diltiazem CD (24hr) [Cardizem CD] 120 mg PO BID 04/28/16 [History] Fish Oil/Dha/Epa [Fish Oil 1,200 mg Fish Oil] 2 each PO QAM 06/01/16 [History] Tiotropium [Spiriva] 18 mcg IH QAM 08/24/17 [History] Aspirin [Lo-Dose Aspirin EC] 81 mg PO DAILY 01/18/18 [History] Cyanocobalamin/Folic AC/Vit B6 [Folbic Tablet] 1 each PO QAM 01/18/18 [History] Budesonide Neb [Pulmicort Neb] 0.25 mg IH BIDR 03/30/18 [History] Nitroglycerin 0.1 mg TD DAILY 03/30/18 [History] Latanoprost [Xalatan] 1 drop BOTH EYES HS 04/16/18 [History] Atorvastatin Calcium [Lipitor] 80 mg PO HS 05/21/18 [History] Clopidogrel [Plavix] 75 mg PO QAM 05/21/18 [History] Ezetimibe [Zetia] 10 mg PO QPM 05/21/18 [History] Furosemide [Lasix] 20 mg PO QAM 05/21/18 [History] Potassium Chloride [Klor-Con 10] 10 meq PO BIDWM 05/21/18 [History] Nitroglycerin 0.4 mg SL Q5MIN PRN tab.subl 06/14/18 [Rx] Fluticasone Propionate Nasal [Flonase] 1 spray NS QAM 11/07/18 [History] Alendronate Sodium 70 mg PO TH 11/08/18 [History] Esomeprazole Magnesium [Nexium 24Hr] 20 mg PO QAM 11/08/18 [History] GlipiZIDE [Glucotrol] 5 mg PO BID 11/08/18 [History] Isosorbide MONOnitrate (24 HR) [Imdur] 60 mg PO BID #60 tab.er.24h 11/08/18 [Rx] Nitroglycerin 0.2 mg TD DAILY 11/08/18 [History] Sotalol HCl [Betapace AF] 120 mg PO BID 11/08/18 [History] Warfarin Sodium 2 mg PO DAILY 11/08/18 [History] Warfarin Sodium 5 mg PO DAILY 11/08/18 [History] Allergies/Adverse Reactions: Allergy/AdvReac Type Severity Reaction Status Date / Time bacitracin Allergy Blister Verified 11/07/18 22:50 [From Neosporin ([id number])] cetirizine Allergy Confusion Verified 11/07/18 22:50 ciprofloxacin Allergy Difficulty Verified 11/07/18 22:50 Breathing codeine Allergy Drowsy Verified 11/07/18 22:50 diazepam [From Valium] Allergy See Verified 11/07/18 22:50 Comments miconazole Allergy Blister Verified 11/07/18 22:50 [From Neosporin AF] Neomycin Allergy Blister Verified 11/07/18 22:50 Penicillins Allergy See Verified 11/07/18 22:50 Comments polymyxin B Allergy Blister Verified 11/07/18 22:50 promethazine [From Phenergan] Allergy See Verified 11/07/18 22:50 Comments ranolazine [From Ranexa] Allergy See Verified 11/07/18 22:50 Comments Sulfa (Sulfonamide Allergy Confusion Verified 11/07/18 22:50 Antibiotics) Date of admission: 11/08/18 01:50 Primary care physician: Justice Tapia MD - Constitutional Vitals: Temp Pulse Resp BP Pulse Ox 97.8 F 70 15 107/57 99 11/08/18 07:36 11/08/18 07:36 11/08/18 07:36 11/08/18 07:36 11/08/18 07:36 General appearance: Present: A&O X 3, no acute distress, answers questions appropriately Exam: Gen: Alert, awake, Oriented to time,place and person Chest: Diminished breath sounds B/L, No wheezing, No crackles, No rales Heart: S1S2+ RRR No murmurs Abd: Soft, NT, BS +, No organomegaly Ext: No edema, pulses are palpable, No calf tenderness Neuro : No acute focal neuro deficits noticed Skin: No rash. - Patient Status Disposition: Home, Self-Care Condition: Good Overall status at discharge: patient is back to baseline - Discharge Instructions Follow Up With: Justice Tapia MD [Primary Care Provider] - Melo You MD [Partnered Physician] - - Diet and Activity Activity: increase activity as tolerated Diet: low salt diet
[2018-11-08 11:58] VITALS: BP 108/55
--- NOTE | 2018-11-08 16:19 | Electrocardiograph Report ---
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
[2018-11-08] MEDS ORDERED: Warfarin perPT PO PRN (18:00)
== END 2018-11-08 12:33 | disposition home or self-care (01) ==
LOC: 3BNU → SUATTDRO 01:50
PROVIDERS: ADMIT Family Medicine; ATTEND Family Medicine

== ENCOUNTER 2020-01-23 09:49 | Inpatient (IN) ==
[2020-01-23 14:55] LABS: Basophils % 0.3 %; Eosinophils # 0.1 K/mcL (0.0-0.6); Eosinophils % 1.8 %; Hematocrit 36.1 % (35.3-44.9); Hemoglobin 11.4 g/dL (11.5-15.4); Immature Granulocytes % 0.5 % (0-4); Lymphocytes # 1.7 K/mcL (0.6-4.6); Lymphocytes % 27.7 %; Mean Corpuscular HGB Conc 31.6 g/dL (31.6-35.5); Mean Corpuscular Hemoglobin 29.1 pg (28.0-33.3); Mean Corpuscular Volume 92.1 fL (83.0-100.0); Mean Platelet Volume 10.4 fL (9.4-12.4); Monocytes # 0.6 K/mcL (0.0-1.3); Monocytes % 9.6 %; Neutrophils # 3.7 K/mcL (1.6-8.9); Platelet Count 186 K/mcL (140-400); Red Blood Count 3.92 M/mcL (3.82-4.97); Red Cell Distribution Width 16.9 % (11.5-14.5); Segmented Neutrophils % 60.1 %; White Blood Count 6.2 K/mcL (4.3-11.1)
[2020-01-23 15:06] LABS: Prothrombin Time 23.2 Seconds (9.4-12.1)
[2020-01-23 15:08] LABS: Activated Partial Thrombo Time 40.2 Seconds (26.0-36.0)
[2020-01-23 15:14] LABS: BUN/Creatinine Ratio 33 (6-26); Blood Urea Nitrogen 21 mg/dL (8-23); Carbon Dioxide 32 mEq/L (23-29); Chloride 105 mEq/L (98-107); Glucose 151 mg/dL (70-105); Magnesium 1.8 mg/dL (1.6-2.6); Osmolality,Calculated 300 (280-300); Potassium 3.9 mEq/L (3.5-5.1); Sodium 142 mEq/L (136-145); eGFR For African Americans > 60 (> 60); eGFR For Non-African Americans > 60 (> 60)
[2020-01-23] MEDS: (Ezetimibe [Zetia] 10 MG) PO SCH (16:31)
[2020-01-23] MEDS: GlipiZIDE 5 MG TABLET PO SCH (17:25)
[2020-01-23] MEDS ORDERED: *HR* Warfarin 5 MG TABLET PO SCH (18:00)
[2020-01-23] MEDS: DilTIAZem CD (24hr) 120 MG CAP.ER.24H PO SCH (20:19)
[2020-01-23] MEDS: Isosorbide MONOnitrate (24 HR) 60 MG TAB.ER.24H PO SCH (20:20)
[2020-01-23] MEDS: Budesonide Neb 0.25 MG/2 ML IH SCH (20:24)
[2020-01-23] MEDS: Latanoprost 2.5 ML BOTTLE BOTH EYES SCH (20:24)
[2020-01-24] MEDS: Tiotropium 18 MCG inhalation IH SCH (07:50)
[2020-01-24] MEDS: Folic Acid 1 MG TABLET PO SCH (08:37)
[2020-01-24] MEDS: GlipiZIDE 5 MG TABLET PO SCH ×2 (08:37→17:27)
[2020-01-24] MEDS: Isosorbide MONOnitrate (24 HR) 60 MG TAB.ER.24H PO SCH ×2 (08:37→21:59)
[2020-01-24] MEDS: Pyridoxine (B-6) 50 MG TABLET PO SCH (08:37)
[2020-01-24] MEDS: Aspirin Enteric Coated 81 MG Tablet PO SCH (08:38)
[2020-01-24] MEDS: Cyanocobalamin (B-12) 1,000 MCG TABLET PO SCH (08:38)
[2020-01-24] MEDS: DilTIAZem CD (24hr) 120 MG CAP.ER.24H PO SCH ×2 (08:38→21:59)
[2020-01-24] MEDS: Cholecalciferol (D-3) 1,000 UNIT (25MCG) TABLET PO SCH (08:38)
[2020-01-24] MEDS: Furosemide 20 MG TABLET PO SCH (08:38)
[2020-01-24] MEDS: (Fish Oil/Dha/Epa [Fish Oil 1,200 Mg Fish Oil] PO SCH (10:17)
[2020-01-24] MEDS: Budesonide Neb 0.25 MG/2 ML IH SCH ×2 (12:04→19:38)
[2020-01-24] MEDS: (Ezetimibe [Zetia] 10 MG) PO SCH (17:23)
[2020-01-24] MEDS ORDERED: *HR* Warfarin 4 MG TABLET PO SCH (18:00)
[2020-01-24] MEDS: Latanoprost 2.5 ML BOTTLE BOTH EYES SCH (22:01)
[2020-01-25] MEDS: Tiotropium 18 MCG inhalation IH SCH (07:33)
[2020-01-25] MEDS: Budesonide Neb 0.25 MG/2 ML IH SCH (07:33)
[2020-01-25] MEDS: Pyridoxine (B-6) 50 MG TABLET PO SCH (08:34)
[2020-01-25] MEDS: DilTIAZem CD (24hr) 120 MG CAP.ER.24H PO SCH (08:34)
[2020-01-25] MEDS: Furosemide 20 MG TABLET PO SCH (08:34)
[2020-01-25] MEDS: Cholecalciferol (D-3) 1,000 UNIT (25MCG) TABLET PO SCH (08:35)
[2020-01-25] MEDS: GlipiZIDE 5 MG TABLET PO SCH (08:35)
[2020-01-25] MEDS: Folic Acid 1 MG TABLET PO SCH (08:36)
[2020-01-25] MEDS: Isosorbide MONOnitrate (24 HR) 60 MG TAB.ER.24H PO SCH (08:36)
[2020-01-25] MEDS: (Fish Oil/Dha/Epa [Fish Oil 1,200 Mg Fish Oil] PO SCH (08:37)
[2020-01-25] MEDS: Cyanocobalamin (B-12) 1,000 MCG TABLET PO SCH (08:37)
[2020-01-25] MEDS: Aspirin Enteric Coated 81 MG Tablet PO SCH (08:39)
[2020-01-25 08:49] VITALS: BP 125/59
[2020-01-25] MEDS ORDERED: NON-FORMULARY MEDICATION 1 EACH EACH (Alendronate Sodium 70 MG) PO SCH (13:21)
== END 2020-01-25 13:33 | disposition home or self-care (01) | DRG 309 ==
LOC: CDU
PROVIDERS: ADMIT Internal Medicine Clinical Cardiac Electrophysiology; ATTEND Internal Medicine Clinical Cardiac Electrophysiology

== ENCOUNTER 2020-10-12 09:32 | Observation (INO) ==
[2020-10-12] MEDS ORDERED: *HR* Heparin 5,000 UNIT/ML VIAL IVP PRN ×2 (15:01)
[2020-10-12] MEDS ORDERED: *HR* Heparin 5,000 UNIT/ML VIAL IVP ONE (15:01)
[2020-10-12] MEDS ORDERED: Furosemide 20 MG TABLET PO PRN (15:04)
[2020-10-12] MEDS ORDERED: Ondansetron 4 MG/2 ML VIAL IVP PRN (15:06)
[2020-10-12] MEDS ORDERED: *HR* Dextrose 50 % in Water (Vial) 50 ML VIAL IVP PRN (15:06)
[2020-10-12] MEDS ORDERED: Naloxone 0.4 MG/ML INJ IVP PRN (15:06)
[2020-10-12] MEDS ORDERED: D5% in Water 1,000 ML IVC PRN (15:06)
[2020-10-12] MEDS ORDERED: Dextrose Gel 15 GM/37.5 ML TUBE PO PRN ×2 (15:06)
[2020-10-12] MEDS ORDERED: Heparin 25,000UNIT/250ML 1/2NS 25,000 UNIT/250 ML IV.SOLN IVC SCH (15:15)
[2020-10-12 15:45] LABS: INR 2.4; Prothrombin Time 26.8 Seconds (9.4-12.1)
[2020-10-12] MEDS: Insulin LISPRO 300 UNITS/3 ML VIAL SUBQ SCH ×2 (16:24→19:13)
[2020-10-12] MEDS ORDERED: Perflutren Lipid Microsphere 1.3 ML in 0.9 % Sodium Chloride 8.7 ML IVP PRN (16:33)
[2020-10-12] MEDS ORDERED: Warfarin perPT PO PRN (18:00)
[2020-10-12] MEDS ORDERED: *HR* Warfarin 3 MG TABLET PO ONE (18:33)
[2020-10-13] MEDS ORDERED: Insulin LISPRO 300 UNITS/3 ML VIAL SUBQ ONE (03:30)
[2020-10-13 05:27] LABS: Basophils % 0.5 %; Eosinophils # 0.1 K/mcL (0.0-0.6); Eosinophils % 2.1 %; Hematocrit 40.5 % (35.3-44.9); Hemoglobin 12.8 g/dL (11.5-15.4); Immature Granulocytes % 0.5 % (0-4); Lymphocytes # 1.6 K/mcL (0.6-4.6); Lymphocytes % 23.9 %; Mean Corpuscular HGB Conc 31.6 g/dL (31.6-35.5); Mean Corpuscular Hemoglobin 30.3 pg (28.0-33.3); Mean Platelet Volume 10.6 fL (9.4-12.4); Monocytes # 0.7 K/mcL (0.0-1.3); Monocytes % 10.7 %; Neutrophils # 4.1 K/mcL (1.6-8.9); Platelet Count 191 K/mcL (140-400); Red Blood Count 4.22 M/mcL (3.82-4.97); Segmented Neutrophils % 62.3 %; White Blood Count 6.6 K/mcL (4.3-11.1)
[2020-10-13 05:33] LABS: Heparin anti-factor XA UFH 0.49 IU/mL (0.30-0.70)
[2020-10-13 05:34] LABS: Prothrombin Time 22.5 Seconds (9.4-12.1)
[2020-10-13 05:49] LABS: BUN/Creatinine Ratio 30 (6-26); Blood Urea Nitrogen 16 mg/dL (8-23); Calcium 9.1 mg/dL (8.6-10.3); Carbon Dioxide 37 mEq/L (23-29); Chloride 102 mEq/L (98-107); Glucose 93 mg/dL (70-105); Magnesium 2.1 mg/dL (1.6-2.6); Osmolality,Calculated 299 (280-300); Potassium 4.2 mEq/L (3.5-5.1); Sodium 144 mEq/L (136-145); Troponin I < 0.03 ng/mL (< 0.04); eGFR For African Americans > 60 (> 60); eGFR For Non-African Americans > 60 (> 60)
[2020-10-13] MEDS ORDERED: Tiotropium 10 INH DOSE IH ONE (07:52)
[2020-10-13] MEDS: Tiotropium 10 INH DOSE IH SCH (08:18)
[2020-10-13] MEDS: Insulin LISPRO 300 UNITS/3 ML VIAL SUBQ SCH ×4 (08:45→19:43)
[2020-10-13] MEDS ORDERED: Furosemide 20 MG/2 ML VIAL IVP ONE (08:48)
[2020-10-13] MEDS ORDERED: Aspirin 81 MG TAB.CHEW PO SCH (09:00)
[2020-10-13] MEDS: Isosorbide MONOnitrate (24 HR) 60 MG TAB.ER.24H PO SCH (09:12)
[2020-10-13] MEDS: DilTIAZem CD (24hr) 240 MG CAP.ER.24H PO SCH (09:13)
[2020-10-13] MEDS ORDERED: *HR* Warfarin 3 MG TABLET PO ONE (18:00)
[2020-10-13] MEDS: Budesonide Neb 0.25 MG/2 ML IH SCH (21:57)
[2020-10-14 06:03] LABS: Basophils % 0.2 %; Eosinophils # 0.1 K/mcL (0.0-0.6); Eosinophils % 2.6 %; Hematocrit 36.8 % (35.3-44.9); Hemoglobin 12.3 g/dL (11.5-15.4); Immature Granulocytes % 0.2 % (0-4); Lymphocytes # 1.5 K/mcL (0.6-4.6); Lymphocytes % 28.5 %; Mean Corpuscular HGB Conc 33.4 g/dL (31.6-35.5); Mean Corpuscular Hemoglobin 31.3 pg (28.0-33.3); Mean Corpuscular Volume 93.6 fL (83.0-100.0); Mean Platelet Volume 10.6 fL (9.4-12.4); Monocytes # 0.5 K/mcL (0.0-1.3); Monocytes % 9.8 %; Neutrophils # 3.1 K/mcL (1.6-8.9); Platelet Count 179 K/mcL (140-400); Red Blood Count 3.93 M/mcL (3.82-4.97); Red Cell Distribution Width 11.9 % (11.5-14.5); Segmented Neutrophils % 58.7 %; White Blood Count 5.3 K/mcL (4.3-11.1)
[2020-10-14 06:13] LABS: INR 2.3; Prothrombin Time 26.4 Seconds (9.4-12.1)
[2020-10-14 06:27] LABS: BUN/Creatinine Ratio 31 (6-26); Blood Urea Nitrogen 17 mg/dL (8-23); Calcium 9.2 mg/dL (8.6-10.3); Carbon Dioxide 37 mEq/L (23-29); Chloride 96 mEq/L (98-107); Glucose 102 mg/dL (70-105); Osmolality,Calculated 296 (280-300); Potassium 3.6 mEq/L (3.5-5.1); Sodium 142 mEq/L (136-145); eGFR For African Americans > 60 (> 60); eGFR For Non-African Americans > 60 (> 60)
[2020-10-14] MEDS: Insulin LISPRO 300 UNITS/3 ML VIAL SUBQ SCH ×2 (07:29→10:50)
[2020-10-14 07:31] VITALS: BP 147/80
[2020-10-14] MEDS: Isosorbide MONOnitrate (24 HR) 60 MG TAB.ER.24H PO SCH (07:46)
[2020-10-14] MEDS: DilTIAZem CD (24hr) 240 MG CAP.ER.24H PO SCH (07:46)
[2020-10-14] MEDS ORDERED: Fluticasone Propionate Nasal 50 MCG/SPRAY BOTTLE NS SCH (09:00)
[2020-10-14] MEDS ORDERED: Cholecalciferol (D-3) 1,000 UNIT (25MCG) TABLET PO SCH (09:00)
[2020-10-14] MEDS ORDERED: Tiotropium 10 INH DOSE IH SCH (10:00)
[2020-10-14] MEDS: Tiotropium 10 INH DOSE IH SCH (10:39)
[2020-10-14] MEDS: Budesonide Neb 0.25 MG/2 ML IH SCH (10:39)
[2020-10-14] MEDS ORDERED: *HR* Warfarin 3 MG TABLET PO ONE (18:00)
== END 2020-10-14 11:16 | disposition home or self-care (01) ==
LOC: 2ANU → SUATTDRO 13:55
PROVIDERS: ADMIT Internal Medicine; ATTEND Family Medicine

== ENCOUNTER 2021-08-02 12:21 | Observation (INO) ==
[2021-08-02] MEDS ORDERED: Naloxone 0.4 MG/ML INJ IVP PRN (15:12)
[2021-08-02] MEDS ORDERED: Acetaminophen 325 MG TABLET PO PRN (15:12)
[2021-08-02] MEDS ORDERED: Ondansetron 4 MG/2 ML VIAL IVP PRN (15:12)
[2021-08-02 15:49] LABS: Basophils % 0.3 %; Eosinophils # 0.1 K/mcL (0.0-0.6); Eosinophils % 1.4 %; Hematocrit 39.7 % (35.3-44.9); Hemoglobin 13.3 g/dL (11.5-15.4); Immature Granulocytes % 0.3 % (0-4); Lymphocytes # 1.5 K/mcL (0.6-4.6); Lymphocytes % 21.4 %; Mean Corpuscular HGB Conc 33.5 g/dL (31.6-35.5); Mean Corpuscular Hemoglobin 31.5 pg (28.0-33.3); Mean Corpuscular Volume 94.1 fL (83.0-100.0); Mean Platelet Volume 10.4 fL (9.4-12.4); Monocytes # 0.6 K/mcL (0.0-1.3); Monocytes % 8.2 %; Neutrophils # 4.8 K/mcL (1.6-8.9); Platelet Count 181 K/mcL (140-400); Red Blood Count 4.22 M/mcL (3.82-4.97); Red Cell Distribution Width 11.9 % (11.5-14.5); Segmented Neutrophils % 68.4 %
[2021-08-02 15:56] LABS: INR 2.3; Prothrombin Time 25.8 Seconds (9.4-12.1)
[2021-08-02 16:09] LABS: BUN/Creatinine Ratio 22 (6-26); Blood Urea Nitrogen 15 mg/dL (8-23); Calcium 9.1 mg/dL (8.6-10.3); Carbon Dioxide 36 mEq/L (23-29); Chloride 102 mEq/L (98-107); Glucose 130 mg/dL (70-105); Magnesium 1.7 mg/dL (1.6-2.6); Osmolality,Calculated 301 (280-300); Potassium 3.9 mEq/L (3.5-5.1); Sodium 144 mEq/L (136-145); eGFR For African Americans > 60 (> 60); eGFR For Non-African Americans > 60 (> 60)
[2021-08-02 16:10] LABS: Troponin I < 0.03 ng/mL (< 0.04)
[2021-08-02] MEDS ORDERED: *HR* Labetalol 20 MG/4 ML SYRINGE IVP PRN (16:28)
[2021-08-02] MEDS ORDERED: *HR* Dextrose 50 % in Water (Syg) 50 ML SYRINGE IVP PRN (16:33)
[2021-08-02] MEDS ORDERED: D5% in Water 1,000 ML IVC PRN (16:33)
[2021-08-02] MEDS ORDERED: Dextrose 4 GM Chewable Tablets PO PRN ×2 (16:33)
[2021-08-02] MEDS: Insulin LISPRO 300 UNITS/3 ML VIAL SUBQ SCH ×2 (16:55→20:39)
[2021-08-02] MEDS ORDERED: Nitroglycerin 0.4 MG TAB.SUBL SL PRN (17:11)
[2021-08-02] MEDS: Ipratropium/Albuterol Neb 3 ML IH PRN (17:21)
[2021-08-02] MEDS: DilTIAZem CD (24hr) 120 MG CAP.ER.24H PO SCH (20:44)
[2021-08-02] MEDS: Isosorbide MONOnitrate (24 HR) 60 MG TAB.ER.24H PO SCH (20:44)
[2021-08-03 06:21] LABS: Basophils % 0.3 %; Eosinophils # 0.1 K/mcL (0.0-0.6); Eosinophils % 1.6 %; Hematocrit 39.1 % (35.3-44.9); Hemoglobin 13.1 g/dL (11.5-15.4); Immature Granulocytes % 0.3 % (0-4); Lymphocytes # 1.8 K/mcL (0.6-4.6); Lymphocytes % 25.8 %; Mean Corpuscular HGB Conc 33.5 g/dL (31.6-35.5); Mean Corpuscular Hemoglobin 31.4 pg (28.0-33.3); Mean Corpuscular Volume 93.8 fL (83.0-100.0); Mean Platelet Volume 10.9 fL (9.4-12.4); Monocytes # 0.6 K/mcL (0.0-1.3); Monocytes % 8.8 %; Neutrophils # 4.5 K/mcL (1.6-8.9); Platelet Count 176 K/mcL (140-400); Red Blood Count 4.17 M/mcL (3.82-4.97); Red Cell Distribution Width 11.8 % (11.5-14.5); Segmented Neutrophils % 63.2 %; White Blood Count 7.1 K/mcL (4.3-11.1)
[2021-08-03 06:42] LABS: BUN/Creatinine Ratio 27 (6-26); Blood Urea Nitrogen 16 mg/dL (8-23); Calcium 9.3 mg/dL (8.6-10.3); Carbon Dioxide 37 mEq/L (23-29); Chloride 102 mEq/L (98-107); Glucose 116 mg/dL (70-105); Magnesium 1.8 mg/dL (1.6-2.6); Osmolality,Calculated 296 (280-300); Potassium 3.8 mEq/L (3.5-5.1); Sodium 142 mEq/L (136-145); eGFR For African Americans > 60 (> 60); eGFR For Non-African Americans > 60 (> 60)
[2021-08-03] MEDS: Insulin LISPRO 300 UNITS/3 ML VIAL SUBQ SCH ×4 (08:10→20:49)
[2021-08-03] MEDS: Isosorbide MONOnitrate (24 HR) 60 MG TAB.ER.24H PO SCH ×2 (08:59→20:48)
[2021-08-03] MEDS: DilTIAZem CD (24hr) 120 MG CAP.ER.24H PO SCH ×2 (08:59→20:49)
[2021-08-03 10:16] LABS: Estimated Average Glucose 114 mg/dl; Hemoglobin A1C 5.6 %
[2021-08-03] MEDS: Ipratropium/Albuterol Neb 3 ML IH PRN (15:53)
[2021-08-04 03:29] LABS: Basophils % 0.3 %; Eosinophils # 0.1 K/mcL (0.0-0.6); Eosinophils % 1.6 %; Hematocrit 37.9 % (35.3-44.9); Hemoglobin 12.6 g/dL (11.5-15.4); Immature Granulocytes % 0.3 % (0-4); Lymphocytes # 2.3 K/mcL (0.6-4.6); Lymphocytes % 30.1 %; Mean Corpuscular HGB Conc 33.2 g/dL (31.6-35.5); Mean Corpuscular Hemoglobin 31.3 pg (28.0-33.3); Mean Platelet Volume 11.1 fL (9.4-12.4); Monocytes # 0.7 K/mcL (0.0-1.3); Monocytes % 9.3 %; Neutrophils # 4.4 K/mcL (1.6-8.9); Platelet Count 175 K/mcL (140-400); Red Blood Count 4.03 M/mcL (3.82-4.97); Red Cell Distribution Width 11.7 % (11.5-14.5); Segmented Neutrophils % 58.4 %; White Blood Count 7.5 K/mcL (4.3-11.1)
[2021-08-04 03:42] LABS: INR 1.4; Prothrombin Time 15.4 Seconds (9.4-12.1)
[2021-08-04 05:27] LABS: BUN/Creatinine Ratio 34 (6-26); Blood Urea Nitrogen 21 mg/dL (8-23); Calcium 9.4 mg/dL (8.6-10.3); Carbon Dioxide 34 mEq/L (23-29); Chloride 101 mEq/L (98-107); Glucose 97 mg/dL (70-105); Magnesium 1.7 mg/dL (1.6-2.6); Osmolality,Calculated 295 (280-300); Potassium 3.8 mEq/L (3.5-5.1); Sodium 141 mEq/L (136-145); eGFR For African Americans > 60 (> 60); eGFR For Non-African Americans > 60 (> 60)
[2021-08-04] MEDS ORDERED: Regadenoson 0.4 MG/5 ML SYRINGE IVP ONE (06:13)
[2021-08-04 07:15] VITALS: O2SAT 97
[2021-08-04] MEDS: Insulin LISPRO 300 UNITS/3 ML VIAL SUBQ SCH ×2 (07:31→12:08)
[2021-08-04] MEDS ORDERED: Vitamin B Complex/Vit C/Vit E 1 EACH TABLET PO SCH (09:00)
[2021-08-04] MEDS ORDERED: Fluticasone Propionate Nasal 50 MCG/SPRAY BOTTLE NS SCH (09:00)
[2021-08-04] MEDS ORDERED: Folic Acid 1 MG TABLET PO SCH (09:00)
[2021-08-04] MEDS ORDERED: Cholecalciferol (D-3) 1,000 UNIT (25MCG) TABLET PO SCH (09:00)
[2021-08-04] MEDS ORDERED: Budesonide Neb 0.25 MG/2 ML IH SCH (10:00)
[2021-08-04] MEDS: Isosorbide MONOnitrate (24 HR) 60 MG TAB.ER.24H PO SCH (11:08)
[2021-08-04] MEDS: DilTIAZem CD (24hr) 120 MG CAP.ER.24H PO SCH (11:08)
[2021-08-04] MEDS: Ipratropium/Albuterol Neb 3 ML IH PRN (11:31)
[2021-08-04 14:44] VITALS: BP 133/73; PULSE 69; TEMP 97.8
[2021-08-04] MEDS ORDERED: Warfarin perPT PO PRN (18:00)
[2021-08-05] MEDS ORDERED: Furosemide 20 MG TABLET PO SCH (09:00)
== END 2021-08-04 15:10 | disposition home or self-care (01) ==
LOC: 3BNU → SUATTDRO 14:42
PROVIDERS: ADMIT Pharmacist; ATTEND Internal Medicine

== ENCOUNTER 2021-09-05 08:54 | Inpatient (IN) ==
[2021-09-05 10:26] LABS: Basophils % 0.1 %; Eosinophils % 0.1 %; Hematocrit 39.8 % (35.3-44.9); Hemoglobin 13.3 g/dL (11.5-15.4); Immature Granulocytes % 0.4 % (0-4); Lymphocytes % 6.1 %; Mean Corpuscular HGB Conc 33.4 g/dL (31.6-35.5); Mean Corpuscular Hemoglobin 31.4 pg (28.0-33.3); Mean Corpuscular Volume 93.9 fL (83.0-100.0); Mean Platelet Volume 10.5 fL (9.4-12.4); Monocytes % 6.5 %; Neutrophils # 13.8 K/mcL (1.6-8.9); Platelet Count 198 K/mcL (140-400); Red Blood Count 4.24 M/mcL (3.82-4.97); Segmented Neutrophils % 86.8 %; White Blood Count 15.9 K/mcL (4.3-11.1)
[2021-09-05 10:35] LABS: D-Dimer < 215 ng/mLFEU (0-500)
[2021-09-05 11:01] LABS: BUN/Creatinine Ratio 24 (6-26); Blood Urea Nitrogen 14 mg/dL (8-23); Calcium 9.5 mg/dL (8.6-10.3); Carbon Dioxide 34 mEq/L (23-29); Chloride 98 mEq/L (98-107); Glucose 112 mg/dL (70-105); Osmolality,Calculated 291 (280-300); Potassium 3.7 mEq/L (3.5-5.1); Sodium 140 mEq/L (136-145); Troponin I < 0.03 ng/mL (< 0.04); eGFR For African Americans > 60 (> 60); eGFR For Non-African Americans > 60 (> 60)
[2021-09-05] MEDS ORDERED: cefTRIAXone 1,000 MG in 0.9 % Sodium Chloride Mini Bag 100 ML IVPB ONE (11:18)
[2021-09-05] MEDS ORDERED: Azithromycin 500 MG in 0.9 % Sodium Chloride 250 ML IVPB ONE (11:18)
[2021-09-05] MEDS ORDERED: Naloxone 0.4 MG/ML INJ IVP PRN (11:27)
[2021-09-05] MEDS ORDERED: 0.9 % Sodium Chloride 1,000 ML IVC SCH (12:00)
[2021-09-05] MEDS ORDERED: cefTRIAXone 1,000 MG in 0.9 % Sodium Chloride 10 ML IVP ONE (12:00)
[2021-09-05] MEDS ORDERED: Ondansetron 4 MG/2 ML VIAL IVP PRN (12:27)
[2021-09-05 12:33] LABS: INR 2.8; Prothrombin Time 30.6 Seconds (9.4-12.1)
[2021-09-05 13:19] LABS: Adenovirus Not Detected (Not Detect); Bordetella Pertussis Not Detected (Not Detect); Chlamydophila pneumoniae Not Detected (Not Detect); Coronavirus 229E Not Detected (Not Detect); Coronavirus HKU1 Not Detected (Not Detect); Coronavirus NL63 Not Detected (Not Detect); Coronavirus OC43 Not Detected (Not Detect); Human Metapneumovirus Not Detected (Not Detect); Human Rhinovirus/Enterovirus Not Detected (Not Detect); Influenza A Subtype 2009 H1 Not Detected (Not Detect); Influenza B Not Detected (Not Detect); Mycoplasma pneumoniae Not Detected (Not Detect); Parainfluenza Virus 1 Not Detected (Not Detect); Parainfluenza Virus 2 Not Detected (Not Detect); Parainfluenza Virus 3 Not Detected (Not Detect); Parainfluenza Virus 4 Not Detected (Not Detect); Respiratory Syncytial Virus Not Detected (Not Detect); SARS-CoV-2 Not Detected (Not Detect)
[2021-09-05] MEDS: Ipratropium/Albuterol Neb 3 ML IH SCH ×3 (15:34→23:53)
[2021-09-05] MEDS: (Ezetimibe [Zetia] 10 MG Tablet) PO SCH (17:21)
[2021-09-05] MEDS ORDERED: *HR* Warfarin 3 MG TABLET PO ONE (18:00)
[2021-09-05] MEDS ORDERED: Warfarin perPT PO PRN (18:00)
[2021-09-05] MEDS: DilTIAZem CD (24hr) 120 MG CAP.ER.24H PO SCH (20:10)
[2021-09-05] MEDS: Isosorbide MONOnitrate (24 HR) 60 MG TAB.ER.24H PO SCH (20:10)
[2021-09-05] MEDS ORDERED: Albuterol 2.5 MG/3 ML NEBULIZER IH SCH (22:00)
[2021-09-05] MEDS: Budesonide Neb 0.25 MG/2 ML IH SCH (23:53)
[2021-09-06 02:57] LABS: Basophils % 0.2 %; Eosinophils % 0.2 %; Hematocrit 32.8 % (35.3-44.9); Hemoglobin 10.9 g/dL (11.5-15.4); Immature Granulocytes % 0.4 % (0-4); Lymphocytes # 1.8 K/mcL (0.6-4.6); Lymphocytes % 16.2 %; Mean Corpuscular HGB Conc 33.2 g/dL (31.6-35.5); Mean Corpuscular Hemoglobin 31.1 pg (28.0-33.3); Mean Corpuscular Volume 93.7 fL (83.0-100.0); Mean Platelet Volume 10.7 fL (9.4-12.4); Monocytes # 0.9 K/mcL (0.0-1.3); Monocytes % 8.1 %; Neutrophils # 8.4 K/mcL (1.6-8.9); Platelet Count 170 K/mcL (140-400); Red Cell Distribution Width 12.2 % (11.5-14.5); Segmented Neutrophils % 74.9 %; White Blood Count 11.3 K/mcL (4.3-11.1)
[2021-09-06 03:11] LABS: INR 2.7; Prothrombin Time 30.4 Seconds (9.4-12.1)
[2021-09-06 03:22] LABS: BUN/Creatinine Ratio 19 (6-26); Blood Urea Nitrogen 12 mg/dL (8-23); Calcium 8.7 mg/dL (8.6-10.3); Carbon Dioxide 35 mEq/L (23-29); Chloride 102 mEq/L (98-107); Glucose 93 mg/dL (70-105); Magnesium 1.6 mg/dL (1.6-2.6); Osmolality,Calculated 293 (280-300); Phosphorous 2.6 mg/dL (2.7-4.5); Potassium 3.4 mEq/L (3.5-5.1); Sodium 142 mEq/L (136-145); eGFR For African Americans > 60 (> 60); eGFR For Non-African Americans > 60 (> 60)
[2021-09-06] MEDS: Ipratropium/Albuterol Neb 3 ML IH SCH ×5 (03:58→20:43)
[2021-09-06] MEDS: Budesonide Neb 0.25 MG/2 ML IH SCH ×2 (07:42→20:43)
[2021-09-06] MEDS ORDERED: Azithromycin 250 MG TABLET PO SCH (09:00)
[2021-09-06] MEDS ORDERED: Tiotropium 10 INH DOSE IH SCH (10:00)
[2021-09-06] MEDS: Magnesium Oxide 400 MG TABLET PO SCH (10:20)
[2021-09-06] MEDS: Isosorbide MONOnitrate (24 HR) 60 MG TAB.ER.24H PO SCH ×2 (10:20→21:55)
[2021-09-06] MEDS: Furosemide 20 MG TABLET PO SCH (10:21)
[2021-09-06] MEDS: cefTRIAXone 1,000 MG in 0.9 % Sodium Chloride 10 ML IVP SCH (10:21)
[2021-09-06] MEDS: DilTIAZem CD (24hr) 120 MG CAP.ER.24H PO SCH ×2 (10:21→21:55)
[2021-09-06] MEDS: Doxycycline 100 MG in 0.9 % Sodium Chloride Mini Bag 100 ML IVPB SCH ×2 (10:27→18:21)
[2021-09-06] MEDS: Nitroglycerin 0.4 MG PATCH.TD24 TD SCH (10:34)
[2021-09-06] MEDS: predniSONE 20 MG TABLET PO SCH (14:46)
[2021-09-06] MEDS: Fluticasone Propionate Nasal 50 MCG/SPRAY BOTTLE NS SCH (14:47)
[2021-09-06] MEDS ORDERED: *HR* Warfarin 3 MG TABLET PO ONE (18:00)
[2021-09-06] MEDS: (Ezetimibe [Zetia] 10 MG Tablet) PO SCH (18:24)
[2021-09-07 02:27] LABS: Basophils % 0.2 %; Hematocrit 32.8 % (35.3-44.9); Hemoglobin 11.2 g/dL (11.5-15.4); Immature Granulocytes % 0.6 % (0-4); Lymphocytes # 0.9 K/mcL (0.6-4.6); Lymphocytes % 14.4 %; Mean Corpuscular HGB Conc 34.1 g/dL (31.6-35.5); Mean Corpuscular Hemoglobin 31.3 pg (28.0-33.3); Mean Corpuscular Volume 91.6 fL (83.0-100.0); Mean Platelet Volume 10.5 fL (9.4-12.4); Monocytes # 0.4 K/mcL (0.0-1.3); Monocytes % 6.6 %; Neutrophils # 5.1 K/mcL (1.6-8.9); Platelet Count 163 K/mcL (140-400); Red Blood Count 3.58 M/mcL (3.82-4.97); Red Cell Distribution Width 11.9 % (11.5-14.5); Segmented Neutrophils % 78.2 %; White Blood Count 6.5 K/mcL (4.3-11.1)
[2021-09-07 02:36] LABS: INR 2.6; Prothrombin Time 28.3 Seconds (9.4-12.1)
[2021-09-07 02:51] LABS: BUN/Creatinine Ratio 35 (6-26); Blood Urea Nitrogen 19 mg/dL (8-23); Calcium 8.5 mg/dL (8.6-10.3); Carbon Dioxide 29 mEq/L (23-29); Chloride 102 mEq/L (98-107); Glucose 123 mg/dL (70-105); Osmolality,Calculated 294 (280-300); Potassium 3.6 mEq/L (3.5-5.1); Sodium 140 mEq/L (136-145); eGFR For African Americans > 60 (> 60); eGFR For Non-African Americans > 60 (> 60)
[2021-09-07] MEDS: Ipratropium/Albuterol Neb 3 ML IH SCH ×2 (04:33→10:00)
[2021-09-07] MEDS: Doxycycline 100 MG in 0.9 % Sodium Chloride Mini Bag 100 ML IVPB SCH (05:09)
[2021-09-07] MEDS: Furosemide 20 MG TABLET PO SCH (09:14)
[2021-09-07] MEDS: DilTIAZem CD (24hr) 120 MG CAP.ER.24H PO SCH (09:14)
[2021-09-07] MEDS: Isosorbide MONOnitrate (24 HR) 60 MG TAB.ER.24H PO SCH (09:14)
[2021-09-07] MEDS: Magnesium Oxide 400 MG TABLET PO SCH (09:14)
[2021-09-07] MEDS: predniSONE 20 MG TABLET PO SCH (09:14)
[2021-09-07] MEDS: Nitroglycerin 0.4 MG PATCH.TD24 TD SCH (09:15)
[2021-09-07] MEDS: Fluticasone Propionate Nasal 50 MCG/SPRAY BOTTLE NS SCH (09:15)
[2021-09-07] MEDS: Budesonide Neb 0.25 MG/2 ML IH SCH (10:00)
[2021-09-07] MEDS: cefTRIAXone 1,000 MG in 0.9 % Sodium Chloride 10 ML IVP SCH (10:17)
[2021-09-07 10:18] VITALS: BP 147/73; PULSE 71; TEMP 98; O2SAT 98
[2021-09-07] MEDS ORDERED: Cefdinir 300 MG CAPSULE PO SCH (11:15)
[2021-09-07] MEDS ORDERED: *HR* Warfarin 3 MG TABLET PO ONE (18:00)
== END 2021-09-07 12:07 | disposition home health service (06) | DRG 871 ==
LOC: EMEROOARM 08:54 → 3ANU 08:54 → SUATTDRO 11:40 → 3ANU 12:41
PROVIDERS: ADMIT Internal Medicine; ATTEND Internal Medicine